=== PATIENT | female | born 1960 | race Caucasian/White ===

== ENCOUNTER 2018-05-27 06:54 | Emergency (ER) | payer BC, SELFPAY ==
[2018-05-27 06:58] VITALS: BP 167/80; PULSE 57; RESP 16; TEMP 36.7; O2SAT 98
--- NOTE | 2018-05-27 07:06 | W.ED.GENAD ---
Discharge Plan Disposition Patient Disposition: HOME Condition: Good Discharge Details Chief Complaint: Orthopedic Clinical Impression: Closed fracture of neck of left humerus Primary Care Provider: Phyllis Daniels ED Provider: Donis Simms Home Meds and New Rx's Prescriptions: Continue omeprazole 10 MG capsule,delayed release(DR/EC) 20 mg PO BID RF: 0 venlafaxine 37.5 MG tablet 37.5 mg PO HS RF: 0 omega-3 fatty acids-fish oil [Fish Oil] 1 EACH capsule 2 ea PO BID RF: 0 fexofenadine [Aller-ease] 180 MG tablet 1 tab PO DAILY RF: 0 fluticasone 16 GM spray,suspension 1 spry Inhalation PRN PRNRF: 0 Discharge Instructions Additional Instructions: Wear the sling for comfort but you may remove it as you want. Would avoid lifting anything with your left arm. Use ice to help with pain. Use Tylenol and Motrin as we discussed alternating so that something is always there for pain control. Follow-up with Dr. Flores within a week. Return to ED for numbness, weakness, worsening pain or other concerns Referrals: Alejandro Flores MD [ [facility] STAFF PHYSICIAN] - Medical Decision Making Patient with left shoulder injury, dislocation versus fracture versus soft tissue, but given the inability to move/lift arm without severe pain, likely the former. She is NVI distal and sensory in tact in the axillary nerve distribution. Some pain with ROM in the left elbow, but that seems to be coming from the shoulder. Otherwise exam is normal with no other injury. Will place IV and give morphine for pain prior to sending for x-ray. Patient has not had anything to eat or drink other than water to take the Motrin prior to coming in. X-rays were obtained. Patient has a left humeral neck fracture with some displacement. Elbow was negative. There is no dislocation. Case discussed and reviewed with Dr. Flores. Patient will follow up with him within the week. She will use a sling for comfort. Motrin, Tylenol, ice for pain. She declines narcotic pain medication. She is discharged home in good condition. HPI General Mode of arrival: ambulatory. Date/Time Provider Initiated Documentation: 05/27/18 07:05. Limitations to Documentation: no limitations. Information obtained by: patient. HPI Narrative: Patient presents to ED with left upper arm pain, mostly shoulder after tripping and falling this morning while taking the dogs out. She is right hand dominant. When she fell she struck a shed before hitting the ground. She denies LOC. She denies neck pain, chest pain, shortness of breath, back pain. She is ambulatory and drove herself here after taking Motrin at home. She is unable to move the left arm due to pain in the shoulder. She has no numbness or weakness distal. Related Data Home Medications Medication Instructions Recorded Confirmed omeprazole 20 mg PO BID tab-cap NS 05/25/13 05/27/18 fexofenadine [Aller-ease] 1 tab PO DAILY 06/24/13 05/27/18 fluticasone 1 spry INHALATION PRN PRN 06/25/13 05/27/18 venlafaxine 37.5 mg PO HS 12/13/14 05/27/18 omega-3 fatty acids-fish oil [Fish 2 ea PO BID 04/25/16 05/27/18 Oil] Allergies Allergy/AdvReac Type Severity Reaction Status Date / Time Environmental Allergy Mild Rhinitis Uncoded 06/11/17 20:00 General Stated Complaint: Orthopedic AMRIT: 4 Review of Systems Constitutional Denies headache(s) and Denies weakness ENT Denies headache(s), Denies epistaxis and Denies neck pain Cardiovascular Denies chest pain, Denies syncope and Denies dyspnea Respiratory Denies dyspnea Gastrointestinal Denies abdominal pain, Denies nausea and Denies vomiting Musculoskeletal Denies back pain, Reports arthralgias, Denies muscle weakness, Denies neck pain, Denies numbness and Denies tingling Integumentary/Breasts Denies wounds Neurologic Denies syncope, Denies headache(s), Denies focal weakness, Denies numbness, Denies tingling and Denies weakness PFSH Family History Maternal Aunt Personal history of malignant neoplasm Maternal Aunt Personal history of malignant neoplasm Medical History GERD (gastroesophageal reflux disease) (Chronic) Menopausal symptoms Social History Smoking/Tobacco Use Status: Former Tobacco Use Surgical History S/P cholecystectomy (Inactive) Ligation of fallopian tube Tonsillectomy and adenoidectomy Exam Const General: cooperative and other (uncomfortable) Nutritional Appearance: overweight Orientation: alert and oriented x3 HENMT Head: normocephalic and atraumatic General nose exam: external nose normal Face and sinus: normal facial exam Neck Neck: normal visual inspection, full ROM and supple Chest Chest: normal palpation of entire chest wall and no localized rib tenderness Resp Effort & Inspection: normal respiratory effort Auscultation: clear to auscultation bilaterally Cardio Rate: regular rate Rhythm: regular rhythm Heart Sounds: S1 normal and S2 normal Back/Spine/Pelvis Cervical Spine: cervical ROM normal and No cervical spinal tenderness Thoracic/Lumbar Spine: No thoracic spinal tenderness and No lumbar spinal tenderness Skin Trauma: no lacerations or abrasions Neuro General: alert, oriented x3, no focal motor deficits and CN's II-XI intact bilaterally Sensory Exam: no sensory deficits noted Extrem General: normal to inspection and normal exam except as noted Left upper extremity: normal capillary refill, shoulder/upper arm Details: tenderness, axillary nerve sensory function normal and abnormal ROM; no deformity, elbow/forearm Details: abnormal ROM and distal pulses intact; no tenderness, wrist Details: normal to inspection, normal ROM and radial pulse present; no tenderness and hand Details: normal to inspection, normal capillary refill, neuromotor exam normal and neurosensory exam normal; ROM limited Course Vital Signs Temperature 98.1 F 05/27/18 06:58 Pulse 57 L 05/27/18 06:58 Respiratory Rate 16 05/27/18 06:58 Blood Pressure 167/80 H 05/27/18 06:58 Pulse Oximetry 98 05/27/18 06:58 Temperature 98.1 F 05/27/18 06:58 Temperature Source Temporal Artery Scan 05/27/18 06:58 Pulse 57 L 05/27/18 06:58 Respiratory Rate 16 05/27/18 06:58 Respiratory Effort 05/27/18 07:01 Blood Pressure 167/80 H 05/27/18 06:58 Blood Pressure Position Sitting 05/27/18 06:58 Pulse Oximetry 98 05/27/18 06:58 Oxygen Delivery Method Room Air 05/27/18 06:58 Oxygen Flow Rate 0 05/27/18 06:58 Pain Level 10 05/27/18 06:58
--- NOTE | 2018-05-27 07:15 | DI.RAD_ITS ---
SYMPTOM/DIAGNOSIS: TRAUMA, PAIN LEFT SHOULDER: Three views. There is a comminuted fracture involving the proximal humerus. The main component of the fracture is a transverse fracture through the surgical neck. The fracture extends proximally into the region of the greater tuberosity. There is mild medial displacement of the distal fracture fragment. The glenohumeral joint appears well maintained as is the acromioclavicular joint. The soft tissues are unremarkable. IMPRESSION: Comminuted, mildly displaced fracture involving the proximal left humerus. LEFT ELBOW: Three views. No bone or joint abnormality is identified. The soft tissues are unremarkable. IMPRESSION: Negative examination.
--- NOTE | 2018-05-27 07:21 | ED.GENADUL_ITS ---
Discharge Plan Disposition Patient Disposition: HOME Condition: Good Discharge Details Chief Complaint: Orthopedic Clinical Impression: Closed fracture of neck of left humerus Primary Care Provider: Phyllis Daniels ED Provider: Donis Simms Home Meds and New Rx's Prescriptions: Continue omeprazole 10 MG capsule,delayed release(DR/EC) 20 mg PO BID RF: 0 venlafaxine 37.5 MG tablet 37.5 mg PO HS RF: 0 omega-3 fatty acids-fish oil [Fish Oil] 1 EACH capsule 2 ea PO BID RF: 0 fexofenadine [Aller-ease] 180 MG tablet 1 tab PO DAILY RF: 0 fluticasone 16 GM spray,suspension 1 spry Inhalation PRN PRNRF: 0 Discharge Instructions Additional Instructions: Wear the sling for comfort but you may remove it as you want. Would avoid lifting anything with your left arm. Use ice to help with pain. Use Tylenol and Motrin as we discussed alternating so that something is always there for pain control. Follow-up with Dr. Flores within a week. Return to ED for numbness, weakness, worsening pain or other concerns Referrals: Alejandro Flores MD [ [facility] STAFF PHYSICIAN] - Medical Decision Making Patient with left shoulder injury, dislocation versus fracture versus soft tissue, but given the inability to move/lift arm without severe pain, likely the former. She is NVI distal and sensory in tact in the axillary nerve distribution. Some pain with ROM in the left elbow, but that seems to be coming from the shoulder. Otherwise exam is normal with no other injury. Will place IV and give morphine for pain prior to sending for x-ray. Patient has not had anything to eat or drink other than water to take the Motrin prior to coming in. X-rays were obtained. Patient has a left humeral neck fracture with some displacement. Elbow was negative. There is no dislocation. Case discussed and reviewed with Dr. Flores. Patient will follow up with him within the week. She will use a sling for comfort. Motrin, Tylenol, ice for pain. She declines narcotic pain medication. She is discharged home in good condition. HPI General Mode of arrival: ambulatory . Date/Time Provider Initiated Documentation: 05/27/18 07:05 . Limitations to Documentation: no limitations . Information obtained by: patient . HPI Narrative: Patient presents to ED with left upper arm pain, mostly shoulder after tripping and falling this morning while taking the dogs out. She is right hand dominant. When she fell she struck a shed before hitting the ground. She denies LOC. She denies neck pain, chest pain, shortness of breath , back pain. She is ambulatory and drove herself here after taking Motrin at home. She is unable to move the left arm due to pain in the shoulder. She has no numbness or weakness distal. Related Data Home Medications Medication Instructions Recorded Confirmed omeprazole 20 mg PO BID tab-cap NS 05/25/13 05/27/18 fexofenadine [Aller-ease] 1 tab PO DAILY 06/24/13 05/27/18 fluticasone 1 spry INHALATION PRN PRN 06/25/13 05/27/18 venlafaxine 37.5 mg PO HS 12/13/14 05/27/18 omega-3 fatty acids-fish oil [Fish 2 ea PO BID 04/25/16 05/27/18 Oil] Allergies Allergy/AdvReac Type Severity Reaction Status Date / Time Environmental Allergy Mild Rhinitis Uncoded 06/11/17 20:00 General Stated Complaint: Orthopedic AMRIT: 4 Review of Systems Constitutional Denies headache(s) and Denies weakness ENT Denies headache(s), Denies epistaxis and Denies neck pain Cardiovascular Denies chest pain, Denies syncope and Denies dyspnea Respiratory Denies dyspnea Gastrointestinal Denies abdominal pain, Denies nausea and Denies vomiting Musculoskeletal Denies back pain, Reports arthralgias, Denies muscle weakness, Denies neck pain , Denies numbness and Denies tingling Integumentary/Breasts Denies wounds Neurologic Denies syncope, Denies headache(s), Denies focal weakness, Denies numbness, Denies tingling and Denies weakness PFSH Family History Maternal Aunt Personal history of malignant neoplasm Maternal Aunt Personal history of malignant neoplasm Medical History GERD (gastroesophageal reflux disease) (Chronic) Menopausal symptoms Social History Smoking/Tobacco Use Status: Former Tobacco Use Surgical History S/P cholecystectomy (Inactive) Ligation of fallopian tube Tonsillectomy and adenoidectomy Exam Const General: cooperative and other (uncomfortable) Nutritional Appearance: overweight Orientation: alert and oriented x3 HENMT Head: normocephalic and atraumatic General nose exam: external nose normal Face and sinus: normal facial exam Neck Neck: normal visual inspection, full ROM and supple Chest Chest: normal palpation of entire chest wall and no localized rib tenderness Resp Effort & Inspection: normal respiratory effort Auscultation: clear to auscultation bilaterally Cardio Rate: regular rate Rhythm: regular rhythm Heart Sounds: S1 normal and S2 normal Back/Spine/Pelvis Cervical Spine: cervical ROM normal and No cervical spinal tenderness Thoracic/Lumbar Spine: No thoracic spinal tenderness and No lumbar spinal tenderness Skin Trauma: no lacerations or abrasions Neuro General: alert, oriented x3, no focal motor deficits and CN's II-XI intact bilaterally Sensory Exam: no sensory deficits noted Extrem General: normal to inspection and normal exam except as noted Left upper extremity: normal capillary refill, shoulder/upper arm Details: tenderness, axillary nerve sensory function normal and abnormal ROM; no deformity, elbow/forearm Details: abnormal ROM and distal pulses intact; no tenderness, wrist Details: normal to inspection, normal ROM and radial pulse present; no tenderness and hand Details: normal to inspection, normal capillary refill, neuromotor exam normal and neurosensory exam normal; ROM limited Course Vital Signs Temperature 98.1 F 05/27/18 06:58 Pulse 57 L 05/27/18 06:58 Respiratory Rate 16 05/27/18 06:58 Blood Pressure 167/80 H 05/27/18 06:58 Pulse Oximetry 98 05/27/18 06:58 Temperature 98.1 F 05/27/18 06:58 Temperature Source Temporal Artery Scan 05/27/18 06:58 Pulse 57 L 05/27/18 06:58 Respiratory Rate 16 05/27/18 06:58 Respiratory Effort 05/27/18 07:01 Blood Pressure 167/80 H 05/27/18 06:58 Blood Pressure Position Sitting 05/27/18 06:58 Pulse Oximetry 98 05/27/18 06:58 Oxygen Delivery Method Room Air 05/27/18 06:58 Oxygen Flow Rate 0 05/27/18 06:58 Pain Level 10 05/27/18 06:58
[2018-05-27] MEDS: MORPHine 10 MG/ML VIAL 4 MG IVP (07:31)
--- NOTE | 2018-05-27 07:59 | DI.VRAD_ITS ---
EXAM: XR Left Shoulder Complete, 2 or More Views EXAM DATE/TIME: 05/27/2018 7:17 AM. CLINICAL HISTORY: 57 years old, female; Signs and symptoms; Other: Trauma TECHNIQUE: Two or more views of the left shoulder. COMPARISON: No relevant prior studies available. FINDINGS: Bones/joints: Comminuted proximal humeral fracture with main fracture fragment involving the humeral neck with slight displacement. Comminuted but nondisplaced fracture lines involve the lateral aspect of the humeral head.. No dislocation. Soft tissues: Unremarkable. IMPRESSION: Comminuted proximal humeral fracture with main fracture fragment involving the humeral neck with slight displacement. Comminuted but nondisplaced fracture lines involve the lateral aspect of the humeral head.. Dictated and Authenticated by: Wilfred Cavazos MD. Ordering:FRANKLIN HERNANDEZ MD
--- NOTE | 2018-05-27 08:00 | DI.VRAD_ITS ---
EXAM: XR Left Elbow Complete, 3 or More Views EXAM DATE/TIME: 05/27/2018 7:49 AM. CLINICAL HISTORY: 57 years old, female; Signs and symptoms; Other: Trauma TECHNIQUE: Frontal, lateral and oblique views of the left elbow. COMPARISON: No relevant prior studies available. FINDINGS: Bones/joints: Unremarkable. No acute fracture. No dislocation. Soft tissues: Unremarkable. IMPRESSION: Normal left elbow x-rays. Dictated and Authenticated by: Wilfred Cavazos MD. Ordering:FRANKLIN HERNANDEZ MD
== END 2018-05-27 08:27 | disposition home or self-care (01) ==
PROVIDERS: Emergency Provider Emergency Medicine; PCP Physician Assistant Medical
DX: S42.212A Unspecified displaced fracture of surgical neck of left humerus, initial encounter for closed fracture (principal); M25.522 Pain in left elbow; W01.198A Fall on same level from slipping, tripping and stumbling with subsequent striking against other object, initial encounter; I10 Essential (primary) hypertension
CPT/HCPCS: 23600; 96374; 99284; 73030; 73080; 99281; J2270; L3650

== ENCOUNTER 2018-06-02 10:46 | Outpatient (CLI) | payer BC, SELFPAY ==
--- NOTE | 2018-06-02 10:46 | DI.RAD_ITS ---
SYMPTOM/DIAGNOSIS: F/U FX LEFT SHOULDER: Comparison is made with 05/27/18. There has been no change in alignment of the comminuted fracture involving the proximal left humerus. No new fractures or dislocations are present.
== END 2018-06-02 11:06 ==
PROVIDERS: PCP Physician Assistant Medical; Visit Provider Orthopaedic Surgery
DX: S42.212D Unspecified displaced fracture of surgical neck of left humerus, subsequent encounter for fracture with routine healing (principal)
CPT/HCPCS: 73030

== ENCOUNTER 2018-06-11 10:27 | Outpatient (CLI) | payer BC, SELFPAY ==
--- NOTE | 2018-06-11 10:24 | DI.RAD_ITS ---
SYMPTOM/DIAGNOSIS: F/U FX LEFT SHOULDER: When compared with the previous study of 06/02, again noted is the impacted comminuted fracture of the proximal left humerus with no appreciable interval change when compared with the prior examination.
== END 2018-06-11 10:47 ==
PROVIDERS: PCP Physician Assistant Medical; Visit Provider Physician Assistant Surgical
DX: S42.212D Unspecified displaced fracture of surgical neck of left humerus, subsequent encounter for fracture with routine healing (principal)
CPT/HCPCS: 73030

== ENCOUNTER 2018-07-15 09:47 | Outpatient (CLI) | payer BC, SELFPAY ==
--- NOTE | 2018-07-15 09:39 | DI.RAD_ITS ---
SYMPTOM/DIAGNOSIS: F/U FX LEFT SHOULDER: Two views were obtained. The previously described proximal humeral fracture is again noted with no gross interval change in alignment of the fracture fragments in comparison with examination of 06/11.
== END 2018-07-15 10:07 ==
PROVIDERS: PCP Physician Assistant Medical; Visit Provider Orthopaedic Surgery
DX: S42.212D Unspecified displaced fracture of surgical neck of left humerus, subsequent encounter for fracture with routine healing (principal)
CPT/HCPCS: 73030

== ENCOUNTER 2018-08-12 09:26 | Outpatient (CLI) | payer BC, SELFPAY ==
--- NOTE | 2018-08-12 09:22 | DI.RAD_ITS ---
SYMPTOMS/DIAGNOSIS: INJURY LEFT SHOULDER: An impacted transverse fracture of the surgical neck of the left humerus is demonstrated. There has been no change in the apposition or alignment of the fracture when compared with the previous images of 07/15/18.
== END 2018-08-12 09:46 ==
PROVIDERS: PCP Physician Assistant Medical; Visit Provider Physician Assistant Surgical
DX: S42.212D Unspecified displaced fracture of surgical neck of left humerus, subsequent encounter for fracture with routine healing (principal)
CPT/HCPCS: 73030

== ENCOUNTER 2018-09-15 09:54 | Outpatient (CLI) | payer BC, SELFPAY ==
--- NOTE | 2018-09-15 09:50 | DI.RAD_ITS ---
SYMPTOMS/DIAGNOSIS: F/U FX LEFT SHOULDER: Two views. Comparison 08/12/18. There has been no change in alignment of the fracture involving the proximal left humerus. The healing process appears to be progressing without complication. No new fractures or dislocations are present.
== END 2018-09-15 10:14 ==
PROVIDERS: PCP Physician Assistant Medical; Visit Provider Orthopaedic Surgery
DX: S42.209D Unspecified fracture of upper end of unspecified humerus, subsequent encounter for fracture with routine healing (principal)
CPT/HCPCS: 73030

== ENCOUNTER 2018-11-10 13:45 | Emergency (ER) | payer BC, SELFPAY ==
[2018-11-10 13:50] VITALS: BP 161/77; PULSE 61; RESP 18; TEMP 36.5; O2SAT 99
--- NOTE | 2018-11-10 13:55 | W.ED.GENAD ---
Discharge Plan Disposition Patient Disposition: HOME Condition: Stable Discharge Details Chief Complaint: Orthopedic Clinical Impression: Sprain of right ankle Primary Care Provider: Phyllis Daniels ED Provider: Jody Swenson Home Meds and New Rx's Prescriptions: Continued acetaminophen 500 mg tablet 1,000 mg PO Q6H PRNRF: 0 ibuprofen [Advil] 200 mg tablet 200 mg PO Q6H RF: 0 omeprazole 10 MG capsule,delayed release(DR/EC) 20 mg PO BID RF: 0 venlafaxine 37.5 MG tablet 37.5 mg PO HS RF: 0 omega-3 fatty acids-fish oil [Fish Oil] 1 EACH capsule 2 ea PO BID RF: 0 fexofenadine [Aller-ease] 180 MG tablet 1 tab PO DAILY RF: 0 fluticasone propionate 16 GM spray,suspension 1 spry Inhalation PRN PRNRF: 0 Menopause Supplement 400 mcg Tablet 1 tab PO BID RF: 0 Discharge Instructions Instructions: Ankle Sprain (ED) Additional Instructions: Rest, ice, elevate right ankle as much as possible. Use the ankle splint and crutches for the next few days to help with resting your ankle. Follow-up with your primary care doctor in 1 week for reevaluation and for referral to orthopedics if your symptoms do not improve or worsen. Return to the emergency department any worsening or new concerning symptoms. Referrals: Jeff Mcintosh MD [ [facility] STAFF PHYSICIAN] - Discharge Data Discharge Date/Time-TO BE ENTERED AT DEPARTURE: 11/10/18 15:03 Discharge Physician: Jody Swenson Medical Decision Making 58yo F with right ankle pain for the past 3 weeks after she inverted her ankle when fell into a ditch 3 weeks ago. Mild to moderate edema and tenderness palpation of right lateral malleolus. Neurovascularly intact. No deformity noted. Patient declined dose of Motrin at this time. Will send for a right ankle x-ray. 1440 --right ankle x-ray negative. Will send home with an ankle stirrup splint and crutches to help with improving swelling and pain. Patient instructed on rest, ice, elevate, alternating Tylenol and Motrin. She is instructed to follow-up with the primary care doctor and with orthopedics if her symptoms do not improve or worsen. She is instructed to return here with any concerns. Medical Records Medical records reviewed: Yes I reviewed the patient's medical records. Imaging Data Radiologic Study: Radiologist's impression: a RAD:XR ankle RT complete SYMPTOMS/DIAGNOSIS: S/P TWISTED RT ANKLE, ? ACUTE FRACTURE RIGHT ANKLE: There is some soft tissue swelling over the lateral portion of the ankle and proximal foot. There is no evidence of a fracture or dislocation. HPI General Mode of arrival: ambulatory. Date/Time Provider Initiated Documentation: 11/10/18 13:53. Limitations to Documentation: no limitations. Information obtained by: patient. HPI Narrative: Patient is a 58-year-old female who presents to the ED with a complaint of right ankle pain for the past 3 weeks status post a twisting ankle injury 3 weeks ago. Patient states she was walking when she fell into a ditch twisting and inverting her right ankle. Patient states she has been ambulating on her ankle but with pain. Related Data Home Medications Medication Instructions Recorded Confirmed omeprazole 20 mg PO BID tab-cap NS 05/25/13 11/10/18 fexofenadine [Aller-ease] 1 tab PO DAILY 06/24/13 11/10/18 fluticasone propionate 1 spry INHALATION PRN PRN 06/25/13 11/10/18 venlafaxine 37.5 mg PO HS 12/13/14 11/10/18 omega-3 fatty acids-fish oil [Fish 2 ea PO BID 04/25/16 11/10/18 Oil] acetaminophen 500 mg tablet 1,000 mg PO Q6H PRN tab 07/15/18 11/10/18 ibuprofen 200 mg tablet 200 mg PO Q6H 07/15/18 11/10/18 Menopause Supplement 1 tab PO BID 11/10/18 11/10/18 Allergies Allergy/AdvReac Type Severity Reaction Status Date / Time Environmental Allergy Mild Rhinitis Uncoded 11/10/18 13:57 General AMRIT: 4 Review of Systems Review of Systems All systems reviewed & are unremarkable except as noted in HPI and below PFSH Medical History GERD (gastroesophageal reflux disease) (Chronic) Menopausal symptoms Surgical History S/P cholecystectomy (Inactive) Ligation of fallopian tube Tonsillectomy and adenoidectomy Family History Maternal Aunt Personal history of malignant neoplasm Maternal Aunt Personal history of malignant neoplasm Social History Smoking/Tobacco Use Status: Former Tobacco Use Drug use: Never Substance use type: does not use Do you feel safe at home: Yes Do you feel safe in your relationship?: Yes Exam Const General: cooperative, healthy appearing and no acute distress HENMT Head: normal to inspection Mouth: oral mucosae normal Eyes General: appearance normal, both eyes and all related structures Neck Neck: normal visual inspection Resp Effort & Inspection: normal respiratory effort and able to speak in complete sentences Cardio Rate: regular rate Skin General skin exam: no rashes or lesions noted Neuro General: alert, awake and oriented x3 Motor: muscle tone normal throughout Extrem Other: Tenderness to palpation and moderate edema noted to right lateral malleolus. No ecchymosis noted. No deformity noted. No tenderness to palpation of right fifth metatarsal. Normal toe exam. Right DP/PT pulses intact. Psych Appearance: grossly normal Affect: normal affect
--- NOTE | 2018-11-10 14:20 | DI.RAD_ITS ---
SYMPTOMS/DIAGNOSIS: S/P TWISTED RT ANKLE, ? ACUTE FRACTURE RIGHT ANKLE: There is some soft tissue swelling over the lateral portion of the ankle and proximal foot. There is no evidence of a fracture or dislocation.
== END 2018-11-10 15:03 | disposition home or self-care (01) ==
PROVIDERS: Emergency Provider Physician Assistant; PCP Physician Assistant Medical
DX: S93.401A Sprain of unspecified ligament of right ankle, initial encounter (principal); W17.2XXA Fall into hole, initial encounter
CPT/HCPCS: 29515; 99283; 73610; 99282; E0114; L4350

== ENCOUNTER 2019-01-06 07:00 | Outpatient (REF) | payer BC, SELFPAY ==
--- NOTE | 2019-01-06 13:30 | PAPFT_PTH ---
PATIENT: Afia Ernandez LOC: [facility] U#:[id number] AGE/SX: 58/F ROOM: RE01/06/[address]: Phyllis Daniels : 1960 BED: DIS: 01/06/2019 SPEC #: [id number] RECD: 01/07/19 12:55 STATUS: ALEXEY CHENG #: [id number] CLARA: 01/06/19 13:[address]: Phyllis Daniels DEPT: [facility] [place] Cytology RECD BY: Shahla Reid Tissues: 1 - CX/ENDOCX FOR PAP SMEARS Procedures: PAP THIN PREP/UVM Screening HPV DNA PROBE Comments: [id number]
== END 2019-01-06 07:20 ==
LOC: NCHCN 07:00
PROVIDERS: PCP Physician Assistant Medical; Visit Provider Physician Assistant Medical
DX: Z12.4 Encounter for screening for malignant neoplasm of cervix (principal); Z11.51 Encounter for screening for human papillomavirus (HPV)
CPT/HCPCS: 88142; 87624

== ENCOUNTER 2019-01-19 00:57 | Outpatient (CLI) | payer BC, SELFPAY ==
--- NOTE | 2019-01-19 14:18 | DI.MAMMO_ITS ---
SYMPTOM/DIAGNOSIS: SCREENING, HEALTH MAINTENANCE EXAM, Z00.8 MAMMOGRAMS: Mammograms were interpreted according to the usual protocol including computer analysis with CAD system, tomosynthesis and C view imaging. Comparison is made with prior examinations. Breast density, Category D. No suspicious masses or microcalcifications are seen. There is no definite evidence of malignancy. IMPRESSION: Negative mammogram. Routine screening is recommended. Category 1. MQSA ASSESSMENT OF FINDINGS: Negative. Category 1. Patient will receive a letter notifying them of these results. BI-RADS category D. The breasts are extremely dense, which lowers the sensitivity of mammography.
--- NOTE | 2019-01-19 15:00 | DI.RAD_ITS ---
SYMPTOMS/DIAGNOSIS: HEALTH MAINTENANCE EXAM, Z00.8 DEXA SCAN: Routine examination. Evaluation of the spine shows no compression deformities. Evaluation of the left hip shows a total T score of -1.3 and a Z score of -0.5. This is consistent with osteopenia and an increased fracture risk. This compares with a total T score of -0.8 in 2016. Evaluation of the lumbar spine shows a total T score of -2.6 and a Z score of -1.4. This is consistent with osteoporosis and a high fracture risk. This compares with a total T score of - 2.4 from 2016. IMPRESSION: Findings of osteoporosis in the lumbar spine and osteopenia in the left hip.
== END 2019-01-19 01:17 ==
PROVIDERS: PCP Physician Assistant Medical; Visit Provider Physician Assistant Medical
DX: Z00.00 Encounter for general adult medical examination without abnormal findings (principal); Z12.31 Encounter for screening mammogram for malignant neoplasm of breast; M81.0 Age-related osteoporosis without current pathological fracture; M85.88 Other specified disorders of bone density and structure, other site
CPT/HCPCS: 77063; 77067; 77080

== ENCOUNTER 2019-02-08 09:26 | Outpatient (CLI) | payer BC, SELFPAY ==
[2019-02-08 13:56] LABS: ALT 80 U/L (12-78); AST 33 U/L (15-37); Albumin 3.7 g/dL (3.4-5.0); Alkaline Phosphatase 84 U/L (46-116); Anion Gap 12.5 mmol/L (3-11); BUN 16 mg/dL (7-18); Bilirubin, Total 0.3 mg/dL (0.2-1.0); CO2 23.5 mmol/L (21.0-32.0); Calcium 9.5 mg/dL (8.5-10.1); Chloride 104 mmol/L (98-107); Cholesterol 262 mg/dL (50-200); Glucose 97 mg/dL (70-100); HDL Cholesterol 31 mg/dL (40-60); Potassium 4.2 mmol/L (3.5-5.1); Sodium 140 mmol/L (136-145); Triglyceride 567 mg/dL (30-150)
[2019-02-08 14:18] LABS: LDL CHOLESTEROL 136 mg/dL (<100)
== END 2019-02-08 09:46 ==
PROVIDERS: PCP Physician Assistant Medical; Visit Provider Physician Assistant Medical
DX: Z00.00 Encounter for general adult medical examination without abnormal findings (principal); E78.5 Hyperlipidemia, unspecified
CPT/HCPCS: 36415; 80053; 80061; 83721

== ENCOUNTER 2019-05-19 09:48 | Outpatient (CLI) | payer BC, SELFPAY ==
[2019-05-19 10:39] LABS: Hemoglobin A1C 5.4 % (4.5-6.2)
[2019-05-19 11:32] LABS: ALT 56 U/L (14-59); AST 22 U/L (15-37); Albumin 3.8 g/dL (3.4-5.0); Alkaline Phosphatase 64 U/L (46-116); Anion Gap 9.3 mmol/L (3-11); BUN 17 mg/dL (7-18); Bilirubin, Total 0.3 mg/dL (0.2-1.0); CO2 25.7 mmol/L (21.0-32.0); CREATININE 0.96 mg/dL (0.55-1.02); Calcium 9.4 mg/dL (8.5-10.1); Calculated LDL 175 mg/dL; Chloride 106 mmol/L (98-107); Cholesterol 241 mg/dL (50-200); Glucose 94 mg/dL (70-100); HDL Cholesterol 34 mg/dL (40-60); Potassium 4.4 mmol/L (3.5-5.1); Sodium 141 mmol/L (136-145); Total Protein 7.1 g/dL (6.4-8.2); Triglyceride 162 mg/dL (30-150)
== END 2019-05-19 10:08 ==
PROVIDERS: PCP Physician Assistant Medical; Visit Provider Physician Assistant Medical
DX: E78.5 Hyperlipidemia, unspecified (principal); R73.01 Impaired fasting glucose
CPT/HCPCS: 36415; 80053; 80061; 83036

== ENCOUNTER 2019-05-31 15:57 | Outpatient (REF) | payer BC, SELFPAY ==
--- NOTE | 2019-05-31 15:40 | SKI_PTH ---
PATIENT: Afia Ernandez LOC: [facility] U#:[id number] AGE/SX: 58/F ROOM: RE05/31/[address]: Jorge Valencia DO : 1960 BED: DIS: 05/31/2019 SPEC #: [id number] RECD: 05/31/19 18:14 STATUS: ALEXEY REQ #: [id number] CLARA: 05/31/19 15:[address]: Jorge Valencia DEPT: Surgical Specimen RECD BY: Shahla Reid ENTERED: 05/31/19 18:14 SP TYPE: SWETHA MIRANDA DR: Phyllis Daniels Tissues: 1 - SKIN BIOPSY(SHAVE/PUNCH) Procedures: SKIN LEVEL 4 Comments: [id number]
== END 2019-05-31 16:17 ==
LOC: LBN 15:57
PROVIDERS: PCP Physician Assistant Medical; Visit Provider Otolaryngology Otolaryngology/Facial Plastic Surgery
DX: D23.39 Other benign neoplasm of skin of other parts of face (principal)
CPT/HCPCS: 88305

== ENCOUNTER 2020-01-12 08:35 | Outpatient (REF) | payer BC, SELFPAY ==
[2020-01-12 18:58] LABS: Anion Gap 9.7 mmol/L (3-11); BUN 24 mg/dL (7-18); CO2 27.3 mmol/L (21.0-32.0); CREATININE 1.03 mg/dL (0.55-1.02); Calculated LDL 159 mg/dL (<100); Chloride 100 mmol/L (98-107); Cholesterol 248 mg/dL (<200); Estimated GFR 55.23 (mL/min/1.73m2); Glucose 114 mg/dL (74-106); HDL Cholesterol 30 mg/dL (40-60); Potassium 4.2 mmol/L (3.5-5.1); Sodium 137 mmol/L (136-145); TSH (W/Ref FT4) 1.64 uIU/mL (0.36-3.74); Triglyceride 295 mg/dL (<150)
== END 2020-01-12 08:55 ==
LOC: NCHCN 08:35
PROVIDERS: PCP Physician Assistant Medical; Visit Provider Nurse Practitioner Family
DX: I10 Essential (primary) hypertension (principal); E78.5 Hyperlipidemia, unspecified; Z00.00 Encounter for general adult medical examination without abnormal findings
CPT/HCPCS: 80048; 80061; 84443

== ENCOUNTER 2020-01-21 17:04 | Outpatient (REF) | payer BC, SELFPAY | END 2020-01-21 17:24 | LOC: NCHCN 17:04 | PROVIDERS: PCP Physician Assistant Medical; Visit Provider Physician Assistant Medical | DX: R30.0 Dysuria (principal) | CPT/HCPCS: 87077; 87086; 87186 ==

== ENCOUNTER 2020-03-13 21:06 | Outpatient (REF) | payer BC, SELFPAY ==
[2020-03-13 19:57] LABS: ALT 63 U/L (14-59); AST 29 U/L (15-37); Albumin 4.1 g/dL (3.4-5.0); Alkaline Phosphatase 47 U/L (46-116); Anion Gap 8.6 mmol/L (3-11); BUN 17 mg/dL (7-18); Bilirubin, Total 0.4 mg/dL (0.2-1.0); CO2 24.4 mmol/L (21.0-32.0); CREATININE 0.96 mg/dL (0.55-1.02); Calcium 9.7 mg/dL (8.5-10.1); Calculated LDL 114 mg/dL (<100); Chloride 105 mmol/L (98-107); Cholesterol 200 mg/dL (<200); Estimated GFR 59.91 (mL/min/1.73m2); Glucose 93 mg/dL (74-106); HDL Cholesterol 30 mg/dL (40-60); Potassium 4.2 mmol/L (3.5-5.1); Sodium 138 mmol/L (136-145); Total Protein 6.8 g/dL (6.4-8.2); Triglyceride 283 mg/dL (<150)
== END 2020-03-13 21:26 ==
LOC: NCHCN 21:06
PROVIDERS: PCP Physician Assistant Medical; Visit Provider Physician Assistant Medical
DX: E78.5 Hyperlipidemia, unspecified (principal); I10 Essential (primary) hypertension
CPT/HCPCS: 80053; 80061

== ENCOUNTER 2020-06-12 11:56 | Outpatient (REF) | payer BC, SELFPAY ==
[2020-06-12 19:22] LABS: Abs Immature Grans 0.02 10^3/uL (0.0-0.06); Absolute Basophil Count 0.07 10^3/uL (0.0-0.2); Absolute Eosinophil Count 0.11 10^3/uL (0.0-0.7); Absolute Lymphocyte Count 2.81 10^3/uL (1.2-3.4); Absolute Monocyte Count 0.85 10^3/uL (0.1-0.8); Absolute Neutrophil Count 4.07 10^3/uL (1.2-6.7); Basophils % 0.9; Eosinophils % 1.4; HCT 43.3 % (36.0-46.0); HGB 14.8 g/dL (11.2-15.7); Immature Grans % 0.3; Lymphocytes % 35.4; MCH 31.6 pg (27.0-33.0); MCHC 34.2 % (32.0-36.0); MCV 92.3 fL (80-95); MPV 11.1 fL (8.0-11.0); Monocytes % 10.7; Neutrophils % 51.3; Nucleated RBC 0 %; Platelet Count 317 10^3/uL (130-400); RBC 4.69 10^6/uL (3.93-5.22); RDW 12.2 % (11.7-14.6); RDW-SD 41.5 fL; WBC 7.93 10^3/uL (4.4-10.8)
[2020-06-12 19:57] LABS: ALT 69 U/L (14-59); AST 28 U/L (15-37); Albumin 4.4 g/dL (3.4-5.0); Alkaline Phosphatase 44 U/L (46-116); BUN 19 mg/dL (7-18); Bilirubin, Total 0.4 mg/dL (0.2-1.0); Calcium 9.9 mg/dL (8.5-10.1); Calculated LDL 133 mg/dL (<100); Chloride 104 mmol/L (98-107); Cholesterol 231 mg/dL (<200); Glucose 98 mg/dL (74-106); HDL Cholesterol 32 mg/dL (40-60); Potassium 4.6 mmol/L (3.5-5.1); Sodium 141 mmol/L (136-145); Total Protein 7.7 g/dL (6.4-8.2); Triglyceride 330 mg/dL (<150)
[2020-06-12 20:11] LABS: Hemoglobin A1C 5.7 % (<5.7)
[2020-06-12 20:34] LABS: Amylase 43 U/L (25-115); Lipase 211 U/L (73-393)
== END 2020-06-12 12:16 ==
LOC: NCHCN 11:56
PROVIDERS: PCP Physician Assistant Medical; Visit Provider Physician Assistant Medical
DX: R10.11 Right upper quadrant pain (principal); I10 Essential (primary) hypertension; E78.5 Hyperlipidemia, unspecified
CPT/HCPCS: 80053; 80061; 83690; 82150; 83036; 85025

== ENCOUNTER 2020-06-19 00:53 | Outpatient (CLI) | payer BC, SELFPAY ==
--- NOTE | 2020-06-19 | DI.CT_ITS ---
EXAM: CT ABDOMEN PELVIS W INDICATION: RUQ PAIN,R10.11,ACUTE DIARRHEA.R19.7,H/O ABNL KIDNEY. COMPARISON: No exams were available for comparison TECHNIQUE: FINDINGS: CT examination of the abdomen and pelvis was performed with a bolus infusion of 100 cc of Omnipaque 3 50. Images obtained through the lung bases are unremarkable. There is moderate to severe hepatic steatosis.. The gallbladder has been surgically removed. There is no evidence of biliary dilatation.. Pancreas appears normal. Spleen is unremarkable in appearance. Adrenals appear normal. 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 Urinary bladder unremarkable. Abdominal aorta is of normal diameter and no major vascular abnormality is seen. No abdominal wall hernia. No abdominal or pelvic adenopathy. [employer] structures appear intact. Appendix is normal. No evidence of diverticulitis or bowel obstruction. IMPRESSION: Hepatic steatosis. No other significant findings on CT of the abdomen and pelvis. RADIATION DOSE DELIVERED: 925.37mGy.cm Total DLP 925.37mGy.cm Total DLP
[2020-06-19] MEDS: Omnipaque 350 MG/ML 50 ML BTL IJ (07:31)
[2020-06-19] MEDS: Breeza Beverage 473 ML BTL PO ×2 (07:32→07:33)
[2020-06-19] MEDS: Omnipaque 350 MG/ML 100 ML BTL IJ (09:14)
[2020-06-19] MEDS: Normal Saline - Diluent 50 ML VIAL IV (09:14)
== END 2020-06-19 01:13 ==
PROVIDERS: PCP Physician Assistant Medical; Visit Provider Physician Assistant Medical
DX: K76.0 Fatty (change of) liver, not elsewhere classified (principal); R10.11 Right upper quadrant pain; R19.7 Diarrhea, unspecified
CPT/HCPCS: 74177; J3490; Q9967

== ENCOUNTER 2021-01-16 16:06 | Outpatient (REF) | payer BC, SELFPAY ==
[2021-01-16 16:10] LABS: Hemoglobin A1C 5.5 % (<5.7)
[2021-01-16 16:36] LABS: ALT 63 U/L (14-59); AST 29 U/L (15-37); Alkaline Phosphatase 44 U/L (46-116); Anion Gap 11.2 mmol/L (3-11); Bilirubin, Total 0.3 mg/dL (0.2-1.0); CO2 26.8 mmol/L (21.0-32.0); CREATININE 0.8 mg/dL (0.55-1.02); Calcium 9.6 mg/dL (8.5-10.1); Calculated LDL 125 mg/dL (<100); Chloride 107 mmol/L (98-107); Cholesterol 186 mg/dL (<200); Glucose 97 mg/dL (74-106); HDL Cholesterol 30 mg/dL (40-60); Potassium 3.9 mmol/L (3.5-5.1); Sodium 145 mmol/L (136-145); Total Protein 7.1 g/dL (6.4-8.2); Triglyceride 158 mg/dL (<150)
[2021-01-16 16:42] LABS: BUN 13 mg/dL (7-18)
== END 2021-01-16 16:07 | disposition home or self-care (01) ==
LOC: NCHCN 16:06
PROVIDERS: PCP Physician Assistant Medical; Visit Provider Physician Assistant Medical
DX: I10 Essential (primary) hypertension (principal); E78.5 Hyperlipidemia, unspecified; R73.03 Prediabetes
CPT/HCPCS: 80053; 80061; 83036

== ENCOUNTER 2021-02-13 11:42 | Outpatient (REF) | payer BC, SELFPAY ==
[2021-02-14 14:45] LABS: COVID-19 RT-PCR UVMMC Result Negative (Negative)
== END 2021-02-13 11:43 | disposition home or self-care (01) ==
LOC: LBN 11:42
PROVIDERS: PCP Physician Assistant Medical; Visit Provider Family Medicine
DX: Z20.822 Contact with and (suspected) exposure to COVID-19 (principal); J06.9 Acute upper respiratory infection, unspecified
CPT/HCPCS: U0003

== ENCOUNTER 2021-03-20 02:52 | Outpatient (CLI) | payer BC, SELFPAY ==
--- NOTE | 2021-03-20 11:50 | DI.MAMMO_ITS ---
Exam(s) MAMMO SCREENING EXAM: MAMMO SCREENING CLINICAL HISTORY: SCREENING, HEALTH MAINTENANCE,Z00.8 TECHNIQUE: Bilateral full field digital CC and MLO mammographic images were obtained with 3D tomosyn thesis and utilizing computer aided detection (CAD). COMPARISON: Available for comparison. FINDINGS: Masses/Architectural Distortion: None seen. Microcalcifications: No suspicious pleomorphic-type are seen. Skin Thickening/Nipple Retraction: None. IMPRESSION: 1. No significant interval change with no specific features of malignancy noted. 2. Unless there is more urgent need, screening mammography is recommended, as per [place] [employer] guidelines. BI-RADS Category 1 - Negative Breast Density - Category C - Heterogeneously dense Breast density category C or D implies that the patient has dense breast tissue. Dense breast tissue is very common and is not abnormal but dense breast tissue can make it harder to find cancer on a ma mmogram. Also, dense breast tissue may increase their breast cancer risk. This information about the result of the mammogram report was provided to the patient to raise their awareness. Use this report when you speak with the patient about their risks for breast cancer, which includes their family hist ory. At that time, you may recommend for more screening tests (Ultrasound or MRI) as they might be us eful based on their risk. A negative radiographic report should not delay biopsy if a dominant or clinically suspicious mass is present. Up to ten percent of cancers are not identified on mammography. A negative report may reinforce clinical impression. Adenosis and dense breasts may obscure an underlying neoplasm. False positive reports average 6 to 10%. Patient will receive a letter notifying them of these results.
== END 2021-03-20 03:12 ==
PROVIDERS: PCP Physician Assistant Medical; Visit Provider Physician Assistant Medical
DX: Z12.31 Encounter for screening mammogram for malignant neoplasm of breast (principal); Z00.8 Encounter for other general examination; R92.8 Other abnormal and inconclusive findings on diagnostic imaging of breast
CPT/HCPCS: 77063; 77067

== ENCOUNTER 2021-11-12 13:32 | Outpatient (REF) | payer BC, SELFPAY ==
[2021-11-12 20:05] LABS: Hemoglobin A1C 5.6 % (<5.7)
[2021-11-12 20:07] LABS: ALT 71 U/L (14-59); AST 28 U/L (15-37); Albumin 4.5 g/dL (3.4-5.0); Alkaline Phosphatase 52 U/L (46-116); Anion Gap 10.8 mmol/L (3-11); BUN 18 mg/dL (7-18); Bilirubin, Total 0.3 mg/dL (0.2-1.0); CO2 23.2 mmol/L (21.0-32.0); Calcium 10.2 mg/dL (8.5-10.1); Calculated LDL 135 mg/dL (<100); Chloride 104 mmol/L (98-107); Cholesterol 233 mg/dL (<200); Estimated GFR 56.75 (mL/min/1.73m2); Glucose 100 mg/dL (74-106); HDL Cholesterol 33 mg/dL (40-60); Potassium 4.4 mmol/L (3.5-5.1); Sodium 138 mmol/L (136-145); Total Protein 7.7 g/dL (6.4-8.2); Triglyceride 326 mg/dL (<150)
== END 2021-11-12 13:33 | disposition home or self-care (01) ==
LOC: NCHCN 13:32
PROVIDERS: PCP Physician Assistant Medical; Visit Provider Physician Assistant Medical
DX: Z00.00 Encounter for general adult medical examination without abnormal findings (principal); I10 Essential (primary) hypertension; R73.03 Prediabetes; E78.5 Hyperlipidemia, unspecified
CPT/HCPCS: 80053; 80061; 83036

== ENCOUNTER 2022-02-06 15:32 | Outpatient (REF) | payer BC, SELFPAY ==
[2022-02-06 14:53] LABS: Abs Immature Grans 0.03 10^3/uL (0.0-0.06); Absolute Basophil Count 0.08 10^3/uL (0.0-0.2); Absolute Eosinophil Count 0.07 10^3/uL (0.0-0.7); Absolute Lymphocyte Count 2.31 10^3/uL (1.2-3.4); Absolute Monocyte Count 0.62 10^3/uL (0.1-0.8); Absolute Neutrophil Count 3.54 10^3/uL (1.2-6.7); Basophils % 1.2; Eosinophils % 1.1; HCT 40.3 % (36.0-46.0); HGB 13.8 g/dL (11.2-15.7); Immature Grans % 0.5; Lymphocytes % 34.7; MCH 31.7 pg (27.0-33.0); MCHC 34.2 % (32.0-36.0); MCV 92 fL (80-95); MPV 11.1 fL (8.0-11.0); Monocytes % 9.3; Neutrophils % 53.2; Platelet Count 360 10^3/uL (130-400); RBC 4.36 10^6/uL (3.93-5.22); RDW 12.3 % (11.7-14.6); RDW-SD 41.8 fL; WBC 6.65 10^3/uL (4.4-10.8)
[2022-02-06 15:06] LABS: ALT 57 U/L (14-59); AST 27 U/L (15-37); Albumin 4.4 g/dL (3.4-5.0); Alkaline Phosphatase 46 U/L (46-116); Anion Gap 6.8 mmol/L (3-11); BUN 20 mg/dL (7-18); Bilirubin, Total 0.3 mg/dL (0.2-1.0); CO2 28.2 mmol/L (21.0-32.0); CREATININE 0.9 mg/dL (0.55-1.02); Calcium 10.7 mg/dL (8.5-10.1); Chloride 107 mmol/L (98-107); Glucose 95 mg/dL (74-106); Potassium 5.2 mmol/L (3.5-5.1); Sodium 142 mmol/L (136-145); Total Protein 7.3 g/dL (6.4-8.2)
== END 2022-02-06 15:33 | disposition home or self-care (01) ==
LOC: LBN 15:32
PROVIDERS: PCP Physician Assistant Medical; Visit Provider Physician Assistant Medical
DX: M79.661 Pain in right lower leg (principal)
CPT/HCPCS: 80053; 85025

== ENCOUNTER 2022-02-27 14:04 | Emergency (ER) | payer BC, SELFPAY ==
[2022-02-27] VITALS (27 sets, daily range): BP systolic 138–160; BP diastolic 65–75; PULSE 51–64; RESP 9–23; TEMP 36.5; O2SAT 95–99
--- NOTE | 2022-02-27 15:00 | DI.CT_ITS ---
Exam(s) CT ABDOMEN PELVIS WO EXAM: CT ABDOMEN PELVIS WO CLINICAL HISTORY: abdominal pain, flank pain, nausea, vomiting. TECHNIQUE: Imaging Protocol: Axial computed tomography images with coronal and sagittal reformatted images were created and reviewed. Oral: no COMPARISON: CT CT ABDOMEN PELVIS W from 06/19/2020 FINDINGS: ABDOMEN: Lung Bases: Normal where visualized. Liver: Enlarged. Extreme hepatic steatosis.. No measurable mass. Gallbladder and biliary tract: Status post cholecystectomy. No radiodense calculus or dilation. Pancreas: Normal density, no abnormal calcifications or inflammatory process. Spleen: Normal. Kidneys: Normal size, contour and axis. No radiodense stones or obstructive uropathy. No masses seen. Adrenal glands: No masses seen. Lymph nodes: Within normal limits. Abdominal Aorta: Abdominal portion non-dilated. PELVIS: Bladder: Symmetric distention, no gross wall thickening. Bowel: Stomach unremarkable. Appendix normal. No obstruction or bowel wall thickening. Peritoneal cavity: No ascites, collection or mesenteric inflammatory response. Reproductive organs: Within normal limits. Bones: Mild degenerative changes L5-S1.. IMPRESSION: Enlarged liver with extreme fatty infiltration, stable,. Otherwise unremarkable CT scan of the abdom en and pelvis. RADIATION DOSE DELIVERED: 790.57mGy.cm Total DLP DATA REPOSITORY: All CT scans at this facility are submitted to the National Radiology Data Registry (NRDR) Dose Index Registry (DIR) with the [employer] (A[employer]). RADIATION OPTIMIZATION: All CT scans at this facility use at least one of these dose optimization te chniques: automated exposure control; mA and/or kV adjustment per patient size (includes targeted exa ms where dose is matched to clinical indication); or iterative reconstruction.
--- NOTE | 2022-02-27 15:00 | RT.EKG_ITS ---
APPROVED REPORT Exam: Resting ECG Reason for Exam: nausea vomiting Patient Location: E HR:52 bpm ECG Measurements Heart Rate 52 AXIS ID 146 P 28 QRSd 100 QRS -14 QT 434 T 5 QTc 404 Conclusion Sinus bradycardia...rate< 60 sinus bradycardia, left axis, [place] waves
[2022-02-27] MEDS: Ondansetron 4 MG/2 ML VIAL IVP (15:39)
[2022-02-27] MEDS: Ketorolac 15 MG/ML VIAL IVP (15:39)
[2022-02-27] MEDS: Normal Saline 1,000 ML 1000 ML IV (15:40)
[2022-02-27 15:47] LABS: Bilirubin Negative (Negative); Blood Negative (Negative); Clarity Clear (Clear); Glucose Negative (Negative); Ketones Negative (Negative); Leukocyte Esterase Small (Negative); Nitrite Negative (Negative); Urobilinogen 0.2 EU/dL (Up TO 0.2)
[2022-02-27 16:02] LABS: Abs Immature Grans 0.02 10^3/uL (0.0-0.06); Absolute Basophil Count 0.06 10^3/uL (0.0-0.2); Absolute Eosinophil Count 0.07 10^3/uL (0.0-0.7); Absolute Lymphocyte Count 2.34 10^3/uL (1.2-3.4); Absolute Monocyte Count 0.51 10^3/uL (0.1-0.8); Absolute Neutrophil Count 2.64 10^3/uL (1.2-6.7); Basophils % 1.1; Eosinophils % 1.2; HCT 36.3 % (36.0-46.0); HGB 12.4 g/dL (11.2-15.7); Immature Grans % 0.4; Lymphocytes % 41.5; MCH 31.4 pg (27.0-33.0); MCHC 34.2 % (32.0-36.0); MCV 92 fL (80-95); MPV 10.5 fL (8.0-11.0); Neutrophils % 46.8; Platelet Count 296 10^3/uL (130-400); RBC 3.95 10^6/uL (3.93-5.22); RDW 12.2 % (11.7-14.6); RDW-SD 41.1 fL; WBC 5.64 10^3/uL (4.4-10.8)
[2022-02-27 16:08] LABS: ALT 54 U/L (14-59); AST 24 U/L (15-37); Albumin 3.8 g/dL (3.4-5.0); Alkaline Phosphatase 41 U/L (46-116); Anion Gap 9.4 mmol/L (3-11); BUN 17 mg/dL (7-18); Bilirubin, Total 0.3 mg/dL (0.2-1.0); CO2 22.6 mmol/L (21.0-32.0); CREATININE 0.9 mg/dL (0.55-1.02); Calcium 9.7 mg/dL (8.5-10.1); Chloride 106 mmol/L (98-107); Glucose 119 mg/dL (74-106); Lipase 159 U/L (73-393); Potassium 3.5 mmol/L (3.5-5.1); Sodium 138 mmol/L (136-145); Troponin I < 50 ng/L (<or=60)
[2022-02-27 16:16] LABS: Bacteria Negative HPF (Negative); C & S Indicated? Yes; Casts Negative LPF (Negative); Crystals Negative HPF (Negative); Epithelial Cells Rare HPF (Negative); Mucus Negative (Negative); Other Cells Rare Renal (Negative); RBC Negative HPF (0-2); WBC 0-2 HPF (0-5)
--- NOTE | 2022-02-27 16:37 | ED.GENADUL_ITS ---
Discharge Plan Disposition Patient Disposition: HOME Condition: Improving Discharge Details Clinical Impression: Back pain Primary Care Provider: Phyllis Daniels ED Provider: Jeancarlos Field Home Meds and New Rx's Prescriptions: New cyclobenzaprine 5 mg tablet 5 mg PO ONCE PRN (Reason: muscle spasm) Qty: 5 0RF lidocaine [Lidoderm] 5 % adhesive patch,medicated 1 patch topical DAILY Qty: 15 0RF Rx Instructions: leave on most painful area for up to 12 hrs No Action acetaminophen 500 mg tablet 1,000 mg PO Q6H PRN ibuprofen [Advil] 200 mg tablet 200 mg PO Q6H omeprazole 10 MG capsule,delayed release(DR/EC) 20 mg PO BID Label Comments: 04.25.16 pt states she takes qday.HE venlafaxine 37.5 MG tablet 37.5 mg PO HS omega-3 fatty acids-fish oil [Fish Oil] 1 EACH capsule 2 ea PO BID fexofenadine [Aller-ease] 180 MG tablet 1 tab PO DAILY fluticasone propionate 16 GM spray,suspension 1 spry Inhalation PRN PRN Label Comments: 06/25/13- pt has not used in a month Menopause Supplement 400 mcg Tablet 1 tab PO BID losartan 100 mg tablet 1 tab PO 1XD Label Comments: TAKE ONE TABLET BY MOUTH EVERY DAY venlafaxine 37.5 mg capsule,extended release 24hr 1 cap PO 1XD Label Comments: TAKE ONE CAPSULE BY MOUTH EVERY DAY alendronate 70 mg tablet 1 tab PO 1XD Label Comments: TAKE 1 TABLET BY MOUTH ONCE A WEEK omeprazole 20 mg capsule,delayed release(DR/EC) 1 cap PO 1XD Label Comments: TAKE ONE CAPSULE BY MOUTH EVERY DAY albuterol sulfate 90 mcg/actuation HFA aerosol inhaler 1 inh INHALATION PRN PRN Label Comments: INHALE 2 PUFFS BY MOUTH EVERY 4-6 HOURS NEEDED fenofibrate 160 mg tablet 1 tab PO 1XD Label Comments: TAKE ONE TABLET BY MOUTH EVERY DAY Discharge Instructions Instructions: Back Pain (ED) Additional Instructions: Please use medications as prescribed. Consider using ibuprofen and/or acetaminophen for continued pain, heat and ice as needed. Please return the emergency department for any worsening symptomatology. Medical Decision Making 61-year-old female presents with bilateral lower back pain rating to her abdomen. Hemodynamically stable nontoxic abdomen soft nontender nondistended. No urinary symptoms. Consider muscle spasm versus back strain versus must consider kidney stone versus less likely pyelonephritis versus less likely bowel obstruction colitis cholecystitis or appendicitis. Screening labs imaging analgesia. 16: 39 patient feeling better after fluids and medication. Labs and imaging unremarkable. Likely musculoskeletal nature. Home care instructions and return precautions given HPI General Date/Time Provider Initiated Documentation: 02/27/22 14:21 . HPI Narrative: 61-year-old female presents with bilateral lower back pain radiating down to her abdomen. Denies chest pain shortness of breath. Denies urinary symptomatology. Denies history of kidney stones. Related Data Home Medications Medication Instructions Recorded Confirmed omeprazole 10 mg capsule,delayed 20 mg PO BID 05/25/13 02/27/22 release fexofenadine 180 mg tablet 1 tab PO DAILY 06/24/13 02/27/22 (Aller-ease) fluticasone propionate 50 1 spry inhalation PRN PRN 06/25/13 02/27/22 mcg/actuation nasal spray,suspension venlafaxine 37.5 mg tablet 37.5 mg PO HS 12/13/14 02/27/22 omega-3 fatty acids-fish oil 300 2 ea PO BID 04/25/16 02/27/22 mg-1,000 mg capsule (Fish Oil) acetaminophen 500 mg tablet 1,000 mg PO Q6H PRN 07/15/18 02/27/22 ibuprofen 200 mg tablet (Advil) 200 mg PO Q6H 07/15/18 02/27/22 multivitamin,Ca,mineral-folic 1 tab PO BID 11/10/18 11/10/18 acid-herbal no.157 400 mcg tablet (Menopause Supplement) albuterol sulfate 90 mcg/actuation 1 inh inhalation PRN PRN 02/27/22 02/27/22 aerosol inhaler alendronate 70 mg tablet 1 tab PO 1XD 02/27/22 02/27/22 cyclobenzaprine 5 mg tablet 5 mg PO ONCE PRN muscle spasm #5 02/27/22 tabs fenofibrate 160 mg tablet 1 tab PO 1XD 02/27/22 02/27/22 lidocaine 5 % topical patch 1 patch topical DAILY #15 ea 02/27/22 (Lidoderm) losartan 100 mg tablet 1 tab PO 1XD 02/27/22 02/27/22 omeprazole 20 mg capsule,delayed 1 cap PO 1XD 02/27/22 02/27/22 release venlafaxine 37.5 mg 1 cap PO 1XD 02/27/22 02/27/22 capsule,extended release 24 hr Previous Rx's Medication Instructions Recorded cyclobenzaprine 5 mg tablet 5 mg PO ONCE PRN muscle spasm #5 02/27/22 tabs lidocaine 5 % topical patch 1 patch topical DAILY #15 ea 02/27/22 (Lidoderm) Allergies Allergy/AdvReac Type Severity Reaction Status Date / Time Environmental Allergy Mild Rhinitis Uncoded 02/27/22 14:20 General Stated Complaint: FlankPain AMRIT: 3 Review of Systems Narrative: Review of Systems Constitutional: negative Eyes: negative ENT: negative Cardiovascular: negative Respiratory: negative Gastrointestinal: Abdominal pain : negative Musculoskeletal: Back pain Skin: negative Neurologic: negative Psych: negative PFSH All Active Problems (Updated 02/27/22 @ 16:40 by Jeancarlos Field MD) Back pain (Acute) Neoplasm of unspecified behavior of bone, soft tissue, and skin (Acute) Post-menopausal bleeding (Acute 12/13/14) Medical History (Updated 02/27/22 @ 16:40 by Jeancarlos Field MD) GERD (gastroesophageal reflux disease) Menopausal symptoms Surgical History Ligation of fallopian tube S/P cholecystectomy Tonsillectomy and adenoidectomy Family History Maternal Aunt Personal history of malignant neoplasm ovarian, Maternal Aunt Personal history of malignant neoplasm breast cancer Social History Smoking/Tobacco Use Status: Former Tobacco Use Smoking risk assessment performed?: Yes Alcohol Intake: never Drug use: Never Substance use type: does not use Do you feel safe at home: Yes Do you feel safe in your relationship?: Yes Exam Narrative Exam Narrative: Physical Examination General: alert, awake, cooperative, resting comfortably, no acute distress HEENT: normocephalic, atraumatic; PERRL, EOM intact, conjunctiva normal; no nasal discharge; moist mucous membranes, oral and pharyngeal mucosa normal, tolerating secretions Neck: supple, trachea midline; full ROM Chest: normal to inspection Respiratory: normal respiratory effort, speaking in full sentences, clear to auscultation, no wheezing, rales or rhonchi Cardiac: regular rate, regular rhythm, S1S2 intact, no murmurs rubs or gallops GI: abdomen soft, non-tender, non-distended; no palpable mass or hepatosplenomegaly Back: No midline spinal tenderness Skin: no lesions, rashes or trauma appreciated Neuro: AAOx3, normal speech, moving all extremities Psych: Appropriate mood and affect Course Vital Signs Vital signs: Vital Signs Temperature 36.5 C 02/27/22 14:14 Pulse 63 02/27/22 14:14 Respiratory Rate 18 02/27/22 14:14 Blood Pressure 160/65 H 02/27/22 14:14 Pulse Oximetry 99 02/27/22 14:14 Temperature 36.5 C 02/27/22 14:14 Temperature Source Tympanic 02/27/22 14:14 Pulse 53 L 02/27/22 16:00 Pulse 61 02/27/22 16:00 Respiratory Rate 13 02/27/22 16:00 Respiratory Effort Non-Labored 02/27/22 14:29 Blood Pressure 154/69 H 02/27/22 16:00 Blood Pressure Mean 90 02/27/22 16:00 Blood Pressure Position Supine 02/27/22 14:14 Pulse Oximetry 97 02/27/22 16:00 Oxygen Delivery Method Room Air 02/27/22 14:14 Oxygen Flow Rate 0 02/27/22 14:14 Pain Level 8 02/27/22 14:29 Lab/Test Results Lab/Test Results: 02/27/22 15:22 Urine - Reflex from Ua Urine Culture - Pending Laboratory Tests Range/Units 02/27/22 02/27/22 02/27/22 15:13 15:13 15:22 WBC (4.4-10.8) 10^3/uL 5.64 RBC (3.93-5.22) 10^6/uL 3.95 Hgb (11.2-15.7) g/dL 12.4 Hct (36.0-46.0) % 36.3 MCV (80-95) fL 92 MCH (27.0-33.0) pg 31.4 MCHC (32.0-36.0) % 34.2 RDW (11.7-14.6) % 12.2 Plt Count (130-400) 10^3/uL 296 MPV (8.0-11.0) fL 10.5 Immature Gran % 0.4 Neutrophils % 46.8 Lymphocytes % 41.5 Monocytes % 9.0 Eosinophils % 1.2 Basophils % 1.1 Nucleated RBC % (0.0-0.3) % 0.0 Absolute Neutrophils (1.2-6.7) 10^3/uL 2.64 Absolute Lymphocytes (1.2-3.4) 10^3/uL 2.34 Absolute Monocytes (0.1-0.8) 10^3/uL 0.51 Absolute Eosinophils (0.0-0.7) 10^3/uL 0.07 Absolute Basophils (0.0-0.2) 10^3/uL 0.06 Sodium (136-145) mmol/L 138 Potassium (3.5-5.1) mmol/L 3.5 Chloride (98-107) mmol/L 106 Carbon Dioxide (21.0-32.0) mmol/L 22.6 Anion Gap (3-11) mmol/L 9.4 BUN (7-18) mg/dL 17 Creatinine (0.55-1.02) mg/dL 0.9 Estimated GFR/1.73 m2 (mL/min/1.73m2) >= 60.00 Glucose (74-106) mg/dL 119 H Calcium (8.5-10.1) mg/dL 9.7 Total Bilirubin (0.2-1.0) mg/dL 0.3 AST (15-37) U/L 24 ALT (14-59) U/L 54 Alkaline Phosphatase (46-116) U/L 41 L Troponin I (<or=60) ng/L < 50 Total Protein (6.4-8.2) g/dL 7.0 Albumin (3.4-5.0) g/dL 3.8 Lipase (73-393) U/L 159 Urine Color (Yellow) Yellow Urine Clarity (Clear) Clear Urine pH (5-8) 6.0 Ur Specific [place] (1.005-1.025) 1.010 Urine Protein (Negative) mg/dL Negative Urine Ketones (Negative) mg/dL Negative Urine Blood (Negative) Negative Urine Nitrite (Negative) Negative Urine Bilirubin (Negative) Negative Urine Urobilinogen (Up TO 0.2) EU/dL 0.2 Ur Leukocyte Esterase (Negative) Small H Urine RBC (0-2) HPF Negative Urine WBC (0-5) HPF 0-2 Ur Epithelial Cells (Negative) HPF Rare Urine Crystals (Negative) HPF Negative Urine Bacteria (Negative) HPF Negative Urine Casts (Negative) LPF Negative Urine Mucus (Negative) Negative Urine Other (Negative) Rare Renal Ur Culture Indicated? Yes Urine Glucose (Negative) mg/dL Negative
== END 2022-02-27 16:51 | disposition home or self-care (01) ==
PROVIDERS: Emergency Provider Emergency Medicine; PCP Physician Assistant Medical
DX: M54.50 Low back pain, unspecified (principal); R11.2 Nausea with vomiting, unspecified; R10.9 Unspecified abdominal pain
CPT/HCPCS: 80053; 83690; 93005; 96361; 96374; 96375; 99284; 74176; 81003; 81015; 84484; 85025; 87086; 93010; J1885; J2405

== ENCOUNTER 2022-02-27 14:41 | Outpatient (REF) | payer BC, SELFPAY ==
[2022-02-27 17:11] LABS: Bacteria Negative HPF (Negative); C & S Indicated? C&S Done As Ordered; Casts Negative LPF (Negative); Crystals Negative HPF (Negative); Epithelial Cells Negative HPF (Negative); Mucus Negative (Negative); Other Cells Negative (Negative); RBC 0-2 HPF (0-2); WBC 0-2 HPF (0-5)
== END 2022-02-27 14:42 | disposition home or self-care (01) ==
LOC: LBN 14:41
PROVIDERS: PCP Physician Assistant Medical; Visit Provider Physician Assistant Medical
DX: R10.9 Unspecified abdominal pain (principal)
CPT/HCPCS: 81015; 87086

== ENCOUNTER 2022-08-15 16:52 | Outpatient (REF) | payer BC, SELFPAY ==
[2022-08-15 16:01] LABS: Anion Gap 7.9 mmol/L (3-11); BUN 23 mg/dL (7-18); CO2 27.1 mmol/L (21.0-32.0); CREATININE 1.1 mg/dL (0.55-1.02); Calcium 10.1 mg/dL (8.5-10.1); Chloride 103 mmol/L (98-107); Estimated GFR 57.52 (mL/min/1.73m2); Glucose 102 mg/dL (74-106); Potassium 4.2 mmol/L (3.5-5.1); Sodium 138 mmol/L (136-145)
[2022-08-15 16:07] LABS: Hemoglobin A1C 5.7 % (<5.7)
[2022-08-15 16:16] LABS: Calculated LDL 151 mg/dL (<100); Cholesterol 215 mg/dL (<200); HDL Cholesterol 36 mg/dL (40-60); Triglyceride 140 mg/dL (<150)
== END 2022-08-15 16:53 | disposition home or self-care (01) ==
LOC: NCHCN 16:52
PROVIDERS: PCP Physician Assistant Medical; Visit Provider Nurse Practitioner Family
DX: I10 Essential (primary) hypertension (principal); R73.03 Prediabetes; E78.5 Hyperlipidemia, unspecified
CPT/HCPCS: 80048; 80061; 83036

== ENCOUNTER 2023-03-14 15:37 | Outpatient (REF) | payer BC, SELFPAY ==
[2023-03-14 15:35] LABS: Hemoglobin A1C 5.7 % (<5.7)
[2023-03-14 15:54] LABS: ALT 68 U/L (14-59); AST 25 U/L (15-37); Alkaline Phosphatase 57 U/L (46-116); Anion Gap 12.9 mmol/L (3-11); BUN 23 mg/dL (7-18); Bilirubin, Total 0.3 mg/dL (0.2-1.0); CO2 23.1 mmol/L (21.0-32.0); CREATININE 0.9 mg/dL (0.55-1.02); Calcium 9.6 mg/dL (8.5-10.1); Chloride 105 mmol/L (98-107); Cholesterol 220 mg/dL (<200); Estimated GFR 73.19 (mL/min/1.73m2); Glucose 151 mg/dL (74-106); HDL Cholesterol 26 mg/dL (40-60); Potassium 3.6 mmol/L (3.5-5.1); Sodium 141 mmol/L (136-145); Total Protein 7.1 g/dL (6.4-8.2); Triglyceride 477 mg/dL (<150)
[2023-03-14 16:06] LABS: Vitamin D 25 Total 24.3 ng/mL (30-100)
[2023-03-14 16:31] LABS: LDL CHOLESTEROL 136 mg/dL (<100)
== END 2023-03-14 15:38 | disposition home or self-care (01) ==
LOC: NCHCN 15:37
PROVIDERS: PCP Physician Assistant Medical; Visit Provider Physician Assistant Medical
DX: Z00.00 Encounter for general adult medical examination without abnormal findings (principal); I10 Essential (primary) hypertension; R79.89 Other specified abnormal findings of blood chemistry; E55.9 Vitamin D deficiency, unspecified
CPT/HCPCS: 80053; 80061; 82306; 83721; 87329; 83036

== ENCOUNTER 2023-05-20 20:20 | Outpatient (REF) | payer BC, SELFPAY | END 2023-05-20 20:21 | disposition home or self-care (01) | LOC: NCHCN 20:20 | PROVIDERS: PCP Physician Assistant Medical; Visit Provider Nurse Practitioner Family | DX: R10.31 Right lower quadrant pain (principal); R82.79 Other abnormal findings on microbiological examination of urine | CPT/HCPCS: 87086 ==

== ENCOUNTER → 2023-10-31 00:05 | Outpatient (CLI) | payer BC, SELFPAY ==
--- NOTE | 2023-10-31 | DI.MAMMO_ITS ---
Exam(s) MAMMO SCREENING EXAM: MAMMO SCREENING CLINICAL HISTORY: MAMMO YEARLY SCREENING Z12.31 TECHNIQUE: Bilateral full field digital CC and MLO mammographic images were obtained with 3D tomosyn thesis and utilizing computer aided detection (CAD). COMPARISON: Available for comparison. FINDINGS: Masses/Architectural Distortion: There is a nodule again seen in the lower inner quadrant of the left breast with coarse calcifications most suggestive of a degenerating fibroadenoma. No new masses or areas of architectural distortion are seen. Microcalcifications: No suspicious pleomorphic-type are seen. Skin Thickening/Nipple Retraction: None. IMPRESSION: 1. No significant interval change with no specific features of malignancy noted. 2. Unless there is more urgent need, screening mammography is recommended, as per [place] [employer] guidelines. BI-RADS Category 2 - Benign Findings Breast Density - Category C - Heterogeneously dense Breast density category C or D implies that the patient has dense breast tissue. Dense breast tissue is very common and is not abnormal but dense breast tissue can make it harder to find cancer on a ma mmogram. Also, dense breast tissue may increase their breast cancer risk. This information about the result of the mammogram report was provided to the patient to raise their awareness. Use this report when you speak with the patient about their risks for breast cancer, which includes their family hist ory. At that time, you may recommend for more screening tests (Ultrasound or MRI) as they might be us eful based on their risk. A negative radiographic report should not delay biopsy if a dominant or clinically suspicious mass is present. Up to ten percent of cancers are not identified on mammography. A negative report may reinforce clinical impression. Adenosis and dense breasts may obscure an underlying neoplasm. False positive reports average 6 to 10%. Patient will receive a letter notifying them of these results.
== END ==
PROVIDERS: PCP Physician Assistant Medical; Visit Provider Physician Assistant Medical
DX: Z12.31 Encounter for screening mammogram for malignant neoplasm of breast (principal)
CPT/HCPCS: 77063; 77067

== ENCOUNTER 2024-03-26 09:11 | Day surgery (SDC) | payer BC, SELFPAY ==
--- NOTE | 2024-03-25 17:05 | COLE_ITS ---
Date of service: 03/26/24 Time of Service: 10:41 Colonoscopy Report Date of procedure: 03/26/24 Pre-op diagnosis general: CRC screening Post-op diagnosis procedure note: other (X 2 polyps and internal hemorrhoids) Surgeon: Sheila Walls Anesthesia Type: General:No Airway Estimated blood loss (mL): 1 Pathology: other Complications: None Disposition: same day Prep: Miralax/Dulcolax Retraction Time: 16 Procedure Description: After informed consent was obtained, explaining risks of the procedure, including but not limits to: bleeding, infections, complications of anesthesia, perforations (which may require antibiotics and /or surgery and stay in the hospital), and abdominal pain/cramping. The patient was taken to the procedure room and placed in a left decubitous position. Monitors were applied and a time out was done. The patients name, date of , procedure, allergies to medications and metal in their body was reviewed. The patient was then sedated. Once sedated and comfortable a rectal exam was done. External exam was normal. Internal exam revealed a normal sphincter tone and no palpable masses. The previously lubricated Olympus scope was then introduced (see RN notes for scope number) and retrofelexed. Grade 1 x 2 columns and grade 2 x 1 column internal hemorrhoids were identified. The scope was then advanced to the cecum without difficulty. The TI and appendiceal orifice were identified. The scope was then slowly retracted over 16 minutes back into the rectum. Polyps: A flat, .5cm polyp was found at 90cm and in the rectum. This was removed with a cold biting forceps. All of the specimen was retrieved. This will be sent to pathology. There is no bleeding noted from the polypectomy site. . Diverticula: None. The mucosa is pink and healthy w/ a normal vascular pattern. The scope was removed, and the patient was woken up and taken back to Same day surgery in stable condition. The patient tolerated the procedure well and there were no immediate complications. Follow up: The patient should follow up in ~7 years, path pending, unless they develop changes in bowel habits or other new gastrointestinal complaints. [place] Bowel Prep [place] Bowel Prep Right Colon: 2 Left Colon: 2 Transverse Colon: 2 Total Score: 6
--- NOTE | 2024-03-25 17:05 | PDOC.DSDIS_ITS ---
Date of service: 03/26/24 Time of Service: 10:44 Discharge Plan Disposition Patient Disposition: Home Condition: Good Discharge Details Reason For Visit: Screening for colon cancer Attending Provider: Sheila Walls Primary Care Provider: Phyllis Daniels Home Meds and New Rx's Prescriptions: Continued acetaminophen 500 mg tablet 1,000 mg PO Q6H PRN ibuprofen [Advil] 200 mg tablet 200 mg PO Q6H venlafaxine 37.5 MG tablet 37.5 mg PO HS chlorthalidone 25 mg tablet 25 mg PO DAILY fexofenadine [Aller-Ease] 180 MG tablet 1 tab PO DAILY losartan 100 mg tablet 1 tab PO 1XD Patient Comments: TAKE ONE TABLET BY MOUTH EVERY DAY omeprazole 20 mg capsule,delayed release(DR/EC) 1 cap PO 1XD Patient Comments: TAKE ONE CAPSULE BY MOUTH EVERY DAY albuterol sulfate 90 mcg/actuation HFA aerosol inhaler 1 inh INHALATION PRN PRN Patient Comments: INHALE 2 PUFFS BY MOUTH EVERY 4-6 HOURS NEEDED fenofibrate 160 mg tablet 1 tab PO 1XD Patient Comments: TAKE ONE TABLET BY MOUTH EVERY DAY Discontinued bisacodyl [Dulcolax (bisacodyl)] 5 mg tablet,delayed release (DR/EC) 5 mg PO ONCE Qty: 4 0RF Rx Instructions: Take per colonoscopy instructions provided by ordering providers office polyethylene glycol 3350 17 gram/dose powder 17 g PO ONCE Qty: 238 0RF Rx Instructions: Take per colonoscopy instructions provided by ordering providers office Discharge Instructions Additional Instructions: . [facility] Colonoscopy Post- Op Instructions Instructions for Everyone who is given Anesthesia: For your safety, please do the following for the next twenty-four (24) hours: *Do Not operate a motor vehicle (car, truck, motorcycle, etc.) *Do Not drink alcoholic beverages or use any recreational drugs for the first 24 hours or while taking pain medications. The medications in your body may have a reaction that can be dangerous. *Do Not make any important decisions or sign any important papers. Findings: -Internal hemorrhoids x 1. If this becomes a problem for you, we could band this at your next colonoscopy. -2 small colon polyps Follow up: My office will send you a letter in 2 to 3 weeks time with the results of the pathology and when we want you to repeat the colonoscopy, probably in 7 years time. 1. No lifting over 20 pounds or strenuous activity for the first 24 hours after your procedure. After 24 hours there are no restrictions on your activity but you may feel fatigued for a few days. 2. After you arrive home you may have a light meal and return to your normal diet as you can tolerate it without feeling sick to your stomach. 3. You may have a bloated, gaseous feeling in your belly (abdomen) after a colonoscopy. Passing gas and belching will help. Walking or lying down on your left side with your knees flexed may relieve the discomfort. Call the office at [phone] (Office) or [phone] (Hospital) right away if you notice any of the following: a.Vomiting of blood or ?coffee ground stools?. b.Rectal bleeding 1Tbsp, blood clots or continuous bleeding. c.Severe belly (abdominal) pain. d.A hard distended belly (abdomen) and an inability to pass gas. 4. Please don?t expect to have a normal BM (bowel movement) for 2-3 days after your procedure. 5. If there are questions regarding the findings of your procedure, please contact your doctor 6. If you are unable to contact your doctor with a problem, contact the hospital at [phone]. 7. Continue all your regular medications unless directed otherwise. I understand the above instructions and have no questions. Signature of Patient or Adult Escort Name of Responsible Adult Escort Signature of Nurse Date/Time Stand Alone Forms: Anesthesia Discharge Luisana., Beatriz Quezada ([facility]) Activity:: See above Diet:: See above Discharge Orders Discharge Orders: Discharge Order (Routine); Ordered 03/26/24 Ordered By: Sheila Walls DS: Diagnosis Discharge Diagnosis (1) GERD (gastroesophageal reflux disease): (2) Hepatomegaly: (3) Osteoporosis: (4) Prediabetes: (5) Hyperlipidemia: (6) HTN (hypertension): (7) Bidya-3-aoosnsbmezb deficiency: (8) Screening for malignant neoplasm of colon performed: Status: Acute Asessment and Plan: The patient is seen and examined after their colonoscopy.? The patient has been able to pass gas.? They are not having abdominal pain.? They have been able to tolerate liquids and a snack.? They do not have any nausea or vomiting.? They are not having any chest pain or shortness of breath.??? They are not having any rectal bleeding. Their vital signs have been stable-see nursing notes. We discussed findings during their colonoscopy, and any biopsies that were done/polyps that were removed. The patient will be sent a letter with any biopsy results, and when to repeat the colonoscopy.-see discharge instructions. Patient was given explicit instructions to follow-up regarding colonoscopy-refer to discharge instructions.? We reviewed resumption of medications. Patient verbalized understanding and discharged in stable and satisfactory condition- See nursing notes. (9) Internal hemorrhoids without complication: Status: Acute (10) Colon polyp: Status: Acute
[2024-03-26 09:36] VITALS: BP 137/71; PULSE 54; RESP 16; TEMP 36.2; O2SAT 97
[2024-03-26] MEDS: Lactated Ringers 1,000 ML 80 ML IV (09:45)
--- NOTE | 2024-03-26 09:53 | ANES.PREOP_ITS ---
General Info Date of Service Date Performed: 03/26/24 Height: 5 ft 5 in Weight: 80.9 kg Body Mass Index (BMI): 29.7 Surgical Procedure: Operation Date: 03/26/24 09:50 Proposed Procedure Side Surgeon felecia Walls, DO Meds Allergies and Home Medications Allergies Allergy/AdvReac Type Severity Reaction Status Date / Time bupropion (From Zyban) AdvReac Unknown Pt. states Verified 03/26/24 09:33 it made me loopy lisinopril AdvReac Unknown Cough Verified 03/26/24 09:33 Environmental Allergy Mild Rhinitis Uncoded 03/26/24 09:33 Home Medication ?Medication ?Instructions ?Recorded fexofenadine 180 mg tablet 1 tab PO DAILY 06/24/13 (Aller-Ease) venlafaxine 37.5 mg tablet 37.5 mg PO HS 12/13/14 acetaminophen 500 mg tablet 1,000 mg PO Q6H PRN 07/15/18 ibuprofen 200 mg tablet (Advil) 200 mg PO Q6H 07/15/18 albuterol sulfate 90 mcg/actuation 1 inh inhalation PRN PRN 02/27/22 aerosol inhaler fenofibrate 160 mg tablet 1 tab PO 1XD 02/27/22 losartan 100 mg tablet 1 tab PO 1XD 02/27/22 omeprazole 20 mg capsule,delayed 1 cap PO 1XD 02/27/22 release chlorthalidone 25 mg tablet 25 mg PO DAILY 11/21/23 Current Visit Medications: Current Medications Generic Name Dose Route Start Last Admin Trade Name Freq PRN Reason Stop Dose Admin Hyoscyamine Sulfate 0.125 mg 03/26/24 04:29 Hyoscyamine 0.125 Mg Sl/Oral/Chew SL 04/25/24 04:28 DIRECTED PRN Ringer's Solution 1,000 mls @ 80 mls/hr 03/26/24 06:00 IV 04/24/24 23:59 INFUSION [facility] IV Miscellaneous Supplies 1 each 03/26/24 06:00 Iv Access IV 04/24/24 23:59 DIRECTED [facility] Ondansetron HCl 4 mg 03/26/24 04:29 Ondansetron 4 Mg/2 Ml Vial IVP 04/25/24 04:28 Q4H PRN PRN Nausea / Vomiting Sodium Chloride 0 ml 03/26/24 06:00 Normal Saline Flush 10 Ml Syr IV 04/24/24 23:59 PRN PRN Sodium Chloride 0 ml 03/26/24 06:00 Normal Saline 10 Ml Vial IJ 04/24/24 23:59 DIRECTED PRN Sterile Water 0 ml 03/26/24 06:00 Water,Injection,Sterile 10 Ml Vial IJ 04/24/24 23:59 DIRECTED PRN PFSH Active Problems Active Problems: Problem Status Onset Code Screening for malignant neoplasm of colon performed Acute Z12.11 Neoplasm of unspecified behavior of bone, soft tissue, and skin Acute D49.2 Post-menopausal bleeding Acute 12/13/14 N95.0 Medical History Medical History Hyperlipidemia HTN (hypertension) Prediabetes Hepatomegaly Slcxp-5-ndvfmlpwvzs deficiency Osteoporosis Right calf pain Abdominal pain Blepharoptosis GERD (gastroesophageal reflux disease) Menopausal symptoms Surgical History Surgical History History of colonoscopy (~06/2013) S/P blepharoplasty bilateral upper lid blepharoplasty ([facility]28/[facility]) S/P JEYSON 1991 History of cryosurgery cryosurgery for extensive vulvar warts - 2007 S/P cholecystectomy Ligation of fallopian tube Tonsillectomy and adenoidectomy Tobacco Smoking/Tobacco Use Status: Former Tobacco Use Alcohol Alcohol Intake: never Substance Use Substance use: Never Substance use type: does not use Vital Signs and Lab Results Vital Signs Most Recent Vital Signs in EMR: Most Recent Vital Signs Temp Pulse Resp BP Pulse Ox 36.2 C L 54 L 16 137/71 97 03/26/24 09:36 03/26/24 09:36 03/26/24 09:36 03/26/24 09:36 03/26/24 09:36 Lab Results Blood Type / Crossmatch: No Data to Display Complete Blood Count: No Data to Display Complete Metabolic Panel: No Data to Display Liver Function Panel: No Data to Display Coagulation Panel: No Data to Display Cardiac Panel: No Data to Display Arterial Blood Gas: No Data to Display Venous Blood Gas: No Data to Display Pancreas Panel: No Data to Display Thyroid Panel: No Data to Display Infectious Disease: No Data to Display Blood Cultures: No Data to Display Toxicology Panel: No Data to Display Anesthesia Assessment and Plan Anesthesia History Personal History: No History of Anesthesia Complications Family History: No Family History of Anesthesia Complications Exercise Tolerance Exercise Tolerance: Metabolic Equivalents>4 Pertinent Negatives Pertinent Negatives: No Symptoms of GERD Cardiac & Pulmonary Exam Cardiac Exam: Normal S1/S2 Heart Sounds Pulmonary Exam: Clear Bilateral Breath Sounds Implantable Cardiac Device Does patient have a Pacemaker or an ICD?: No Airway Exam Known Difficult Airway: No Mallampati Class: 2 Mouth Opening: Normal (> 3cm) Thyromental Distance: Greater than 3 cm Neck Range of Motion: Full ROM Neck Circumference: Normal Teeth Condition: Normal Dentition ASA Classification ASA Score: ASA 2 Emergency Case?: No NPO Status NPO Status: NPO Clears >2 hours, Solids >8 hours Anesthesia Plan Resuscitation Status: Full Code Anesthesia Technique: General Anesthesia Airway Planned: Natural Airway Monitors Used: Standard Monitors
[2024-03-26 09:54] VITALS: BMI 29.7
--- NOTE | 2024-03-26 10:10 | BOWEL_PTH ---
PATIENT: Afia Ernandez LOC: [facility] U#:[id number] AGE/SX: 63/F ROOM: RE03/26/[address]: Sheila Walls : 1960 BED: DIS: 03/26/2024 SPEC #: [id number] RECD: 03/26/24 12:35 STATUS: ALEXEY REQ #: [id number] CLARA: 03/26/24 10:[address]: Sheila Walls DEPT: Surgical Specimen RECD BY: Shahla Reid ENTERED: 03/26/24 12:36 SP TYPE: Bowel OTHR DR: Phyllis Daniels Tissues: 1 - BIOPSY BOWEL 2 - BIOPSY BOWEL Procedures: GROSS AND MICRO LEVEL 4 Comments: [id number]
[2024-03-26 10:34] VITALS: BP 132/71; PULSE 63; RESP 16; TEMP 36; O2SAT 96
--- NOTE | 2024-03-26 10:47 | W.ANESPOSTOP ---
Postoperative Evaluation Date, Time and Location Date Performed: 03/26/24 Time Performed: 10:47 Patient Location: Day Surgery Unit Vital Signs Most Recent Imported Vital Signs: Most Recent Vital Signs Temp Pulse Resp BP Pulse Ox 36.0 C L 63 16 132/71 96 03/26/24 10:34 03/26/24 10:34 03/26/24 10:34 03/26/24 10:34 03/26/24 10:34 Pain Score Most Recent Pain Score: Most Recent Pain Score Pain Level 0 03/26/24 10:34 Assessment Mental Status: Awake (Alert & Oriented to Patient Baseline) Airway and Respiratory Function: Patent airway with normal (patient baseline) respiratory exam Cardiovascular Function: Hemodynamically Stable Hydration Status: Adequately Hydrated Nausea & Vomiting: No Nausea or Vomiting Pain: Pt. Denies Any Pain Peripheral Nerve Block: Patient did not receive a nerve block
[2024-03-26 11:08] VITALS: BP 143/74; PULSE 56; RESP 14; TEMP 36.2; O2SAT 98
== END 2024-03-26 11:37 | disposition home or self-care (01) ==
LOC: SUR 09:11
PROVIDERS: PCP Physician Assistant Medical; Visit Provider Surgery
PROC: 0DJD8ZZ Inspection of Lower Intestinal Tract, Via Natural or Artificial Opening Endoscopic (ICD-10-PCS; CPT 45378; principal; 2024-03-26 09:45)
DX: K21.9 Gastro-esophageal reflux disease without esophagitis (principal); R16.0 Hepatomegaly, not elsewhere classified; M81.0 Age-related osteoporosis without current pathological fracture; R73.03 Prediabetes; E78.5 Hyperlipidemia, unspecified; I10 Essential (primary) hypertension; E88.01 Alpha-1-antitrypsin deficiency; Z12.11 Encounter for screening for malignant neoplasm of colon; K64.0 First degree hemorrhoids; D12.6 Benign neoplasm of colon, unspecified; K64.1 Second degree hemorrhoids; D12.8 Benign neoplasm of rectum
CPT/HCPCS: 45380; 88305; J2001; J2704

== ENCOUNTER 2024-05-12 19:23 | Outpatient (REF) | payer BC, SELFPAY ==
--- OUTSIDE RECORDS SUMMARY | 2024-05-12 19:26 | XMS_ITS | Continuity of Care Document ---
Author Organization [facility] Address [address] [place] [address] Care Team Providers Care Filler Block Inserter Remover Name Role Phone Juan AntoniogroverprestonPhyllis Primary Care Physician Encounter [facility] [id number] Date(s): 01/13/24 - 01/13/24 [facility] [address] [place] [address] Discharge Disposition: Home Allergies, Adverse Reactions, Alerts Substance Reaction Severity Status lisinopril Moderate Active Zyban Mild Active Assessment and Plan Future Appointments Medications chlorthalidone 25 mg oral tablet take half a tablet every morning, 0 Refill(s) Start Date: 08/13/23 Status: Ordered fenofibrate 160 mg oral tablet 160 mg = 1 tab, Oral, Daily, # 30 tab, 0 Refill(s) Start Date: 08/13/23 Status: Ordered fexofenadine 180 mg oral tablet 180 mg = 1 tab, Oral, Daily, # 30 tab, 0 Refill(s) Start Date: 08/13/23 Status: Ordered losartan 100 mg oral tablet 100 mg = 1 tab, Oral, Daily, # 30 tab, 0 Refill(s) Start Date: 08/13/23 Status: Ordered omeprazole 20 mg oral delayed release capsule 20 mg = 1 cap, Oral, Daily, # 30 cap, 0 Refill(s) Start Date: 08/13/23 Status: Ordered ProAir HFA 90 mcg/inh inhalation aerosol 2 puffs every 4-6 hours PRN, 0 Refill(s) Start Date: 08/13/23 Status: Ordered venlafaxine 37.5 mg oral capsule, extended release 37.5 mg = 1 cap, Oral, Daily, # 30 cap, 0 Refill(s) Start Date: 08/13/23 Status: Ordered zolpidem 5 mg oral tablet See Instructions, take 1-2 po night of sleep study if needed, # 2 tab, 0 Refill(s), [facility]acy: [id number], 167.64, cm, 01/08/24 9:47:00 EDT, Height, 80.74, kg, 01/08/24 9:48:00 EDT, Weight Dosing Start Date: 01/08/24 Status: Ordered Problem List Condition Confirmation Course Effective Dates Status H ealth Status Informant Abdominal pain Confirmed Active Rhinitis, allergic Confirmed Active Kguzz-3-qdrcujvsomu deficiency Confirmed Active Past use of tobacco Confirmed Active Hx of cholecystectomy Confirmed Active Hyperlipidemia Confirmed Active HTN (hypertension) Confirmed Active Hepatomegaly Confirmed Active Menopausal symptom Confirmed Active Osteoporosis Confirmed Active Right calf pain Confirmed Active Pain of left thumb Confirmed Active Prediabetes Confirmed Active Blepharoptosis Confirmed Active Restless leg syndrome Confirmed Active Snoring Confirmed Active Social History Social History Type Response Sex Female Patient Care team information Care Team Personnel Name: Phyllis Daniels PA-C Position: No Access Member Role: Primary Care Physician Address: Address: [facility] [address] [place] [address]- Care Team Related Persons Name: GLENNY RODRIGUEZ Address: Home [address]
--- OUTSIDE RECORDS SUMMARY | 2024-05-12 19:26 | XMS_ITS | Continuity of Care Document ---
Author Organization [facility] Address [address] [place] [address] Care Team Providers Care Retail Loss Prevention Specialist Name Role Phone Phyllis Daniels Gilbert Primary Care Physician Encounter [facility] [id number] Date(s): 01/08/24 - 01/08/24 [facility] [address] [place] [address] Discharge Disposition: Home Allergies, Adverse Reactions, Alerts [...] # 2 tab, 0 Refill(s), [facility]acy: [facility], 167.64, cm, 01/08/24 9:47:00 EDT, Height, 80.74, kg, 01/08/24 9:48:00 EDT, Weight Dosing Start Date: 01/08/24 Status: Ordered Problem List Condition Confirmation Course Effective Dates Status H ealth Status Informant Abdominal pain Confirmed Active Rhinitis, allergic Confirmed Active Rfefr-8-hekuhnouwot deficiency Confirmed Active Past use of tobacco [...] Member Role: Primary Care Physician Address: Address: [facility] [address] [place] [address]- Care Team Related Persons Name: GLENNY RODRIGUEZ Address: Home [address]
--- OUTSIDE RECORDS SUMMARY | 2024-05-12 19:27 | XMS_ITS | Clinical Summary ---
Author Organization [facility] Address [address] [place] [address] Care Team Providers Care Clothing Supervisor Name Role Phone Phyllis Daniels PA-C Primary Care Provider + Encounters Date Type Department Care Team Description 03/26/2024 Lab Requisition [facility] Pathology & Laboratory Medicine - [facility] [address] [place] [address] Sheila Walls, DO Polyp of colon; Other hemorrhoids; Encounter for screening for malignant neoplasm of colon; Gastro-esophageal reflux disease without esophagitis from Last 3 Months Social History Tobacco Use Types Packs/Day Years Used Date Smoking Tobacco: Never Assessed Interpersonal Safety Answer Date Record ed Physically Hurt Never 03/26/2020 Verbally Threaten Not on file 03/26/2020 Sex and Gender Information Value Date Recorded Sex Assigned at Not on file Gender Identity Not on file Sexual Orientation Not on file Plan of Treatment Health Maintenance Due Date Last Done Comments Hepatitis C Screen 1960 RSV Immunization ( o r 60+ Years) (1 - 1-dose 60+ series) 2022 COVID-19 Vaccine ( season) 2023 Procedures Procedure Name Priority Date/Time Associated Diagnosis Comments SURGICAL PATHOLOGY Today 03/26/2024 10 :10 EDT Polyp of colon Other hemorrhoids Encounter for screening for malignant neoplasm of colon Gastro-esophageal reflux disease without esophagitis from Last 3 Months Results * SURGICAL PATHOLOGY (03/26/2024 10:10 EDT) Note to Patient The following pathology results have been interpreted by your pathologist and may be available to you before your health provider has had the opportunity to review them. Please allow time for your provider to receive these results and explore management options, if applicable. 03/30/2024 9:51 [facility] Final Diagnosis A. COLON, 90 CM, POLYP, BIOPSY: - Colonic mucosa with no significant diagnostic abnormality. - Small submucosal lymphoid aggregate present. - No definite polyp identified. - Deeper sections x3 examined. B. RECTUM, POLYP, BIOPSY: - Hyperplastic polyp. 03/30/2024 9:51 [facility] Attestation There was significant resident/fellow involvement in the diagnostic evaluation of this case. By the signature below, the attending physician certifies that they have personally conducted a gross and/or microscopic examination of the described specimens and rendered or confirmed the above diagnosis. 03/30/2024 9:51 [facility] at 0951 Clinical History Screening colonoscopy; polyps and internal hemorrhoid 03/30/2024 9:51 [facility] Gross Description A. Received in formalin labelled with proper patient identification (initials S, S) and 1. Colon polyp @ 90 cm is a single yellow-arenas tissue (0.3 x 0.2 x 0.1 cm). Submitted intact in A1. B. Received in formalin labelled with proper patient identification (initials S, S) and 2. Rectal polyp is a single arenas-white tissue (0.15 x 0.1 x 0.1 cm). Submitted intact in B1. Please note the specimen may not survive processing. Stephanie oMtt 03/27/2024 12:05 03/30/2024 9:51 [facility] Resident/Osman w: Pito Wells DO 03/30/2024 9:51 [facility] Performing Lab [facility] 03/30/2024 9:51 [facility] Scanned Images 03/30/2024 9:51 [facility] Tissue SPECIMEN FROM RECTUM / Unknown 03/26/2024 10:10 EDT 03/26/2024 17:39 EDT Tissue specimen (specimen) SPECIMEN FROM RECTUM / Unknown 03/26/2024 10:10 EDT 03/26/2024 17:39 EDT Sheila Walls DO PATHOLOGY ORDERABLES [facility] [address] [place] [address] from Last 3 Months Care Teams Clothing Supervisor Relationship Specialty Start Date End Date Phyllis Daniels PA-C [address] [place] [id number] PCP - General 08/20/13
--- OUTSIDE RECORDS SUMMARY | 2024-05-12 19:27 | XMS_ITS | Encounter Summary ---
Author Organization [facility] [place] [address] Care Team Providers Care Marketing Analytics Analyst Name Role Phone Phyllis Daniels Primary Care Provider [phone] Reason for Visit * Consultation (Routine) - Specialty Diagnoses / Procedures Referred By Contac t Referred To Contact Gastroenterology Diagnoses Hepatomegaly, not elsewhere classified Hepatomegaly, Phyllis Daniels PA [address] [place] [address] [facility] [address] [place] [address] Referral ID Status Reason Start Date Expiration Date V isits Requested Visits Authorized [id number] Consult, Test & Treat Connection Center PCP Updated and/or Approved 06/19/2020 12/18/2020 6 6 Encounter Details Date Type Department Care Team (Latest Contact Info) Description 07/17/2020 2:00 PM EST TH Visit (TeleHealth) [place] [address] Liseth Sage MD [facility] [place] [address] NAFLD (nonalcoholic fatty liver disease) Social History Tobacco Use Types Packs/Day Years Used Date Smoking Tobacco: Former Smokeless Tobacco: Never Sex and Gender Information Value Date Recorded Sex Assigned at Not on file Gender Identity Female 07/10/2020 7:24 PM EST Sexual Orientation Not on file documented as of this encounter Progress Notes * Liseth Sage MD - 07/17/2020 2:00 PM EST GASTROENTEROLOGY TELEHEALTH PROGRAM - NEW PATIENT VISIT Chief Complaint: Afia Ernandez is a 59 y.o. patient referred for consultation by Dr. Daniels forhepatic steatosis. History of Present Illness: 59 y.o. female with hepatic steatosis. She had her gallbladder out in 2016, but her liver was not commented on. She was told in 2017 that she had fatty after an ultrasound. She does not drink any alcohol. She has history of obesity, hypertension, and hyperlipidemia. No blood sugar problems. No jaundice, ascites, or hepatic encephalopathy. Her son has A1AT and gets breathing treatments. She was tested at [facility], but is not sure the results. She is a former smoker, but stopped in 2008. CT 06/19/2020 for RUQ pain and diarrhea noted hepatic steatosis. Prior ultrasound 2016 noted hepatomegaly with steatosis. She changes how she takes her fenofibrate which helped her RUQ and diarrhea. Labs 02/2020 AST 29 ALT 63 Negative colonoscopy at [facility] 5 years ago. Review of systems: 14-point review of systems reviewed and negative except as above. Medications: Outpatient Medications Prior to Visit Medication Sig Dispense Refill ??? fenofibrate (TRIGLIDE) 160 mg Tablet Take 160 mg by mouth daily. ??? multivitamin Capsule Take 1 capsule by mouth daily. ??? fexofenadine (DEMOND) 180 mg Tablet TAKE ONE TABLET BY MOUTH EVERY DAY 4 ??? losartan (COZAAR) 25 mg Tablet TAKE ONE TABLET BY MOUTH EVERY DAY 3 ??? omeprazole (PRILOSEC) 20 mg Capsule, Delayed Release(E.C.) TAKE ONE CAPSULE BY MOUTH EVERY DAY 3 ??? venlafaxine (EFFEXOR-XR) 37.5 mg Capsule, Sust. Release 24 hr ??? metroNIDAZOLE (METROGEL) 0.75 % Gel Apply topically 2 times daily. No facility-administered medications prior to visit. Allergies: has No Known Allergies. Past Medical History: - Hypertension - Hyperlipidemia - Allergies - GERD Past Surgical History: - Cholecystectomy - Tonsillectomy - Tubal ligation Family History: Son with A1AT, brother and mother with diabetes, sister with epilepsy Social History: reports that she has quit smoking. She has never used smokeless tobacco. No alcohol Physical exam: No Physical Examination performed during this telemedicine visit Laboratory studies, imaging, and procedures (my review of prior records): See HPI. Reviewed in scan docs. Assessment/Plan: Ms. Ernandez is a 59 y.o. patient with hepatic steatosis on imaging. We discussed that she has risk factors for DUKE. Recommend diet and exercise with a goal weight loss of 10% of her total body weight. Recommend a Fibroscan to stage fibrosis. I will work on getting prior CBC and CMP from her PCP. I will also try to obtain her alpha-1 antitrypsin testing given the family history. Recommendations: - Follow up visit in clinic for Fibroscan and review of outside blood work. I spent 36 minutes face to face with the patient. 36 minutes were spent on counseling and discussion as of the above during this telemedicine visit. The patient was located in [place] at the time of their visit. Liseth Sage MD [facility] [place] [address] documented in this encounter Plan of Treatment Not on file documented as of this encounter Visit Diagnoses Diagnosis NAFLD (nonalcoholic fatty liver disease) Other chronic nonalcoholic liver disease documented in this encounter Care Teams Marketing Analytics Analyst Relationship Specialty Start Date End Date Phyllis Daniels PA [address] [place] [address] PCP - General Family Medicine 06/23/20 documented as of this encounter
--- OUTSIDE RECORDS SUMMARY | 2024-05-12 19:27 | XMS_ITS | Encounter Summary ---
Author Organization [facility] [place] [address] Care Team Providers Care Manager Of Financial Planning Name Role Phone Phyllis Daniels Primary Care Provider [phone]- [phone] Encounter Details Date Type Department Care Team (Latest Contact Info) Description 07/27/2020 9:30 AM EST Procedure visit [place] [address] Nicky Butcher CLEAN ROOM TECHNICIAN [facility] [place] [address] DUKE (nonalcoholic steatohepatitis) Social History Tobacco Use Types Packs/Day Years Used Date Smoking Tobacco: Former Smokeless Tobacco: Never Sex and Gender Information Value Date Recorded Sex Assigned at Not on file Gender Identity Female 07/10/2020 7:24 PM EST Sexual Orientation Not on file documented as of this encounter Procedure Notes * Nicky Butcher APRN - 07/27/2020 9:30 AM ESTAssociated Order(s): FIBROSCAN Procedure(s): FIBROSCAN Pre-Procedure Diagnose(s): DUKE (nonalcoholic steatohepatitis) [facility] Liver Fibrosis Assessment Report Indication: NAFLD, hepatomegaly Performed by: NICKY BUTCHER APRN Procedure: Vibration Controlled Transient Elastography (VCTE) or Fibroscan Guffey Protocol: Patient's identity, procedure and site were verified, confirmatory pause performed. Discussed procedure including risks and potential complications. Questions answered. Patient verbalizes understanding and wishes to proceed with Fibroscan assessment. Patient was placed in the supine position with right arm in maximum abduction to allow optimal exposure of right lateral abdomen. Patient was briefly assessed. Testing was performed in the mid-axillary location. 50Hz Shear Wave pulses were applied and the resulting Shear Wave and Propagation Speed was detected with a 3.5MHz ultrasonic signal, using the Fibroscan probe. Skin to liver capsule distance and liver parenchyma were accessed during the entire examination with the Fibroscan probe. Patient was instructed to breathe normally and abstain from sudden movements during the procedure. At least ten Sheer Waves were produced; individual measurements of each Shear Wave were calculated. Patient tolerated the procedure well with no complications. Fibroscan Results: Median kPa: 5.6 kPa Mean IQR: 11% (goal is <30 %) Number of valid measurements: 13 (at least 10 required) Number of invalid measurements: 3 Predicted fibrosis stage: F0 CAP (dB/m): 330 Estimated steatosis grade: 3/3 % hepatocytes affected: >66% Interpretation: Based on this Fibroscan result, history, clinical examination and review of laboratory and radiological data, this patient likely has stage 0-1 liver fibrosis and grade 3 steatosis affecting over 66%of hepatocytes. documented in this encounter Plan of Treatment Not on file documented as of this encounter Procedures Procedure Name Priority Date/Time Associated Diagnosis Comments [id number] Routine 07/27/2020 9:30 AM EST DUKE (nonalcoholic steatohepatitis) documented in this encounter Results * [id number] (07/27/2020 9:30 AM EST) Narrative Nicky Butcher APRN - 07/27/2020 9:30 AM EST Nicky Butcher APRN ? 07/27/2020 10:06 AM [facility] Liver Fibrosis Assessment Report Indication: ?? NAFLD, hepatomegaly Performed by: ??NICKY BUTCHER APRN Procedure: Vibration Controlled Transient Elastography (VCTE) or Fibroscan Guffey Protocol: Patient's identity, procedure and site were verified, confirmatory pause performed. Discussed procedure including risks and potential complications. Questions answered. Patient verbalizes understanding and wishes to proceed with Fibroscan assessment. Patient was placed in the supine position with right arm in maximum abduction to allow optimal exposure of right lateral abdomen. Patient was briefly assessed. Testing was performed in the mid-axillary location. 50Hz Shear Wave pulses were applied and the resulting Shear Wave and Propagation Speed was detected with a 3.5MHz ultrasonic signal, using the Fibroscan probe. Skin to liver capsule distance and liver parenchyma were accessed during the entire examination with the Fibroscan probe. Patient was instructed to breathe normally and abstain from sudden movements during the procedure. At least ten Sheer Waves were produced; individual measurements of each Shear Wave were calculated. Patient tolerated the procedure well with no complications. Fibroscan Results: Median kPa: 5.6 kPa Mean IQR: 11% (goal is <30 %) Number of valid measurements: 13 (at least 10 required) Number of invalid measurements: 3 Predicted fibrosis stage: F0 CAP (dB/m): 330 Estimated steatosis grade: 3/3 % hepatocytes affected: >66% Interpretation: Based on this Fibroscan result, history, clinical examination and review of laboratory and radiological data, this patient likely has stage 0-1 liver fibrosis and grade 3 steatosis affecting over 66% ??of hepatocytes. Nicky Butcher APRN PROCEDURE/MINOR LÓPEZ RGICAL ORDERABLES documented in this encounter Visit Diagnoses Diagnosis DUKE (nonalcoholic steatohepatitis) Other chronic nonalcoholic liver disease documented in this encounter Care Teams Manager Of Financial Planning Relationship Specialty Start Date End Date Phyllis Daniels PA [address] [place] [address] PCP - General Family Medicine 06/23/20 documented as of this encounter
--- OUTSIDE RECORDS SUMMARY | 2024-05-12 19:27 | XMS_ITS | Encounter Summary ---
Author Organization [facility] Address [address] [place] [address] Care Team Providers Care Linux Solaris Administrator Name Role Phone Sarika Daniels PA-C Primary Care Provider + Encounter Details Date Type Department Care Team (Late st Contact Info) Description 11/02/2013 Results Only [facility] Laboratory Services - [facility] ([facility]) [address] [place], [place] [address] Sarika Daniels PA-C [address] [place] [id number] Social History Tobacco Use Types Packs/Day Years Used Date Smoking Tobacco: Never Assessed Sex and Gender Information Value Date Recorded Sex Assigned at Not on file Gender Identity Not on file Sexual Orientation Not on file documented as of this encounter Plan of Treatment Not on file documented as of this encounter Procedures Procedure Name Priority Date/Time Associated Diagnosis Comments PAP TEST- RESULT ONLY Routine 11/02/2013 0:00 EDT documented in this encounter Results * PAP TEST- RESULT ONLY (11/02/2013 0:00 EDT) Pathology Report: CYTOPATHOLOGY REPORT Reports generated via electronic interface contain original data; however they are lacking the format of the original report. Caution should be taken when reading/interpreti ng unformatted reports. Name: ? AFIA RODRIGUEZ ? Accession #: ? [id number] ? : ? 1960 (Age: 53) ??F ?Collect Date: ? 11/02/2013 ? Location: ? [facility] ? Receive Date: ? 11/04/2013 ? Provider: SARIKA DUTTON Copy to: ? Final Report SPECIMEN ADEQUACY ? Satisfactory for Evaluation - transformation zone component present GENERAL CATEGORIZATION ? Negative for Intraepithelial Lesion or Malignancy ?? Last Menstrual Period: 1 Year ago Treatment History: LEEP: in 1991 none further Specimen/Source: ??Pap Test, Cervix/Endocervix, ThinPrep Imaging System with manual evaluation Document reviewed and electronically signed by: ? Salo Rodriges, CT(ASCP) ? Report ??Date: 11/09/2013 13:40 HPV with Pap Test ? Date Ordered: ? 11/09/2013 ? Status: ?? Signed Out ?Date Complete: ? 11/11/2013 ? By: ??System Interface ? Date Reported: ? 11/11/2013 ? Interpretation RESULT: Negative for HPV. No E6 or E7 mRNA is detected from HPV types 16,18,31,33,35, 39,45,51,52,56,58, 59,66, and 68 by technical support agent mediated amplification. Comments Document reviewed and electronically signed by: ? System Interface ? Report date: 11/11/2013 By the signature above, the attending physician certifies that he/she has personally conducted a gross and/or microscopic examination of the described specimens and rendered or confirmed the above diagnosis. End of Report [facility] 11/02/2013 11/04/2013 Sarika Daniels PA-C PATHOLOGY ORDERA [facility] [address] [place] [address] documented in this encounter Visit Diagnoses Not on filedocumented in this encounter Care Teams Linux Solaris Administrator Relationship Specialty Start Date End Date Sarika Daniels PA-C [address] [place] [phone] PCP - General 08/20/13 documented as of this encounter
--- OUTSIDE RECORDS SUMMARY | 2024-05-12 19:27 | XMS_ITS | Encounter Summary ---
Author Organization [facility] Address [address] [place] [address] Care Team Providers Care Wharf Hand Name Role Phone Unavailable Primary Care Provider Unavailabl e Encounter Details Date Type Department Care Team (Late st Contact Info) Description 10/30/2011 Results Only [facility] Laboratory Services - [facility] ([facility] [address] [place] [address] Helga Wilks MD [address] [place] [address] [place] [address] Social History Tobacco Use Types Packs/Day Years Used Date Smoking Tobacco: Never Assessed Sex and Gender Information Value Date Recorded Sex Assigned at Not on file Gender Identity Not on file Sexual Orientation Not on file documented as of this encounter Plan of Treatment Not on file documented as of this encounter Procedures Procedure Name Priority Date/Time Associated Diagnosis Comments SURGICAL PATHOLOGY Routine 10/30/2011 0:00 EST documented in this encounter Results * SURGICAL PATHOLOGY (10/30/2011 0:00 EST) Pathology Report: SURGICAL PATHOLOGY REPORT Reports generated via electronic interface contain original data; however they are lacking the format of the original report. Caution should be taken when reading/interpreti ng unformatted reports. Name: ? AFIA RODRIGUEZ ? Accession #: ? [id number] ? : ? 1960 (Age: 51) ??F ? Collect Date: ? 10/30/2011 ? Location: ? [facility] ? Receive Date: ? 10/31/2011 ? Provider: HELGA WILKS MD Copy to: ELIE ARANGO MD ? Final Pathologic Diagnosis: ? Endometrium, biopsy: 1. ?Fragments of weakly proliferative endometrium with focal tubal metaplasia. 2. ? No cytologic atypia identified. ?? Document reviewed and electronically signed by: AFIA THAKUR MD Report ??Date: 11/04/2011 15:41 By the signature above, the attending physician certifies that he/she has personally conducted a gross and/or microscopic examination of the described specimens and rendered or confirmed the above diagnosis. Specimen(s) Received: ? Endometrial bx Clinical History: ? DUB; short term Prempro use; LMP: 10/20/11; control BTL Gross Description: ? Received in formalin labelled Afia Rodriguez and endometrial biopsy is a 1.0 x 1.0 x 0.2 cm aggregate of red-brown, hemorrhagic soft tissue fragments. The specimen is filtered and entirely submitted in a single cassette. ??(Jose Carlos Palma)/[facility] End of Report [facility] 10/30/2011 10/31/2011 8:3 9 EST Helga Wilks MD PATHOLOGY ORDERABLES [facility] [address] [place] [address] documented in this encounter Visit Diagnoses Not on filedocumented in this encounter
--- OUTSIDE RECORDS SUMMARY | 2024-05-12 19:27 | XMS_ITS | Encounter Summary ---
Author Organization [facility] Address [address] [place] [address] Care Team Providers Care Webmaster Name Role Phone Liseth Valdez MD Primary Care Provider [phone] Encounter Details Date Type Department Care Team (Latest Contact Info) Description 08/11/2013 14:44 EST - 08/11/2013 23:59 EST Hospital Encounter [address] [address] Unknown, Provider, Discharge Disposition: Home or Self Care Social History Tobacco Use Types Packs/Day Years Used Date Smoking Tobacco: Never Assessed Sex and Gender Information Value Date Recorded Sex Assigned at Not on file Gender Identity Not on file Sexual Orientation Not on file documented as of this encounter Discharge Disposition Disposition Code Departure Means Destination Home or Self Long-Term documented in this encounter Plan of Treatment Not on file documented as of this encounter Visit Diagnoses Not on filedocumented in this encounter Care Teams Webmaster Relationship Specialty Start Date End Date Liseth Valdez MD [address] [place] [address] PCP - General 06/28/13 08/19/13 documented as of this encounter
--- OUTSIDE RECORDS SUMMARY | 2024-05-12 19:27 | XMS_ITS | Encounter Summary ---
Author Organization [facility] Address [address] [place] [address] Care Team Providers Care Superintendent Horticulture Name Role Phone Unavailable Primary Care Provider Unavailabl e Encounter Details Date Type Department Care Team (Late st Contact Info) Description 05/06/2003 Results Only [facility] [address] [place] [address] Audrey Verde, [facility] [address] [facility] [place] [address] Social History Tobacco Use Types Packs/Day Years Used Date Smoking Tobacco: Never Assessed Sex and Gender Information Value Date Recorded Sex Assigned at Not on file Gender Identity Not on file Sexual Orientation Not on file documented as of this encounter Plan of Treatment Not on file documented as of this encounter Procedures Procedure Name Priority Date/Time Associated Diagnosis Comments CYTOPATHOLOGY Routine 05/06/2003 0:00 EDT documented in this encounter Results * CYTOPATHOLOGY (05/06/2003 0:00 EDT) Pathology Report: CYTOPATHOLOGY REPORT Reports generated via electronic interface contain original data; however they are lacking the format of the original report. Caution should be taken when reading/interpreti ng unformatted reports. Name: ? AFIA RODRIGUEZ ? Accession #: ? [id number] : ? 1960 (Age: 42) ??F ?Collect Date: ? 05/06/2003 Location: ? [facility] ? Receive Date: ? 05/10/2003 Provider: ?AUDREY VERDE BREAKER OFF Copy to: ? Specimen/Source: ?ThinPrep Pap Test, Cervix/Endocervix Last Menstrual Period: ? 04/23/03 Previous Gynecologic Pathology: ? Yes: atypical pap Treatment History: ? Cone biopsy: 1993 Other: ? Additional clinical information: pap negative HPVA - HPV testing requested if ASC-US on the current ThinPrep Pap test. ? SPECIMEN ADEQUACY ? Satisfactory for Evaluation - transformation zone component present GENERAL CATEGORIZATION ? Negative for Intraepithelial Lesion or Malignancy ? Document reviewed and electronically signed by: ? HENRRY Conklin(ASCP) ? Report Date: ??05/12/2003 09:01 End of Report [facility] 05/06/2003 05/10/2003 Audrey Verde BREAKER OFF PATHOLOGY ORDERABLES [facility] [address] [place] [address] documented in this encounter Visit Diagnoses Not on filedocumented in this encounter
--- OUTSIDE RECORDS SUMMARY | 2024-05-12 19:27 | XMS_ITS | Encounter Summary ---
Author Organization [facility] Address [address] [place] [address] Care Team Providers Care Planning Assistant Name Role Phone Juan AntoniogroverSarika johnston Gilbert SINCLAIR Primary Care Provider + Encounter Details Date Type Department Care Team (Late st Contact Info) Description 12/13/[address] [facility] [phone] Helga Wilks MD [address] [place] [address] [place] [address] Social History Tobacco Use Types Packs/Day Years Used Date Smoking Tobacco: Never Assessed Sex and Gender Information Value Date Recorded Sex Assigned at Not on file Gender Identity Not on file Sexual Orientation Not on file documented as of this encounter Plan of Treatment Not on file documented as of this encounter Procedures Procedure Name Priority Date/Time Associated Diagnosis Comments SURGICAL PATHOLOGY Routine 12/13/2014 8:40 EDT documented in this encounter Results * SURGICAL PATHOLOGY (12/13/2014 8:40 EDT) Pathology Report: SURGICAL PATHOLOGY REPORT Reports generated via electronic interface contain original data; however they are lacking the format of the original report. Caution should be taken when reading/interpret ing unformatted reports. Name: ? AFIA RODRIGUEZ ? Accession #: ? [id number] ? : ? 1960 (Age: 54) ??F ? Collect Date: ? 12/13/2014 ? Location: ? [facility] ? Receive Date: ? 12/13/2014 ? Provider: HELGA WILKS MD Copy to: SARIKA DUTTON ? Final Pathologic Diagnosis: ENDOMETRIUM, BIOPSY: - ??Superficial strips of inactive endometrium with tubal metaplasia. - ??Fragments of benign endocervical tissue and squamous mucosa. Document reviewed and electronically signed by: DIPIKA MATHEWS MD Report ??Date: 12/19/2014 13:44 By the signature above, the attending physician certifies that he/she has personally conducted a gross and/or microscopic examination of the described specimens and rendered or confirmed the above diagnosis. Specimen(s) Received: Endometrial bx Clinical History: PMB Gross Description: ? Received in formalin labelled with proper patient identification (initials S, S) and endometrial biopsy is an aggregate of red-brown, tissue fragments (1.0 x 0.3 x 0.3 cm). Submitted in toto in block 1. Angela Franks 12/14/2014 10:17 AM End of Report [facility] 12/13/2014 8:40 EDT 12/13/2014 8:40 EDT Helga Wilks MD PATHOLOGY ORDERABLES [facility] [address] [place] [address] documented in this encounter Visit Diagnoses Not on filedocumented in this encounter Care Teams Planning Assistant Relationship Specialty Start Date End Date Sarika Daniels PA-C [address] [place] [phone] PCP - General 08/20/13 documented as of this encounter
--- OUTSIDE RECORDS SUMMARY | 2024-05-12 19:27 | XMS_ITS | Encounter Summary ---
[place] [address] Care Team Providers Care Line Up Machine Operator Name Role Phone Phyllis Daniels Primary Care Provider +1- [phone] Reason for Visit * Reason Comments Skin Lesion Encounter Details Date Type Department Care Team (Late st Contact Info) Description 02/28/2015 3:30 PM EDT Office Visit Dermatology at [place] [address] [facility] [place] [address] Clay Golden MD [address], [place] Anisha DERMATOLOGY [place], [place] [address] Acne vulgaris; Inflamed acrochordon Discharge Disposition: Home Social History Tobacco Use Types Packs/Day Years Used Date Smoking Tobacco: Former Sex and Gender Information Value Date Recorded Sex Assigned at Not on file Gender Identity Female 07/10/2020 7:24 PM EST Sexual Orientation Not on file documented as of this encounter Patient Instructions * Patient Instructions* Adenike Catalan LPN - 02/28/2015 3:50 PM EDT Images from the original note were not included. [facility] Skin Tag Removal: After Your Visit Your Care Instructions Skin tags are small lumps of fleshy brown, arenas, or pink skin. They are usually raised or hang from the skin on a small stalk. They often grow on the eyelids, neck, armpit, and groin. Skin tags are not moles and usually do not turn into cancer. You are more likely to get skin tags if you are overweight. They also tend to run in families. Skin tags may be removed if they bother you. Your doctor can remove an unwanted skin tag by simply cutting it off. However, new skin tags often form. Follow-up care is a tineo part of your treatment and safety. Be sure to make and go to all appointments, and call your doctor if you are having problems. It's also a good idea to know your test resultsand keep a list of the medicines you take. How can you care for yourself at home? ?? If clothing irritates a skin tag, cover it with a bandage to prevent rubbing and bleeding. ?? If you have a skin tag removed, clean the area with soap and water two times a day unless your doctor gives you different instructions. Don't use hydrogen peroxide or alcohol, which can slow healing. ?? You may cover the wound with a thin layer of petroleum jelly, such as Vaseline, and a nonstick bandage. ?? Check all the skin on your body once a month for skin growths or other changes, such as color and feel of the skin. ?? physical medicine teacher front of a full-length mirror. Look carefully at the front and back of your body. Then look at your right and left sides with your arms raised. ?? Bend your elbows and look carefully at your forearms, the back of your upper arms, and your palms. ?? Look at your feet, the soles of your feet, and the spaces between your toes. ?? Use a hand mirror to look at the back of your legs, the back of your neck, and your back, rear end (buttocks), and genital area. Part the hair on your head to look at your scalp. ?? If you see a change in a skin growth, contact your doctor. Look for: ?? A mole that bleeds. ?? A fast-growing mole. ?? A scaly or crusted growth on the skin. ?? A sore that will not heal. When should you call for help? Call your doctor now or seek immediate medical care if: ?? You have a bump that itches and bleeds. ?? You have an area of normal skin that suddenly changes in shape, size, or how it looks. ?? You have signs of infection such as: ?? Pain, warmth, or swelling in your skin. ?? Red streaks near a wound in your skin. ?? Pus coming from a wound in your skin. ?? A fever not due to the flu or other illness. Watch closely for changes in your health, and be sure to contact your doctor if: ?? You do not get better as expected. Where can you learn more? Visit our health information library at [email or web address] You can also view health information on [employer], your personal patient account. Log in or sign up today. Enter B457 in the search box to learn more about Skin Tag Removal: After Your Visit. ?? [phone] [employer]. Care instructions adapted under license by [facility]. This care instruction is for use with your licensed healthcare professional. If you have questions about a medical condition or this instruction, always ask your healthcare professional. [employer] disclaims any warranty or liability for your use of this information. Content Version: 10.4.633338; Current as of: November 03, 2013 documented in this encounter Progress Notes * Clay Golden MD - 02/28/2015 4:08 PM EDT Problem: Followup for skin tag removal. Afia follows up and again presents with numerous tags that she would like to have removed around her neck. She also has some in the underarms that we will take care of at another visit. Her significant open and closed-comedonal acne is responding to the therapy as outlined in the 01/10/2015 note. Physical examination again today confirms the presence of skin tags about her neck. Assessment and Plan: 1. Tags. a. After obtaining informed patient consent, the sites were anesthetized and removed with electrodesiccation. b. Wound care instructions and supplies given. c. Return to clinic in another month for treatment of axillary sites. 2. Significant open and closed comedonal acne vulgaris. a. Continue therapy, as previously outlined. documented in this encounter Plan of Treatment Not on file documented as of this encounter Visit Diagnoses Diagnosis Acne vulgaris Other acne Inflamed acrochordon Unspecified hypertrophic and atrophic condition of skin documented in this encounter Care Teams Line Up Machine Operator Relationship Specialty Start Date End Date Phyllis Daniels PA [address] [place] [address] PCP - General 10/25/14 04/11/20 documented as of this encounter
--- OUTSIDE RECORDS SUMMARY | 2024-05-12 19:27 | XMS_ITS | Encounter Summary ---
Author Organization [facility] Address [address] [place] [address] Care Team Providers Care Environmental Service Aide Name Role Phone Unavailable Primary Care Provider Unavailabl e Encounter Details Date Type Department Care Team (Late st Contact Info) Description 08/03/2009 Orders Only [facility] [phone] Lior Bojorquez MD [address] [place] [address] Social History Tobacco Use Types Packs/Day Years Used Date Smoking Tobacco: Never Assessed Sex and Gender Information Value Date Recorded Sex Assigned at Not on file Gender Identity Not on file Sexual Orientation Not on file documented as of this encounter Plan of Treatment Not on file documented as of this encounter Procedures Procedure Name Priority Date/Time Associated Diagnosis Comments CYTOPATHOLOGY Routine 08/03/2009 0:00 EST documented in this encounter Results * CYTOPATHOLOGY (08/03/2009 0:00 EST) Pathology Report: CYTOPATHOLOGY REPORT ? Reports generated via electronic interface contain original data; ? however they are lacking the format of the original report. ? Caution should be taken when reading/interpreti ng unformatted reports. ? Name: ? AFIA RODRIGUEZ ? Accession #: ? [id number] ? : ? 1960 (Age: 49) ??F ?Collect Date: ? 08/03/2009 ? Location: ? [facility] ? Receive Date: ? 08/07/2009 ? Provider: ?LIOR BOJORQUEZ MD ? Copy to: ? Specimen/Source: ?Pap Test, Cervix/Endocervix, ThinPrep Imaging System ? with manual evaluation ? Last Menstrual Period: ? 11/23/09 ? Hormonal/Contracep tive Status: ? Tubal ligation: bilateral ? SPECIMEN ADEQUACY ? Satisfactory for Evaluation ? - transformation zone component present ? GENERAL CATEGORIZATION ? Negative for Intraepithelial Lesion or Malignancy ? INTERPRETATION ? Reactive cellular changes associated with inflammation present (includes ?? repair). ? Document reviewed and electronically signed by: ? Anabela C. Bradley, MD ? Report Date: ??08/10/2009 18:11 ? End of Report ? [facility] 08/03/2009 08/07/2009 Lior Bojorquez MD PATHOLOGY ORDERABLES [facility] [address] [place] [address] documented in this encounter Visit Diagnoses Not on filedocumented in this encounter
--- OUTSIDE RECORDS SUMMARY | 2024-05-12 19:27 | XMS_ITS | Encounter Summary ---
Author Organization [facility] [place] [place] [address] Care Team Providers Care Snack Steward Name Role Phone Phyllis Daniels Primary Care Provider +1- [phone] Reason for Referral * Consultation (Routine) - Closed Specialty Diagnoses / Procedures Referred By Contac t Referred To Contact Gastroenterology Diagnoses DUKE (nonalcoholic steatohepatitis) Liseth Sage MD [facility] [place] [address] [facility] [address] [place] [address] Referral ID Status Reason Start Date Expiration Date V isits Requested Visits Authorized [id number] Closed Consult, Test & Treat 08/07/2020 08/07/2021 1 1 Encounter Details Date Type Department Care Team (Latest Contact Info) Description 08/07/2020 3:00 PM EST TH Visit (TeleHealth) [place] [address] Liseth Sage MD [facility] [address] DUKE (nonalcoholic steatohepatitis) Social History Tobacco Use Types Packs/Day Years Used Date Smoking Tobacco: Former Smokeless Tobacco: Never Sex and Gender Information Value Date Recorded Sex Assigned at Not on file Gender Identity Female 07/10/2020 7:24 PM EST Sexual Orientation Not on file documented as of this encounter Progress Notes * Liseth Sage MD - 08/07/2020 3:00 PM EST GASTROENTEROLOGY TELEMEDICINE PROGRAM - ESTABLISHED PATIENT VISIT Chief Complaint: Afia Ernandez is a 60 y.o. patient of Phyllis Daniels PA here for follow-upof hepatic steatosis. Detailed history: Hepatic steatosis She had her gallbladder out in 2016, but her liver was not commented on. She was told in 2017 that she had fatty after an ultrasound. She does not drink any alcohol. She has history of obesity, hypertension, and hyperlipidemia. No blood sugar problems. No jaundice, ascites, or hepatic encephalopathy. Her son has A1AT and gets breathing treatments. She was tested at [facility], but is not sure the results. She is a former smoker, but stopped in 2008. ?? CT 06/19/2020 for RUQ pain and diarrhea noted hepatic steatosis. Prior ultrasound 2016 noted hepatomegaly with steatosis. She changed how she takes her fenofibrate which helped her RUQ and diarrhea. ?? Labs 02/202007/24/20 AST 29 15 ALT 63 23 Fibroscan Results 07/27/2020: Median kPa: 5.6 kPa Mean IQR: 11% (goal is <30 %) Number of valid measurements: 13 (at least 10 required) Number of invalid measurements: 3 Predicted fibrosis stage: F0 CAP (dB/m): 330 Estimated steatosis grade: 3/3 % hepatocytes affected: >66% Interval history: She reports that her pain is improve with diet changes. She has been eating more vegetable with less pasta and potato. This week she has been eating cabbage. She has cut out snacking, especial high sugar and high fat. She has lost one pound. Fibroscan was normal. Review of systems: 14-point review of systems [...] 37.5 mg Capsule, Sust. Release 24 hr No facility-administered medications prior to visit. Allergies: [...] procedures (my review of prior records): See HPI Assessment/Plan: Ms. Ernandez is a 60 y.o. patient with NAFLD. Fibroscan was normal. Liver enzymes have normalized with diet changes. Will arrange visit with rolling mill plugger to discuss weight loss. Follow up visit in 1 year with labs. Recommendations: - Labs and visit in 12 months - Cooker Casing to discuss weight loss I spent 17 minutes face to face with the patient. 17 minutes were spent on counseling and discussion as of the above during this telemedicine visit. The patient was located in [place] at the time of their visit. Liseth Sage [place] [facility] [place] [id number] documented in this encounter Plan of Treatment Scheduled Referrals Name Type Priority Associated Diagnoses Order Schedule Referral to Gastroenterology Outpatient Referral Routine DUKE (nonalcoholic steatohepatitis) Ordered: 08/07/2020 documented as of this encounter Visit Diagnoses Diagnosis DUKE (nonalcoholic steatohepatitis) Other chronic nonalcoholic liver disease documented in this encounter Care Teams Snack Steward Relationship Specialty Start Date End Date Phyllis Daniels PA [address] [place] [address] PCP - General Family Medicine 06/23/20 documented as of this encounter
--- OUTSIDE RECORDS SUMMARY | 2024-05-12 19:27 | XMS_ITS | Encounter Summary ---
Author Organization [facility] Address [address] [place] [address] Care Team Providers Care District Sales Leader Name Role Phone Phyllis Daniels PA-C Primary Care Provider + Encounter Details Date Type Department Care Team (Late st Contact Info) Description 03/26/2024 Lab Requisition [facility] - [address] [address] Sheila Walls, DO [address] [place], [place] [id number] Polyp of colon; Other hemorrhoids; Encounter for screening for malignant neoplasm of colon; Gastro-esophageal reflux disease without esophagitis Social History Tobacco Use Types Packs/Day Years [...] of colon Gastro-esophageal reflux disease without esophagitis documented in this encounter Results * SURGICAL PATHOLOGY (03/26/2024 10:10 EDT) Note to Patient The following pathology results have been interpreted by your pathologist and may be available to you before your health provider has had the opportunity to review them. Please allow time for your provider to receive these results and explore management options, if applicable. 03/30/2024 9:51 [facility] Final Diagnosis A. COLON, 90 CM, POLYP, BIOPSY: - Colonic mucosa with no significant diagnostic abnormality. - Small submucosal lymphoid aggregate present. - No definite polyp identified. - Deeper sections x3 examined. B. RECTUM, POLYP, BIOPSY: - Hyperplastic polyp. 03/30/2024 9:51 [facility] Attestation There was significant resident/fellow involvement in the diagnostic evaluation of this case. By the signature below, the attending physician certifies that they have personally conducted a gross and/or microscopic examination of the described specimens and rendered or confirmed the above diagnosis. 03/30/2024 9:51 [facility] at 0951 Clinical History Screening colonoscopy; polyps and internal hemorrhoid 03/30/2024 9:51 [facility] Gross Description A. Received in [...] the specimen may not survive processing. Stephanie Mott 03/27/2024 12:05 03/30/2024 9:51 [facility] Resident/Osman w: Pito Wells DO 03/30/2024 9:51 [facility] Performing Lab [facility] 03/30/2024 9:51 [facility] Scanned Images 03/30/2024 9:51 [facility] Tissue SPECIMEN FROM RECTUM / Unknown 03/26/2024 10:10 EDT 03/26/2024 17:39 EDT Tissue specimen (specimen) SPECIMEN FROM RECTUM / Unknown 03/26/2024 10:10 EDT 03/26/2024 17:39 EDT Sheila Walls DO PATHOLOGY ORDERABLES [facility] [address] [place], [place] [id number] documented in this encounter Visit Diagnoses Diagnosis Polyp of colon Benign neoplasm of colon Other hemorrhoids Encounter for screening for malignant neoplasm of colon Special screening for malignant neoplasms, colon Gastro-esophageal reflux disease without esophagitis Esophageal reflux documented in this encounter Care Teams District Sales Leader Relationship Specialty Start Date End Date Phyllis Daniels PA-C [address] [place] [address] PCP - General 08/20/13 documented as of this encounter
--- OUTSIDE RECORDS SUMMARY | 2024-05-12 19:27 | XMS_ITS | Encounter Summary ---
[place] [address] Care Team Providers Care Lift Driver Name Role Phone Phyllis Daniels Primary Care Provider +1- [phone] Reason for Visit * Reason Comments Skin Lesion Encounter Details Date Type Department Care Team (Late st Contact Info) Description 05/04/2015 3:30 PM EDT Office Visit Dermatology at [address] [place] [address] Clay Golden MD [address] [facility] [place] [address] Acrochordon; Nevus Discharge Disposition: Home Social History Tobacco Use Types Packs/Day Years Used Date Smoking Tobacco: Former Sex and Gender Information Value Date Recorded Sex Assigned at Not on file Gender Identity Female 07/10/2020 7:24 PM EST Sexual Orientation Not on file documented as of this encounter Progress Notes * Clay Golden MD - 05/04/2015 4:14 PM EDT Problem: Followup for additional skin tag removal. Afia follows up and has done well after the first round of acrochordon removal from around her neck. She now has some additional sites under the arms she would like to have treated, as well as an irritated nevus on the right volar forearm. Physical examination confirms the presence of about 10 tags present between both axillary vaults; and a soft, fleshy, 5-mm nevus on the right volar forearm. Assessment and Plan: 1. Tags. a. After obtaining informed patient consent, the sites were anesthetized and removed with electrodesiccation. b. Wound care instructions and supplies given. 2. Significant open- and closed-comedonal acne vulgaris. a. Continue tretinoin 0.05% cream, which she has been using since December 2014. 3. Irritated nevus, right volar forearm. a. After obtaining informed patient consent, the site was anesthetized and removed with shave biopsy. b. Base was lightly electrodesiccated. c. Triple antibiotic ointment and Band-Aid placed. d. Return to clinic now will be on a p.r.n. basis for new lesions/concerns. COPY: Phyllis Magana P.A.-C. documented in this encounter Plan of Treatment Not on file documented as of this encounter Visit Diagnoses Diagnosis Acrochordon Unspecified hypertrophic and atrophic condition of skin Nevus Benign neoplasm of skin, site unspecified documented in this encounter Care Teams Lift Driver Relationship Specialty Start Date End Date Phyllis Daniels PA [address] [place] [address] PCP - General 10/25/14 04/11/20 documented as of this encounter
--- OUTSIDE RECORDS SUMMARY | 2024-05-12 19:27 | XMS_ITS | Encounter Summary ---
Author Organization [facility] [place] [address] Care Team Providers Care Rn Disease Management Name Role Phone Phyllis Daniels Primary Care Provider +1- [phone] Reason for Visit * Reason Comments Follow-up Encounter Details Date Type Department Care Team (Late st Contact Info) Description 05/23/2016 11:30 AM EDT Office Visit Dermatology at [place] [address] [facility] [place] [address] Clay Golden MD [address] [facility] [place] [address] Seborrheic keratosis, inflamed Social History Tobacco Use Types Packs/Day Years Used Date Smoking Tobacco: Former Sex and Gender Information Value Date Recorded Sex Assigned at Not on file Gender Identity Female 07/10/2020 7:24 PM EST Sexual Orientation Not on file documented as of this encounter Progress Notes * Clay Golden MD - 05/23/2016 11:30 AM EDT Problem is irritated skin tags. Afia follows up after last being seen in August. She noticed some new irritated tags. Physical examination revealed a pleasant 55-year-old woman who has a number of waxy stuck-on appearing early seborrheic keratoses, one on the right upper back, on the volar forearms, and one on the left anterior upper chest. It is above her left breast. She also does have some small tags developing circumferentially along the base of her neck. ASSESSMENT AND PLAN: Irritated tags/irritated seborrheic keratosis. a. Today, sites were treated with LN2 x2 lightly. b. Patient tolerated well. c. Return to clinic p.r.n. Reassured her about their benign nature and about the possibility of recurrence. cc: Annabella Magana PA-C documented in this encounter Plan of Treatment Not on file documented as of this encounter Visit Diagnoses Diagnosis Seborrheic keratosis, inflamed Inflamed seborrheic keratosis documented in this encounter Care Teams Rn Disease Management Relationship Specialty Start Date End Date Phyllis Daniels PA [address] [address] PCP - General 10/25/14 04/11/20 documented as of this encounter
--- OUTSIDE RECORDS SUMMARY | 2024-05-12 19:27 | XMS_ITS | Encounter Summary ---
[place] [address] Care Team Providers Care Print Producer Name Role Phone Phyllis Daniels Primary Care Provider +1- [phone] Reason for Visit * Reason Onset Date Comments Reminder Appointment 07/17/2020 Encounter Details Date Type Department Care Team (Late st Contact Info) Description 07/17/2020 Telephone [place] [id number] Lelia Daniel CCMA Reminder Appointment Social History Tobacco Use Types Packs/Day Years Used Date Smoking Tobacco: Former Smokeless Tobacco: Never Sex and Gender Information Value Date Recorded Sex Assigned at Not on file Gender Identity Female 07/10/2020 7:24 PM EST Sexual Orientation Not on file documented as of this encounter Miscellaneous Notes * Telephone Encounter - Lelia Daniel LNA - 07/17/2020 10:01 AM EST Called patient to review medications and allergies for their upcoming gastroenterology Type of Appointment: Telehealth appointment. Reach Patient during MA Check: Yes Notes for the provider: Notes for the nurse: documented in this encounter Plan of Treatment Not on file documented as of this encounter Visit Diagnoses Not on filedocumented in this encounter Care Teams Print Producer Relationship Specialty Start Date End Date Phyllis Daniels PA [address] [place] [address] PCP - General Family Medicine 06/23/20 documented as of this encounter
--- OUTSIDE RECORDS SUMMARY | 2024-05-12 19:27 | XMS_ITS | Encounter Summary ---
[place] [address] Care Team Providers Care Emergency Medical Tech Name Role Phone Phyllis Daniels Primary Care Provider [phone]- [phone] Reason for Visit * Reason Comments Follow-up Encounter Details Date Type Department Care Team (Late st Contact Info) Description 10/07/2017 10:00 AM EST Office Visit D[facility]ology at [place] [address] [facility] [place] [address] Clay Golden MD [address] [facility] [place] [address] Acrochordon; Seborrheic keratosis, inflamed Social History Tobacco Use Types Packs/Day Years Used Date Smoking Tobacco: Former Smokeless Tobacco: Never Sex and Gender Information Value Date Recorded Sex Assigned at Not on file Gender Identity Female 07/10/2020 7:24 PM EST Sexual Orientation Not on file documented as of this encounter Progress Notes * Clay Golden MD - 10/07/2017 10:00 AM EST Problem: Irritated acrochordons Afia follows up after last being seen in April. She has noticed some new lesions of concern Physical examination reveals a firm somewhat tender nodule in the left axillary vault. It appears consistent with a follicular cyst. She has 2 irritated acrochordons on the chest one in the intramammary chest one on the left upper anterior chest, she has an irritated seborrheic keratosis on her left flank otherwise examination of the face the neck the chest the back hands and forearms is benign. Assessment and plan: Irritated acrochordons chest intramammary chest, left upper chest 1. LN 2 x 2 applied to both sites 2. Post LN 2 x 2 wound care instructions given Irritated seborrheic keratosis left flank 1. LN 2 x 2 could be applied at the site in the future. Irritated follicular cyst left axillary vault 1. We will schedule 45 minute point for excision of this in the near future for patient. Cc: Phyllis DUTTON documented in this encounter Plan of Treatment Not on file documented as of this encounter Visit Diagnoses Diagnosis Acrochordon Unspecified hypertrophic and atrophic condition of skin Seborrheic keratosis, inflamed Inflamed seborrheic keratosis documented in this encounter Care Teams Emergency Medical Tech Relationship Specialty Start Date End Date Phyllis Daniels PA [address] [place] [address] PCP - General 10/25/14 04/11/20 documented as of this encounter
--- OUTSIDE RECORDS SUMMARY | 2024-05-12 19:27 | XMS_ITS | Encounter Summary ---
Author Organization [facility] Address [address] [place] [address] Care Team Providers Care Aemt Name Role Phone Phyllis Daniels PA-C Primary Care Provider + Encounter Details Date Type Department Care Team (Latest Contact Info) Description 05/31/2019 11:24 EDT - 05/31/2019 23:59 EDT Hospital Encounter [address] [address] Unknown, Provider, Discharge Disposition: Home or Self Care Social History Tobacco Use Types Packs/Day Years Used Date Smoking Tobacco: Never Assessed Sex and Gender Information Value Date Recorded Sex Assigned at Not on file Gender Identity Not on file Sexual Orientation Not on file documented as of this encounter Discharge Disposition Disposition Code Departure Means Destination Home or Self Longterm documented in this encounter Plan of Treatment Not on file documented as of this encounter Visit Diagnoses Not on filedocumented in this encounter Care Teams Aemt Relationship Specialty Start Date End Date Phyllis Daniels PA-C [address] [place] [phone] PCP - General 08/20/13 documented as of this encounter
--- OUTSIDE RECORDS SUMMARY | 2024-05-12 19:27 | XMS_ITS | Encounter Summary ---
Author Organization [facility] Address [address] [place] [address] Care Team Providers Care Survey Superintendent Name Role Phone Unavailable Primary Care Provider Unavailabl e Encounter Details Date Type Department Care Team (Late st Contact Info) Description 06/21/2008 Before PRISM Converted Visit (Map[facility]) [facility] - Maple conversion [address] [place] [address] Helga Wilks MD [address] [place] [address] Social History Tobacco Use Types Packs/Day Years Used Date Smoking Tobacco: Never Assessed Sex and Gender Information Value Date Recorded Sex Assigned at Not on file Gender Identity Not on file Sexual Orientation Not on file documented as of this encounter Plan of Treatment Not on file documented as of this encounter Procedures Procedure Name Priority Date/Time Associated Diagnosis Comments SURGICAL PATHOLOGY Routine 06/21/2008 0:00 EDT documented in this encounter Results * SURGICAL PATHOLOGY (06/21/2008 0:00 EDT) Pathology Report: SURGICAL PATHOLOGY REPORT ? Reports generated via electronic interface contain original data; ? however they are lacking the format of the original report. ? Caution should be taken when reading/interpreti ng unformatted reports. ? Name: ? SABENS, AFIA ? Accession #: ? [id number] ? : ? 1960 (Age: 47) ??F ? Collect Date: ? 06/21/2008 ? Location: ? [facility] ? Receive Date: ? 06/22/2008 ? Provider: HELGA NAEEM MD ? Copy to: ELIE READY MD ? Final Pathologic Diagnosis: ? Endometrium, biopsy: ? 1. ?Endometrial polyp, hyperplastic type. ? 2. ? Late secretory-type endometrium. ? Document reviewed and electronically signed by: ? Koffi Brewer MD ? Report ??Date: 06/23/2008 18:39 ? By the signature above, the attending physician certifies that he/she has ? personally conducted a gross and/or microscopic examination of the described ? specimens and rendered or confirmed the above diagnosis. ? Specimen(s) Received: ? Endometrial bx ? Clinical History: ? DUB; LMP: 10/8/08; clinical diagnosis code: ??626.8 ? Gross Description: ? Received in formalin labelled Sabens and endometrial biopsy is a 1.5 x 1.5 x 0.3 cm aggregate of pink-arenas soft tissue fragments, admixed with blood, ?? filtered and entirely submitted in (A1) and (A2). ??(Jose Carlos Palma)/marilee ? End of Report ? EMY ELIAS 06/21/2008 06/22/2008 12: 50 EDT Helga Wilks MD PATHOLOGY ORDERABLES EMY ELIAS [address] [place] [address] documented in this encounter Visit Diagnoses Not on filedocumented in this encounter
--- OUTSIDE RECORDS SUMMARY | 2024-05-12 19:27 | XMS_ITS | Encounter Summary ---
Author Organization [facility] Address [address] [place] [address] Care Team Providers Care Managing Director Atlas Name Role Phone Juan Antoniomadelaine Sarika Hunt PA-C Primary Care Provider + Encounter Details Date Type Department Care Team (Late st Contact Info) Description 05/31/2019 Results Only [facility] [phone] Vince Woodruff, [address] [id number] Social History Tobacco Use Types Packs/Day Years Used Date Smoking Tobacco: Never Assessed Sex and Gender Information Value Date Recorded Sex Assigned at Not on file Gender Identity Not on file Sexual Orientation Not on file documented as of this encounter Plan of Treatment Not on file documented as of this encounter Procedures Procedure Name Priority Date/Time Associated Diagnosis Comments SURGICAL PATHOLOGY Routine 05/31/2019 8:20 EDT documented in this encounter Results * SURGICAL PATHOLOGY (05/31/2019 8:20 EDT) Pathology Report: SURGICAL PATHOLOGY REPORT Reports generated via electronic interface contain original data; however they are lacking the format of the original report. Caution should be taken when reading/interpret ing unformatted reports. Name: ? AFIA RODRIGUEZ ? Accession #: ? [id number] ? : ? 1960 (Age: 58) ??F ? Collect Date: ? 05/31/2019 ? Location: ? [facility] ? Receive Date: ? 05/31/2019 ? Provider: VINCE WOODRUFF DO Copy to: SARIKA LEE PA-C ? 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 ??The overlying stratum corneum has ortho- and parakeratosis. ??The epidermis has foci of cells with clear cytoplasm. ??Other areas have glassy eosinophilic cytoplasm with squamous xavi formation. ??The nuclei at the periphery of the lobules are arranged in a palisaded fashion. ??The lobules are bounded by a thick eosinophilic basement membrane. ?? (Dr. Ortega)/[facility] Document reviewed and electronically signed by: DAMON ORTEGA MD Report ??Date: 06/02/2019 16:43 By the signature above, the attending physician certifies that he/she has personally conducted a gross and/or microscopic examination of the described specimens and rendered or confirmed the above diagnosis. Specimen(s) Received: Cheek left Clinical History: Non-healing skin lesion Gross Description: ? Received in formalin labelled with proper patient identification (initials S, S) and left cheek is a shave biopsy of an irregular arenas-white papule (0.5 x 0.4 x 0.1 cm). The margin is inked blue. The specimen is submitted intact in 1. Reji West 06/01/2019 10:31 AM End of Report [facility] 05/31/2019 8:20 EDT 05/31/2019 8:20 EDT Vince Woodruff DO PATHOLOGY ORDER YUE [facility] [address] [place] [address] documented in this encounter Visit Diagnoses Not on filedocumented in this encounter Care Teams Managing Director Atlas Relationship Specialty Start Date End Date Sarika Lee PA-C [address] [place] [phone] PCP - General 08/20/13 documented as of this encounter
--- OUTSIDE RECORDS SUMMARY | 2024-05-12 19:27 | XMS_ITS | Data Portability ---
Author Organization [place] - [facility], [facility] Address [address] [place] [address] Assessment No assessment recorded. Plan of Treatment Reminders Order Date Submit Date Provider Last Modified By Organization Details Last Modified Time Details Appointments Follow Up 2023 04:30P M Not available Not available Not available Nurse Visit 20 2023 03:00P M Not available Not available Not available Lab None recorded. Referral None recorded. Procedures None recorded. Surgeries None recorded. Imaging None recorded. Medication Orders albuterol sulfate HFA 90 mcg/actua tion aerosol inhaler 2023 024 [facility], [address] [facility], [place], [address], 11/11/2023 11:35:51 Patient TargetsNo targets recorded. Patient InstructionsNo instructions recorded. Reason for Referral None Reported. Results Created Date Observation Date Name Description Value Unit Range Abnormal Flag Note LastModifiedBy Organization Detail LastModifiedTime 11/03/1911/03/2023 MAMMO , scree patricia, bilat eral Patiriley t Name: Jolanta Ernandez Unit #: [id number] Loc: DI Orderi ng Provid er: Lucy Cardona rn Accoun t #: [id number] Status : REG CLI Primar y Care Provid er: Lucy Cardona rn Date of Exa m: Sex: F Admiss ion Date: : 1959 Age: 63 Exam(s ) MG MAMMO SCREEN ING EXAM: MG MAMMO SCREEN ING CLINIC AL HISTOR Y: MAMMO YEARLY SCREEN ING Z12.31 TECHNI QUE: Bilate ral full field digita l CC and MLO mammog raphic images were obtain ed with 3D tomosy nthesi s and utiliz ing comput er aided detect ion (CAD). COMPAR EDNA: Availa ble for compar edna. FINDIN GS: Masses /Archi tectur al Distor tion: There is a nodule again seen in the lower inner quadra nt of the left breast with coarse calcif icatio ns most sugges tive of a degene rating fibroa denoma . No new masses or areas of tristan ectura l distor tion are seen. Microc alcifi cation s: No suspic ious pleomo rphic- type are seen. Skin Thicke patricia/N ipple Retrac tion: None. IMPRES VAMSHI: 1. No signif icant interv al change with no specif ic featur es of malign barbi noted. 2. Unless there is more urgent need, screen ing mammog adamaris is recomm ended, as per [employer] [facility] [employer] y guidel jen. BI-RAD S Catego ry 2 - Benign Findin gs Breast Densit y - Catego ry C - Hetero geneou sly dense Breast densit y catego ry C or D implie s that the patien t has dense breast tissue . Dense breast tissue is very common and is not abnorm al but dense breast tissue can make it harder to find cancer on a mammog maurice. Also, dense breast tissue may increa se their breast cancer risk. This inform ation about the result of the mammog maurice report was provid ed to the patien t to raise their awaren ess. Use this report when you speak with the patien t about their risks for breast cancer , which includ es their family histor y. At that time, you may recomm end for more screen ing tests (Ultra sound or MRI) as they might be useful based on their risk. A negati ve radiog raphic report should not delay biopsy if a domina nt or clinic ally suspic ious mass is presen t. Up to ten percen t of cancer s are not identi fied on mammog adamaris. A negati ve report may reinfo rce clinic al impres vamshi. Adenos is and dense breast s may obscur e an underl timothy neopla sm. False positi ve report s averag e 6 to 10%. Patien t will receiv e a letter notify ing them of these result sJasmeet Mosher d By: Brendan mena,Lucy DUTTON CC: ------ ------ ------ ------ ------ ------ ------ ------ ------ ------ ------ ------ - Dictat ed By: Donis Acuña M.D. 812 Transc ribed By: Donis Acuña 812 This is privil eged, confid ential inform ation intend ed only for the provid er named. Any use or distri bution by any person other than this provid er is strict ly prohib ited. If you receiv e this report in error, please notify us immedi mary alicely at and return the origin al report to us at the addres s above. Thank- you. [email or web address] [address] , [place], [address] 11/09/2023 10:06:08 02/23/20 24 02/05/2024 home sleep study No observ ation record ed. [email or web address] [facility] [address] [place] [address] [address], [place], [address], 02/23/2024 08:46:30 05/10/20 24 01/19/2019 MAMMnapoleon Lassiter No observ ation record ed. Not Available 05/10 19:52:30 05/10/20 24 03/20/2021 MAMMO jannae patricia No observ ation record ed. Not Available 05/10 19:52:31 05/10/20 24 02/27/2022 imagi ng/abhinav dennis t No observ ation record ed. Not Available 05/10 19:52:32 05/10/20 24 02/06/2022 imagi ng/di agnos tic resul t No observ ation record ed. Not Available 05/10 19:52:33 05/10/20 24 06/19/2020 CT, abdom en No observ ation record ed. Not Available 05/10 19:52:35 05/10/20 24 01/19/2019 imagi ng/di agnos tic resul t No observ ation record ed. Not Available 05/10 19:52:55 05/10/20 24 09/15/2018 imagi ng/di agnos tic resul t No observ ation record ed. Not Available 05/10 19:52:56 05/10/20 24 11/10/2018 imagi ng/di agnos tic resul t No observ ation record ed. Not Available 05/10 19:52:57 05/10/20 24 03/01/2022 imagi ng/di agnos tic resul t No observ ation record ed. Not Available 05/10 19:53:33 Result Notes None recorded. Problems Name Problem SNOMED Code Status Onset Date Resolution Date Notes Provider Name and Address Organization Details Recorded Time Hyperlip idemia 28077277 Active 200711/13/19 23 - Comments only - Phyllis Lee PA-C - Maintain ed on FENOFIBR ATE 160mg QD. Problem Code: E78.5; Problem Code Type: ICD-10; Not Available [facility] 3 05:36:30 Nicotine dependen ce 04554423 Active 2003 Problem Code: Z87.891; Problem Code Type: ICD-10; Not Available [facility] 3 05:36:30 Menopaus e present 350378671 Active 201011/13/19 23 - Comments only - Phyllis Lee PA-C - - MENOPAUS AL SYNDROME Stable on EFFEXOR XR 37.5mg QD. OK to suppleme nt with OTC MELATONI N vs. TYLENOL PM PRN for sleep. Problem Code: N95.1; Problem Code Type: ICD-10; Not Available [facility] 3 05:36:31 Fatigue 19968987 Completed 201408/02/2015 Problem Code: R53.83; Problem Code Type: ICD-10; Not Available [facility] 3 05:36:31 General examinat ion of patient Active 201401/17/20 21 - Comments only - Phyllis Lee PA-C - SHINGRIX #1 administ ered by [facility]. Will arrange for mammogra m at [facility] at next availabl e. Problem Code: Z00.8; Problem Code Type: ICD-10; Not Available [facility] 3 05:36:31 Allergic rhinitis 57564318 Active 201405/02/20 15 - Comments only - Phyllis Lee PA-C - Given incomple te response to current antihist amine therapy, will replace with RXd ZYRTEC 10mg QD as trial. OK to continue to suppleme nt with RFd FLONASE PRN Problem Code: J30.9; Problem Code Type: ICD-10; Not Available [facility] 3 05:36:31 Acute sinusiti s 08531264 Completed 201610/14/2016 09/30/19 17 - Comments only - Phyllis Lee PA-C - Will treat with AUGMENTI N 875-125m g BID x 7d. Patient otherwis e to continue with supporti ve measures (OTC NSAIDs, steam showers, sinus irritati on) to promote sinus drainage . F/U PRN if sxs fail to improve over the course of the week with ABX treatmen t as above. Problem Code: J01.90; Problem Code Type: ICD-10; Not Available [facility] 3 05:36:31 Essentia l hyperten vamshi 02717990 Active 201611/13/19 23 - Comments only - Phyllis Lee PA-C - - HTN Today's BP @ goal on combinat ion of COZAAR 100mg QD and CHLORTHA LIDONE 12.5mg QD Problem Code: I10; Problem Code Type: ICD-10; Not Available [facility] 3 05:36:31 Prediabe gordo 000699279 Active 201611/13/19 23 - Comments only - Phyllis Lee PA-C - Will plan to repeat A1C annually as monitori ng. Problem Code: R73.03; Problem Code Type: ICD-10; Not Available [facility] 3 05:36:31 Diarrhea 06529892 Completed 201604/29/2017 04/15/20 17 - Comments only - Phyllis Lee PA-C - Timing supports trial of OTC PROBIOTI C +/- FIBER SUPPLMEN T (treated with 7d course of AUGMENTI N for sinus infectio n back in September ). Problem Code: R19.7; Problem Code Type: ICD-10; Not Available [facility] 3 05:36:31 Hepatome harsh 68122749 Active 201611/13/19 23 - Comments only - Phyllis Lee PA-C - FIB-4 calcualt ed @ 0.66 based upon laborato ry testing through [facility] ED in February to suggest low risk for advanced fibrosis . 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 Patient otherwis e encour ed to continue effort to promote sinus drainage (steam showers, sinus irritati on, OTC NSAIDs). F/U PRN. Problem Code: J01.90; Problem Code Type: ICD-10; Not Available [facility] 3 05:36:32 Acute upper respirat ory infectio n 07648903 Completed 201810/03/2018 Problem Code: J06.9; Problem Code Type: ICD-10; Not Available [facility] 3 05:36:32 Senile osteopor osis 00730727 Active 2018 Problem Code: M81.0; Problem Code Type: ICD-10; Not Available [facility] 3 05:36:32 Acute sinusiti s 41559435 Completed 201803/24/2019 03/10/20 19 - Comments only - Phyllis Lee PA-C - Given patient h/o recurren t sinusiti s (last treated 08/2018), will treat with 7d course of AUGMENTI N 500-125m g BID. She will otherwis e keep up with effort to improve sinus drainage (OTC NSAIDs, steam showers/ hot compress es, sinus irrigati on) and expect for progress gladys improvem ent over the course of the week. F/U PRN. Problem Code: J01.90; Problem Code Type: ICD-10; Not Available [facility] 3 05:36:32 Disorder of skin and/or subcutan eous tissue 49574939 Completed 201805/04/2019 04/20/20 19 - Comments only - Phyllis Lee PA-C - Suspect [place]. Will arrange for excision al biopsy via ENT/plas tic surgery at next availabl e Problem Code: L98.9; Problem Code Type: ICD-10; Not Available [facility] 3 05:36:32 Disorder of nasal sinus 0845201 Completed 201805/04/2019 04/20/20 19 - Comments only - Phyllis Lee PA-C - Suggeste d patient to RS FLONASE vs. 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 Although at this time, Afia does not feel as though increase in EFFEXOR is indicate d (current ly 37.5mg QD), she will be mindful to need for adjustme nt in the future. Problem Code: F41.9; Problem Code Type: ICD-10; Not Available [facility] 3 05:36:32 Gastroin testinal tract excision Active Problem Code: Z90.49; Problem Code Type: ICD-10; Not Available [facility] 3 05:36:33 Diarrhea 50040336 Completed 201906/27/2020 Problem Code: R19.7; Problem Code Type: ICD-10; Not Available [facility] 3 05:36:33 Pain of right lower leg 93011440761 9108 Active 2021 Problem Code: M79.661; Problem Code Type: ICD-10; Not Available [facility] 3 05:36:33 Family problems 544371909 Active 202108/15/20 22 - Comments only - Cynthia Aguirre [facility] - - She declines PHQ-9 and BERTHA-7 today, and reports that she is doing much better mood charles. - We did briefly discusse d the option of increasi ng her venlafax ine for mood benefit. She declines at this time. 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 Exercise capacity >4 METs, BMI <30. No cardiova scular history. - BMP drawn today -Low risk for upcoming moderate risk procedur e; recommen d standard perioper ative care Problem Code: Z01.818; Problem Code Type: ICD-10; Not Available [facility] 3 05:36:33 Bone density finding 459377551 Completed 201805/21/2023 07/06/20 19 - Comments only - Phyllis Lee PA-C - Maintain ed on FOSAMAX. Will consider repeat DEXA in 12/2023 as monitori ng. 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 WIll consider to monitor annually Problem Code: R73.01; Problem Code Type: ICD-10; Not Available [facility] 3 05:36:40 Right upper quadrant pain 906559461 Completed 201909/25/2021 Problem Code: R10.11; Problem Code Type: ICD-10; Not Available [facility] 3 05:36:40 Hypergly cemia 24077241 Completed 201605/21/2023 Problem Code: R73.9; Problem Code Type: ICD-10; Not Available [facility] 3 05:36:41 Liver enzymes level above referenc e range 619000135 Completed 201612/30/2017 Not Available [facility] 3 05:36:41 Postmeno pausal bleeding 72727410 Completed 201412/30/2017 Problem Code: N95.0; Problem Code Type: ICD-10; Not Available [facility] 3 05:36:41 Dysuria 04160027 Completed 201903/13/2020 Problem Code: R30.0; Problem Code Type: ICD-10; Not Available [facility] 3 05:36:41 HPV - Human papillom avirus test negative Completed 201301/30/2015 Not Available [facility] 3 05:36:42 Polyp of corpus uteri 36094744 Completed 200712/30/2017 Problem Code: N84.0; Problem Code Type: ICD-10; Not Available [facility] 3 05:36:42 Viral disease 43651580 Completed 202109/25/2021 Problem Code: B34.9; Problem Code Type: ICD-10; Not Available [facility] 3 05:36:42 Pain in thoracic spine 804062194 Completed 201612/30/2017 Problem Code: M54.9; Problem Code Type: ICD-10; Not Available [facility] 3 05:36:44 History of clinical finding in subject 436450346 Completed 200305/21/2023 Not Available [facility] 3 05:36:45 Disorder of female genital organs 293556831 Completed 200705/21/2023 Problem Code: 629.89; Problem Code Type: ICD-9; Not Available [facility] 3 05:36:46 Chest pain 99500855 Completed 201612/30/2017 Problem Code: R07.9; Problem Code Type: ICD-10; Not Available [facility] 3 05:36:47 Restless legs 63623062 Completed 201512/10/2016 Problem Code: G25.81; Problem Code Type: ICD-10; Not Available [facility] 3 05:36:48 Pain in thoracic spine 710388480 Completed 201512/30/2017 Problem Code: M54.6; Problem Code Type: ICD-10; Not Available [facility] 3 05:36:48 Generali zed abdomina l pain 269522389 Completed 201612/30/2017 Problem Code: R10.84; Problem Code Type: ICD-10; Not Available [facility] 3 05:36:49 Liver function tests outside referenc e range 420124874 Completed 201512/10/2016 Problem Code: R94.5; Problem Code Type: ICD-10; Not Available [facility] 3 05:36:49 Steatosi s of liver 642622787 Active 2023 NADYA RAE MA [facility], [place] - [facility] 4 15:53:28 Screenin g mammogra phy Active 2022 Problem Code: Z12.31; Problem Code Type: ICD-10; Not Available [facility] 4 05:37:27 Screenin g for malignan t neoplasm of colon Active 2022 Problem Code: Z12.11; Problem Code Type: ICD-10; Not Available [facility] 4 05:37:27 Snoring 91682181 Active 202205/13/20 23 - Comments only - Phyllis Lee PA-C - Will refer to [facility] for evaluati on for PSG (r/o SAL). In the interim, Afia agrees to trial OTC BENADRYL 25-50mg QHS PRN for insomnia . She will otherwis e continue on EFFEXOR XR 37.5mg QD as RXd. Problem Code: R06.83; Problem Code Type: ICD-10; Not Available [facility] 4 05:37:27 Pain in finger of left hand 14213381408 9105 Active 2022 Problem Code: M79.645; Problem Code Type: ICD-10; Not Available [facility] 4 05:37:28 Abdomina l pain 53302851 Completed 202205/23/2023 Problem Code: R10.9; Problem Code Type: ICD-10; Not Available [facility] 4 05:37:28 Malaise 163919523 Completed 202205/21/2023 Problem Code: R53.81; Problem Code Type: ICD-10; Not Available [facility] 05:37:28 Notes:*Problem Name: Hyperpl astic Endometrial Polyp *ICD-10 Codes: *Problem Status: inactive *Comments: *Note Date: 07/01/2008 Problem Notes None recorded. Procedures Surgical History None recorded. Imaging Results Imaging Date Name Status LastModified by Organiz ation Details LastModified Time 11/03/2023 MAMMO, screening, bilateral completed [email or web address] [address], [address] 11/09/2023 10:06:08 02/05/2024 home sleep study completed [email or web address] [facility] [address] [place] [address] [address], [place], [address], 02/23/2024 08:46:30 01/19/2019 MAMMO, screening completed Information not available 05/10/2024 19:52:30 03/20/2021 MAMMO, screening completed Information not available 05/10/2024 19:52:31 02/27/2022 imaging/diagno stic result completed Information not available 05/10/2024 19:52:32 02/06/2022 imaging/diagno stic result completed Information not available 05/10/2024 19:52:33 06/19/2020 CT, abdomen completed Information n ot available 05/10/2024 19:52:35 01/19/2019 imaging/diagno stic result completed Information not available 05/10/2024 19:52:55 09/15/2018 imaging/diagno stic result completed Information not available 05/10/2024 19:52:56 11/10/2018 imaging/diagno stic result completed Information not available 05/10/2024 19:52:57 03/01/2022 imaging/diagno stic result completed Information not available 05/10/2024 19:53:33 Procedure Notes None recorded. Medical Equipment None Reported. Allergies Allergen ID Allergen Name Allergen Category Reaction Reaction Severity Criticality Documentation Date Start Date Code Code System Note Provider Name and Address Organization Details Recorded Time 33363 lisinopri l medicatio n cough Not available low 11/11/2023 94816 RxNorm NADYA RAE MA [facility] 4 10:56:15 56597 Zyban medicatio n Not available Not available high 11/11/2023 11764 8 RxNorm space s, loopy NADYA RAE MA [facility] 4 10:56:34 Medications Name Sig Start Date Stop Date Status Note LastModified by Organization Details LastModified Time Prescript ion - Renewal active RF KRISTEN/ FLONASE Not Available Not Available Not Available losartan 50 mg tablet Take 1 tablet by mouth once a day 01/11 completed Not Available Not Available Not Available cyclobenz aprine 10 mg tablet Take 1 tab by mouth TID, PRN. No driving with this medicati on. 12/30 completed Not Available Not Available Not Available tretinoin 0.1 % topical cream 1 drop once at bedtime 05/[address] Golden December 2014 Not Available Not Available Not Available lindane 1 % lotion 04/17 completed Not Available Not Available Not Available venlafaxi ne ER 37.5 mg capsule,e xtended release 24 hr TAKE ONE CAPSULE BY MOUTH EVERY DAY active Not Available Not Available No t Available dextromet horphan polistire x ER 30 mg/5 mL oral susp ext.relea se 12hr Take 5 ml by mouth four times a day as needed for cought 02/23 completed Not Available Not Available Not Available Effexor XR 75 mg capsule,e xtended release Take 1 tab by mouth daily 2014 active Not Available Not Available Not Avai lable Zyrtec-D 5 mg-120 mg tablet,ex tended release Take 1 tablet by mouth twice a day Take one tablet twice a day 09/25 completed Not Available Not Available Not Available trazodone 50 mg tablet 1 tab at bedtime as needed 12/10 completed Not Available Not Available Not Available cefpodoxi me 200 mg tablet 1 tablet by mouth twice a day 05/27 completed Not Available Not Available Not Available Patanol 0.1 % eye drops 08/07 completed Not Available Not Available Not Available Flonase 50 mcg/DOSE nasal inhaler 2 SPRAY QD 2012 active Not Available Not Available Not Avai lable lisinopri l 20 mg tablet Take 1 tab by mouth daily 04/15 completed Not Available Not Available Not Available alendrona te 70 mg tablet Take 1 tablet by mouth once a week 11/12 completed Not Available Not Available Not Available Metrogel 0.75 % topical gel twice daily 2014 active Not Available Not Available Not Avai lable Pyridium 200 mg tablet 1 TAB three times daily 12/20 completed Not Available Not Available Not Available Zithromax 250 mg tablet CAP .as dir 11/14 completed Not Available Not Available Not Available Zyrtec 10 mg tablet 1 TAB DAILY 11/21 completed Not Available Not Available Not Available chlorthal idone 25 mg tablet TAKE ONE-HALF TABLET BY MOUTH EVERY MORNING active Not Available Not Available No t Available fexofenad ine 180 mg tablet TAKE ONE TABLET BY MOUTH EVERY DAY 2020 active OTC Not Available Not Available Not Avai lable amoxicill in 500 mg tablet 1 CAP TID 02/10 completed Not Available Not Available Not Available Zofran 4 mg tablet 1 tablet by mouth every six hours as needed 01/16 completed Not Available Not Available Not Available Tessalon Perles 100 mg capsule Take 1 capsule by mouth three times a day as needed For cough 04/16 completed Not Available Not Available Not Available amoxicill in 875 mg tablet 1 TAB twice daily 11/08 completed Not Available Not Available Not Available Flagyl 500 mg tablet 07/07 completed Not Available Not Available Not Available meclizine 25 mg tablet Take 1 tablet 3 times a day by oral route as needed, for VERTIGO. 2023 active Not Available Not Available Not Avai lable gemfibroz il 600 mg tablet Take 1 tab by mouth twice daily 01/12 completed Not Available Not Available Not Available erythromy emani 5 mg/gram (0.5 %) eye ointment APPLY TO AFFECTED EYELIDS FOUR TIMES A DAY AFTER SURGERY 11/10 completed Not Available Not Available Not Available vitamin E 400 unit tablet 1CAP daily 06/29 completed Not Available Not Available Not Available Elimite 5 % topical cream 06/12 completed Not Available Not Available Not Available omeprazol e 20 mg capsule,d elayed release TAKE ONE CAPSULE BY MOUTH EVERY DAY active Not Available Not Available No t Available bisacodyl 5 mg tablet,de layed release TAKE PER COLONOSC OPY INSTRUCT IONS PROVIDED BY ORDERING PROVIDER S OFFICE 05/12 completed Not Available Not Available Not Available magnesium 250 mg tablet 1CAP daily 06/29 completed Not Available Not Available Not Available Cozaar 25 mg tablet Take 1 tab by mouth daily 12/02 completed Not Available Not Available Not Available zolpidem 5 mg tablet TAKE 1 TO 2 TABLETS BY MOUTH NIGHT OF SLEEP STUDY IF NEEDED 05/12 completed Not Available Not Available Not Available Levaquin 500 mg tablet 1 TAB daily 01/21 completed Not Available Not Available Not Available albuterol sulfate HFA 90 mcg/actua tion aerosol inhaler INHALE TWO PUFFS BY MOUTH EVERY 4 TO 6 HOURS NEEDED active Not Available Not Available No t Available [facility] W[facility] 300 mg tablet 1TAB twice daily 06/29 completed Not Available Not Available Not Available losartan 100 mg tablet TAKE ONE TABLET BY MOUTH EVERY DAY active Not Available Not Available No t Available Erythromy emani (Ophth) 5 mg/g eye ointment APPLY Q4H 02/26 completed Not Available Not Available Not Available fluticaso ne propionat e 50 mcg/actua tion nasal spray,soham pension Letart 2 spray into both nostrils once a day 01/08 completed stopped by sleep clinic, Nadya Montiel 01/08/24 Not Available Not Available Not Available amoxicill in 875 mg-potass ium clavulana te 125 mg tablet Take 1 tablet by mouth twice a day take if high fevers or if not improved after 10 days of illness 02/23 completed Not Available Not Available Not Available amoxicill in 500 mg-potass ium clavulana te 125 mg tablet TAKE ONE TABLET BY MOUTH TWICE A DAY FOR 10 DAYS 11/10 completed Not Available Not Available Not Available Augmentin 875 mg tablet 1 TAB twice daily 06/15 completed Not Available Not Available Not Available Bactrim DS 800 mg-160 mg tablet Take 1 tab by mouth twice daily x 3 days 01/23 completed Not Available Not Available Not Available Prempro 0.3 mg-1.5 mg tablet 1CAP daily 02/09 completed Not Available Not Available Not Available fenofibra te 160 mg tablet TAKE ONE TABLET BY MOUTH EVERY DAY 03/12 completed Not Available Not Available Not Available Guaifenes in-Codein e 5ML every six hours 07/24 completed Not Available Not Available Not Available fenofibra te nanocryst allized 145 mg tablet Take 1 tab by mouth daily 2019 active Not Available Not Available Not Avai lable Gavilax 17 gram/dose oral powder TAKE PER COLONOSC OPY INSTRUCT IONS PROVIDED BY ORDERING PROVIDER S OFFICE 05/12 completed Not Available Not Available Not Available Kristen Allergy 60 mg tablet Take 1 by mouth daily 05/02 completed Not Available Not Available Not Available Metrogel 1 % topical gel with pump apply once daily 05/[address] [place] zapata from bid In December 2014 Not Available Not Available Not Available Vitals Date Recorded Body height Oxygen saturation Oxygen saturation in Arterial blood by Pulse oximetry Heart rate Body mass index (BMI) Body weight Systolic blood pressure Diastolic blood pressure Provider Name and Address Organization Details Last Updated DateTime 4 164.465 cm 97 % 97 % 62 /min 29.1 kg/m2 95021.2 8 g 130 mm[Hg] 70 mm[Hg] NADYA RAE MA [facility] 4 11:00:17 Date Recorded Body height Body mass index (BMI) Body weight Heart rate Systolic blood pressure Diastolic blood pressure Provider Name and Address Organization Details Last Updated DateTime 4 165.1 cm 30.8 kg/m2 13480.2 9 g 60 /min 104 mm[Hg] 62 mm[Hg] RUSSEL MARTINS LPN [facility] 4 16:35:19 Social History Question Answer Notes LastModified by Organizat ion Details LastModified Time Tobacco Smoking Status Former Smoker NADYA RAE MA [facility], [facility] 11/11/2023 10:59:07 When Did You Quit Smoking? 11-15yearssi ncelastcigar ette Information not available 11/11/2023 What Was The Date Of Your Most Recent Tobacco Screening? 11/11/2023 Information not available 11/11/2023 What Is Your Current Pack Years? 30ormorepack years Information not available 11/11/2023 At What Age Did You Start Smoking Tobacco? 16 Information not available 11/11/2023 How Much Tobacco Do You Smoke? No Information not available 11/11/2023 Has Tobacco Cessation Counseling Been Provided? No Information not available 11/11/2023 Do You Or Have You Ever Used Any Other Forms Of Tobacco Or Nicotine? No Information not available 11/11/2023 Sex: Female Functional Status None recorded. Mental Status None recorded. Family History Relationship Description Onset Age of this Age Resolved Age Notes LastModified by Organization Details LastModified Time Sister Family history of Depression Not available 07/04 03:57:23 Mother Family history of Hypertension Not available 05/2023 03:57:24 Mother Family history of acute medical disorder [place] Not available 07/04/2023 03:57:24 Mother Family history of diabetes mellitus type 1 Not available 2022 03:57:24 Maternal Grandmother Family history of acute medical disorder [place] Not available 07/04/2023 03:57:24 Father Family history of alcoholism Not available 07/04 03:57:24 Maternal Grandfather Family history of malignant neoplasm PROSTA TE CA Not available 07/04/2023 03:57:24 Paternal Grandmother Family history of malignant neoplasm ?STOMA CH Not available 07/04/2023 03:57:24 Brother Family history of diabetes mellitus type 1 Not available 2022 03:57:24 Brother Family history of cardiovascul ar disease in first degree male relative less than 55 years of age [place] @ 33y/o Not available 07/04/2023 03:57:24 Notes:*Problem: Mother: b. 1 936 Fatty liver, gall bladder removed, dementia on meds, DM controlled with diet Father: at 70y/o due to acute liver failure (?hepatitis A) Sisters x 2: x 1 from silent seizure at 42y/o - Remaining with epilepsy, controlled with meds Brothers x 4: x 1 at 55y/o secondary to complications of DM2 - Valvular heart disease with recent DVT x1 SONS x 3 - Alpha 1 antitrysin deficiency x 1 DAUGHTER X 1 - L&W without ongoing medical issues Medical History No medical history recorded. Gynecological HistoryNo gynecological history recorded. Obstetrics History GPAL:G 0 P 0 0 0 0 Immunizations Vaccine Type Date Status Provider Name and Address Organization Details Recorded Time Td (adult), 2 Lf tetanus toxoid, preservative free, adsorbed 12/10/2016 completed Not Available [facility] 07/04/2023 06:23:49 Tdap 10/19/2007 completed Not Available [facility] 06:23:49 Influenza, split virus, quadrivalent, PF 06/12/2020 completed Not Available [facility] 07/04/2023 06:23:49 Influenza, split virus, quadrivalent, PF 07/06/2019 completed Not Available [facility] 07/04/2023 06:23:49 Influenza, split virus, quadrivalent, PF 07/15/2022 completed Not Available [facility] 07/04/2023 06:23:49 zoster recombinant 01/16/2021 completed Not Available [facility] 07/04/2023 06:23:49 zoster recombinant 04/25/2021 completed Not Available [facility] 07/04/2023 06:23:49 COVID-19, mRNA, LNP-S, PF, 100 mcg/0.5mL dose or 50 mcg/0.25mL dose 11/27/2020 completed Not Available [facility] 07/04/20 06:23:49 COVID-19, mRNA, LNP-S, PF, 100 mcg/0.5mL dose or 50 mcg/0.25mL dose 12/25/2020 completed Not Available [facility] 07/04/20 06:23:49 COVID-19, mRNA, LNP-S, PF, 100 mcg/0.5mL dose or 50 mcg/0.25mL dose 08/02/2021 completed Not Available [facility] 07/04/20 06:23:49 COVID-19, mRNA, LNP-S, bivalent, PF, 30 mcg/0.3 mL dose 08/15/2022 completed Not Available [facility] 07/04/2023 06:23:50 influenza, unspecified formulation 06/12/2011 completed Not Available [facility] 07/04/2023 06:23:50 influenza, unspecified formulation 06/28/2003 completed Not Available [facility] 07/04/2023 06:23:50 influenza, unspecified formulation 08/23/2021 completed Not Available [facility] 07/04/2023 06:23:50 Influenza, split virus, quadrivalent, PF 05/13/2023 completed Not Available [facility] 09/05/2023 05:33:22 Past Encounters Encounter ID Performer Location Encounter Start Date Encounter Closed Date Diagnosis/Indication Diagnosis SNOMED-CT Code Diagnosis ICD10 Code [id number] PHYLLIS LEE PA-C [facility] [address] [place] [address] 11/11/2023 10:49:33 11/11/2023 11:45:03 Essential hypertension 27904255 I10 Hyperlipidemia 49973508 E78.5 Prediabetes 807927205 R7 3.03 Snoring 89742265 R06.83 G47.00 Mixed anxi ety and depressive disorder 045186633 Z63.79 Steatosis of liver 1007 K76.0 Alpha-1-an titrypsin deficiency 96769247 E88.01 Screening for malignant neoplasm of colon 203651487 Z12.11 [id number] Ava Andino [facility] [address] [place] [address] 05/12/2024 16:05:05 05/12/2024 17:33:13 Essential hypertension 55260543 I10 Hyperlipidemia 00200150 E78.5 Prediabetes 385948476 R7 3.03 Snoring 21584801 R06.83 G47.00 Mixed anxi ety and depressive disorder 234507262 Z63.79 Steatosis of liver 1007 K76.0 Vertigo 573779799 R42 Health Concerns Section Related Observation LastModified by Organization Detai ls LastModified Time None Recorded Concern Status LastModified by Organization Details LastModified Time None Recorded Advance Directives Directive None Recorded Payers Encounter Date Sequence Insurance Name Policy Number Policy Yañez Covered Member ID Yañez Member ID Guarantor Name 11/11/2023 1 [place] [facility] [id number] Afia Ernandez [id number] Afia Ernandez Notes Date Note Type Note Provider Name and Address Organization Details Recorded Time 11/11/2023 text/html HPI Notes: 63y/o female presenting for 6m f/u HPL, HTN, preDM, and FLD. [address], [place], [address], [facility]. 11/11/2023 12:32:54 OBGyn Episode No OBEpisode recorded.
--- OUTSIDE RECORDS SUMMARY | 2024-05-12 19:27 | XMS_ITS | Encounter Summary ---
Author Organization [facility], Located [facility] [address] Care Team Providers Care Hoist Operator Name Role Phone Phyllis Daniels Primary Care Provider [phone] Reason for Visit * Consultation (Routine) - Closed Specialty Diagnoses / Procedures Referred By Contac t Referred To Contact Gastroenterology Diagnoses DUKE (nonalcoholic steatohepatitis) Liseth Sage MD [facility] [place] [address] [facility] [place] [address] [place] [address] Referral ID Status Reason Start Date Expiration Date V isits Requested Visits Authorized [id number] Closed Consult, Test & Treat 08/07/2020 08/07/2021 1 1 Encounter Details Date Type Department Care Team (Late st Contact Info) Description 11/08/2020 10:00 AM EDT TH Visit (TeleHealth) [place] [address] [facility] [place] [address] NAFLD (nonalcoholic fatty liver disease) Social History Tobacco Use Types Packs/Day Years Used Date Smoking Tobacco: Former Smokeless Tobacco: Never Sex and Gender Information Value Date Recorded Sex Assigned at Not on file Gender Identity Female 07/10/2020 7:24 PM EST Sexual Orientation Not on file documented as of this encounter Last Filed Vital Signs Vital Sign Reading Time Taken Comments Blood Pressure - - Pulse - - Temperature - - Respiratory Rate - - Oxygen Saturation - - Inhaled Oxygen Concentration - - Weight 78.9 kg (174 lb) 11/08/2020 10:23 AM EDT home scale Height 167.6 cm (5' 6) 11/08/2020 10:23 AM EDT reported Body Mass Index 28.08 11/08/2020 10:23 AM EDT documented in this encounter Progress Notes * Lauren Mazariegos RD - 11/08/2020 10:00 AM EDT Nutrition Reason for visit: diet for nafld Wt Readings from Last 5 Encounters: 11/08/20 78.9 kg (174 lb) Ht Readings from Last 5 Encounters: 11/08/20 167.6 cm (5' 6) Body mass index is 28.08 kg/m??. Starting weight was 178 lbs, got down to 169 lbs Meds include: Omeprazole, fenofibrite Diet Recall: has been eating more vegetables Chicken She likes fruits Not a big cheese eater or fish Pizza--flatbread pizza She likes sweets-- She eats 2 meals per day Doesn't normally eat breakfast Exercise: Will be starting to walk 3 days per week as snow is melting Evaluation: 60 years old female with nafld. We are meeting to day via telephone to discuss healthy eating for gradual weight loss and liver health. She did weight watchers and this helped her because the meetings helped. She will look Into zoom meetings, as this will help her to stay movitated. Diet reviewed: Mediterranean Nutrition Status: Good, she would like to continue to lose weight and maintain it Biggest challenge--sticking with diet changes and sweets Recommendations/Plan: 1. Suggest Mediterranean type diet --reviewed some meals that she would like based on her preferences 2. Will send menu to help with meal ideas 3. Also gave link to website with recipes as she's looking for recipe ieas 4. Look into ww for zoom meeting as this seems it would help serve as good support system and hopeful will be going to live meetings post pandemic 5. Agree with plan to walk 3 days per week documented in this encounter Plan of Treatment Scheduled Referrals Name Type Priority Associated Diagnoses Order Schedule Referral to Gastroenterology Outpatient Referral Routine DUKE (nonalcoholic steatohepatitis) Ordered: 08/07/2020 documented as of this encounter Visit Diagnoses Diagnosis NAFLD (nonalcoholic fatty liver disease) Other chronic nonalcoholic liver disease documented in this encounter Care Teams Hoist Operator Relationship Specialty Start Date End Date Phyllis Daniels PA [address] [place] [address] PCP - General Family Medicine 06/23/20 documented as of this encounter
--- OUTSIDE RECORDS SUMMARY | 2024-05-12 19:27 | XMS_ITS | Encounter Summary ---
Author Organization [facility] Address [address] [place] [address] Care Team Providers Care Field Marketing Representative Name Role Phone Unavailable Primary Care Provider Unavailabl e Encounter Details Date Type Department Care Team (Late st Contact Info) Description 09/10/2010 Results Only [facility] Laboratory Services - [facility] ([facility]) [address], [place] [id number] Elie Valdez MD [facility] [address] [place], [place] [id number] Social History Tobacco Use Types Packs/Day Years Used Date Smoking Tobacco: Never Assessed Sex and Gender Information Value Date Recorded Sex Assigned at Not on file Gender Identity Not on file Sexual Orientation Not on file documented as of this encounter Plan of Treatment Not on file documented as of this encounter Procedures Procedure Name Priority Date/Time Associated Diagnosis Comments CYTOPATHOLOGY Routine 09/10/2010 0:00 EST documented in this encounter Results * CYTOPATHOLOGY (09/10/2010 0:00 EST) Pathology Report: CYTOPATHOLOGY REPORT ? Reports generated via electronic interface contain original data; ? however they are lacking the format of the original report. ? Caution should be taken when reading/interpreti ng unformatted reports. ? Name: ? AFIA RODRIGUEZ ? Accession #: ? [id number] ? : ? 1960 (Age: 50) ??F ?Collect Date: ? 09/10/2010 ? Location: ? [facility] ? Receive Date: ? 09/11/2010 ? Provider: ?ELIE READY MD ? Copy to: ? Specimen/Source: ?Pap Test, Cervix/Endocervix, ThinPrep Imaging System ? with manual evaluation ? Last Menstrual Period: ? 12/27/10 ? Previous Gynecologic Pathology: ? Yes: abnormal 1980's ? Treatment History: ? Cryotherapy: early 90's ? Miscellaneous treatment: endo biopsy 10/28/08 ? SPECIMEN ADEQUACY ? Satisfactory for Evaluation ? - transformation zone component present ? GENERAL CATEGORIZATION ? Negative for Intraepithelial Lesion or Malignancy ? Document reviewed and electronically signed by: ? Munira Jimbo, CT(ASCP) ? Report Date: ??09/13/2010 14:01 ? End of Report ? [facility]AS 09/10/2010 09/11/2010 Elie Valdez MD PATHOLOGY ORDERABLES [facility] [address] [place] [address] documented in this encounter Visit Diagnoses Not on filedocumented in this encounter
--- OUTSIDE RECORDS SUMMARY | 2024-05-12 19:27 | XMS_ITS | Encounter Summary ---
Author Organization [facility] Address [address] [place] [address] Care Team Providers Care Chief Quality Officer Name Role Phone Liseth Valdez MD Primary Care Provider [phone] Encounter Details Date Type Department Care Team (Late st Contact Info) Description 08/11/2013 Results Only [facility] [phone] Jade Walter, DO [address] [place] [address] Social History Tobacco Use Types Packs/Day Years Used Date Smoking Tobacco: Never Assessed Sex and Gender Information Value Date Recorded Sex Assigned at Not on file Gender Identity Not on file Sexual Orientation Not on file documented as of this encounter Plan of Treatment Not on file documented as of this encounter Procedures Procedure Name Priority Date/Time Associated Diagnosis Comments SURGICAL PATHOLOGY Routine 08/11/2013 21 :34 EST documented in this encounter Results * SURGICAL PATHOLOGY (08/11/2013 21:34 EST) Pathology Report: SURGICAL PATHOLOGY REPORT Reports generated via electronic interface contain original data; however they are lacking the format of the original report. Caution should be taken when reading/interpreti ng unformatted reports. Name: ? AFIA RODRIGUEZ ? Accession #: ? [id number] ? : ? 1960 (Age: 53) ??F ? Collect Date: ? 08/11/2013 ? Location: ? [facility] ? Receive Date: ? 08/11/2013 ? Provider: JADE WALTER DO Copy to: SARIKA DUTTON ? Final Pathologic Diagnosis: ? GALLBLADDER, CHOLECYSTECTOMY: - ?Chronic cholecystitis. Document reviewed and electronically signed by: MINOO FLEMING MD Report ??Date: 08/13/2013 16:15 By the signature above, the attending physician certifies that he/she has personally conducted a gross and/or microscopic examination of the described specimens and rendered or confirmed the above diagnosis. Specimen(s) Received: Gallbladder Clinical History: Right upper quadrant pain Gross Description: ? Received in formalin labelled with proper patient identification (initials S, S) and gallbladder is a previously incised gallbladder (6.3 x 2.5 x 1.5 cm) with an attached segment of cystic duct (0.4 cm in length x 0.4 cm in diameter). ? The serosa is pink and glistening. The mucosa is green, smooth to velvety, and the wall averages 0.2 cm in thickness. The cystic duct lumen is not grossly patent. The cystic duct margin is inked black. No choleliths are present. ? Two associate financial representative sections and the inked en face cystic duct margin are submitted in 1. Josefa Briggs 08/12/2013 09:13 AM End of Report [facility] 08/11/2013 21:3 4 EST 08/11/2013 21:34 EST Jade Walter DO PATHOLOGY ORDERABLES [facility] [address] [place] [address] documented in this encounter Visit Diagnoses Not on filedocumented in this encounter Care Teams Chief Quality Officer Relationship Specialty Start Date End Date Liseth Valdez MD [address] [place] [address] PCP - General 06/28/13 08/19/13 documented as of this encounter
--- OUTSIDE RECORDS SUMMARY | 2024-05-12 19:27 | XMS_ITS | Encounter Summary ---
Author Organization [facility] Address [address] [place] [address] Care Team Providers Care Differential Tester Name Role Phone Phyllis Daniels PA-C Primary Care Provider + Encounter Details Date Type Department Care Team (Latest Contact Info) Description 12/13/2014 9:51 EDT - 12/13/2014 23:59 EDT Hospital Encounter [address] [address] Unknown, Provider, Discharge Disposition: Home or Self Care Social History Tobacco Use Types Packs/Day Years Used Date Smoking Tobacco: Never Assessed Sex and Gender Information Value Date Recorded Sex Assigned at Not on file Gender Identity Not on file Sexual Orientation Not on file documented as of this encounter Discharge Disposition Disposition Code Departure Means Destination Home or Self Halfway documented in this encounter Plan of Treatment Not on file documented as of this encounter Visit Diagnoses Not on filedocumented in this encounter Care Teams Differential Tester Relationship Specialty Start Date End Date Phyllis Daniels PA-C [address] [place] [id number] PCP - General 08/20/13 documented as of this encounter
--- OUTSIDE RECORDS SUMMARY | 2024-05-12 19:27 | XMS_ITS | Clinical Summary ---
Author Organization [facility] [place] [address] Care Team Providers Care Crew Mess Attendant Name Role Phone Phyllis Daniels Primary Care Provider [phone] Allergies No known active allergies Medications Medication Sig Dispensed Refills Start Date End Date Status fexofenadine (DEMOND) 180 mg Tablet TAKE ONE TABLET BY MOUTH EVERY DAY 4 02/03/2017 Active losartan (COZAAR) 25 mg Tablet TAKE ONE TABLET BY MOUTH EVERY DAY 3 04/15/2017 Active omeprazole (PRILOSEC) 20 mg Capsule, Delayed Release(E.C.) TAKE ONE CAPSULE BY MOUTH EVERY DAY 3 02/03/2017 Active venlafaxine (EFFEXOR-XR) 37.5 mg Capsule, Sust. Release 24 hr 04/25/2017 Active fenofibrate (TRIGLIDE) 160 mg Tablet Take 160 mg by mouth daily. Active multivitamin Capsule Take 1 capsule by mouth daily. Active Active Problems Problem Noted Date Diagnosed Date Visit for suture removal 10/20/2017 Epidermal cyst 10/09/2017 Seborrheic keratosis, inflamed 09/12/2015 Inflamed acrochordon 02/28/2015 Acne vulgaris 01/09/2015 Acrochordon 01/09/2015 Nevus 01/09/2015 Social History Tobacco Use Types Packs/Day Years Used Date Smoking Tobacco: Former Smokeless Tobacco: Never Sex and Gender Information Value Date Recorded Sex Assigned at Not on file Gender Identity Female 07/10/2020 7:24 PM EST Sexual Orientation Not on file Last Filed Vital Signs Vital Sign Reading Time Taken Comments Blood Pressure - - Pulse - - Temperature - - Respiratory Rate - - Oxygen Saturation - - Inhaled Oxygen Concentration - - Weight 78.9 kg (174 lb) 11/08/2020 10:23 AM EDT home scale Height 167.6 cm (5' 6) 11/08/2020 10:23 AM EDT reported Body Mass Index 28.08 11/08/2020 10:23 AM EDT Plan of Treatment Health Maintenance Due Date Last Done Comments CT Colonography 1960 Colonoscopy 1960 Colorectal Cancer Screening 1960 FIT DNA 1962 FIT 1960 Sigmoidoscopy (10 year) with FIT yearly 1962 Sigmoidoscopy 1960 HIV screen 1980 Hepatitis C Screening 1980 Tdap adult 1981 Tetanus vaccine 1981 HPV test 1992 PAP Smear 1992 Breast Cancer Share Decision Needed 2002 Breast Cancer screening 2002 Zoster vaccine (1 of 2) 2012 Advance Directive 2017 Covid-19 Vaccine ( - season) 2024 Influenza (Flu) vaccine (1 o f 1 - Influenza standard series) 04/25/2024 Care Teams Crew Mess Attendant Relationship Specialty Start Date End Date Phyllis Daniels PA [address] [place] [address] PCP - General Family Medicine 06/23/20
--- OUTSIDE RECORDS SUMMARY | 2024-05-12 19:27 | XMS_ITS | Encounter Summary ---
Author Organization [facility] Address [address] [place] [address] Care Team Providers Care Mat Tester Name Role Phone Sarika Lee PA-C Primary Care Provider + Encounter Details Date Type Department Care Team ([facility] st Contact Info) Description 01/06/[address] [facility] [phone] Sarika Lee PA-C [address] [place] [phone] Social History Tobacco Use Types Packs/Day Years [...] Diagnosis Comments PAP TEST- RESULT ONLY Routine 01/06/2019 0:00 EDT documented in this encounter Results * PAP TEST- RESULT ONLY (01/06/2019 0:00 EDT) Pathology Report: CYTOPATHOLOGY REPORT Reports generated via electronic interface contain original data; however they are lacking the format of the original report. Caution should be taken when reading/interpreti ng unformatted reports. Name: ? AFIA RODRIGUEZ ? Accession #: ? [id number] ? : ? 1960 (Age: 58) ??F ?Collect Date: ? 01/06/2019 ? Location: ? [facility] ? Receive Date: ? 01/08/2019 ? Provider: SARIKA LEE PA-C Copy to: ? Final Report SPECIMEN ADEQUACY ? Satisfactory for Evaluation - assessment of transformation zone component not applicable ( e.g. atrophy, vaginal sample, hysterectomy) GENERAL CATEGORIZATION ? Negative for Intraepithelial Lesion or Malignancy ?? Last Menstrual Period: 2011 Previous Gynecologic Pathology: Yes: Abnormal many years ago Treatment History: Cryotherapy Specimen/Source: ??Pap Test, Cervix/Endocervix, ThinPrep Imaging System with manual evaluation Document reviewed and electronically signed by: ? Anabela Chavez, HENRRY(ASCP) ? Report ??Date: 01/12/2019 13:58 HPV with Pap Test ? Date Ordered: ? 01/12/2019 ? Status: ?? Signed Out ?Date Complete: ? 01/13/2019 ? By: ??System Interface ? Date Reported: ? 01/13/2019 ? Interpretation RESULT: Negative for HPV. No E6 or E7 mRNA is detected from HPV types 16,18,31,33,35, 39,45,51,52,56,58, 59,66, and 68 by tablet technician mediated amplification. Comments Document reviewed and electronically signed by: ? System Interface ? Report date: 01/13/2019 By the signature above, the attending physician certifies that he/she has personally conducted a gross and/or microscopic examination of the described specimens and rendered or confirmed the above diagnosis. End of Report [facility] 01/06/2019 01/08/2019 Sarika Lee PA-C PATHOLOGY ORDERAnisha PEACE [facility] [address] [place] [address] documented in this encounter Visit Diagnoses Not on filedocumented in this encounter Care Teams Mat Tester Relationship Specialty Start Date End Date Sarika Lee PA-C [address] [place] [phone] PCP - General 08/20/13 documented as of this encounter
--- OUTSIDE RECORDS SUMMARY | 2024-05-12 19:27 | XMS_ITS | Encounter Summary ---
Author Organization [facility] Address [address] [place] [address] Care Team Providers Care Novelty Twister Tender Name Role Phone Phyllis Daniels PA-C Primary Care Provider + Encounter Details Date Type Department Care Team (Late st Contact Info) Description 02/13/2021 Lab Requisition [facility] Pathology & Laboratory Medicine - [address] [address] Outr Resulting Lab, Provider Social History Tobacco Use Types Packs/Day Years [...] Procedure Name Priority Date/Time Associated Diagnosis Comments ZZCOVID-19 TEST [facility] PCR Today 02/13/2021 9:11 EDT COVID-19 TESTING Routine 02/13/2021 9:11 EDT documented in this encounter Results * COVID-19 TEST [facility] PCR (02/13/2021 9:11 EDT) Swab ENTIRE NASOPHARYNX / Unknown 02/13/2021 9:11 EDT 02/13/2021 21:22 EDT Provider Outr Resulting Lab MICROBIOLOGY - GENERAL ORDERABLES [facility] [address] [place] [address] * COVID-19 TESTING (02/13/2021 9:11 EDT) COVID-19 rt-PCR Result Negative Negative 02/14/2021 14:41 EDT [facility] Comment: This test has not been FDA cleared or approved. This test has been authorized by FDA under an EUA for use by authorized laboratories. This test has been authorized only for detection of nucleic acid from 2019-nCoV, not for any other viruses or pathogens. This test is only authorized for the duration of the declaration that circumstances exist justifying the authorization of emergency use of in vitro diagnostic tests for detection and/or diagnosis of 2019-nCoV under section 564(b)(1) of Act, 21 U.S.C ?? 360bbb-3(b) (1), unless the authorization is terminated or revoked sooner. Negative results do not preclude 2019-nCoV infection and should not be used as the sole basis for treatment or other patient management decisions. Negative results must be combined with clinical observations, patient history, and epidemiological information. Testing was performed using the marcos SARS-CoV-2 assay ([employer]ET for [employer] on the Marcos 6800 System Performing Lab Marcos [address] [facility] 02/14/2021 14:41 EDT [facility] Swab 02/13/2021 9:11 EDT 02/13/2021 21:22 EDT Provider Outr Resulting Lab MICROBIOLOGY - GENERAL ORDERABLES [facility] [address] [place] [address] documented in this encounter Visit Diagnoses Not on filedocumented in this encounter Care Teams Novelty Twister Tender Relationship Specialty Start Date End Date Phyllis Daniels PA-C [address] [place] [address] PCP - General 08/20/13 documented as of this encounter
--- OUTSIDE RECORDS SUMMARY | 2024-05-12 19:27 | XMS_ITS | Encounter Summary ---
Author Organization [facility] Address [address] [place] [address] Care Team Providers Care Director Of Physiotherapy Services Name Role Phone Unknown, Provider Primary Care Provider [phone] Encounter Details Date Type Department Care Team (Latest Contact Info) Description 06/25/2013 11:12 EDT - 06/25/2013 23:59 EDT Hospital Encounter [address] [address] Unknown, Provider, Discharge Disposition: Home or Self Care Social History Tobacco Use Types Packs/Day Years Used Date Smoking Tobacco: Never Assessed Sex and Gender Information Value Date Recorded Sex Assigned at Not on file Gender Identity Not on file Sexual Orientation Not on file documented as of this encounter Discharge Disposition Disposition Code Departure Means Destination Home or Self Mcfp documented in this encounter Plan of Treatment Not on file documented as of this encounter Visit Diagnoses Not on filedocumented in this encounter Care Teams Director Of Physiotherapy Services Relationship Specialty Start Date End Date Unknown, ProviderMD PCP - General 11/01/11 06/27/13 documented as of this encounter
--- OUTSIDE RECORDS SUMMARY | 2024-05-12 19:27 | XMS_ITS | Encounter Summary ---
Author Organization [place] [address] Care Team Providers Care Special Events Planner Name Role Phone Phyllis Daniels Primary Care Provider [phone]- [phone] Reason for Visit * Reason Comments Follow-up Encounter Details Date Type Department Care Team (Late st Contact Info) Description 04/29/2017 2:15 PM EDT Office Visit Dermatology at [place] [address] [place] [address] Clay Golden MD [address] [facility] [place], [place] [id number] Acrochordon; Seborrheic keratosis, inflamed Social History Tobacco Use Types Packs/Day Years Used Date Smoking Tobacco: Former Smokeless Tobacco: Never Sex and Gender Information Value Date Recorded Sex Assigned at Not on file Gender Identity Female 07/10/2020 7:24 PM EST Sexual Orientation Not on file documented as of this encounter Progress Notes * Clay Golden MD - 04/29/2017 2:15 PM EDT PROBLEM: Irritated tags. Afia follows up after last being seen in 04/2016. She is concerned about some new lesions. Physical examination reveals verrucous papules, one on the right lateral neck and one on the right medial shoulder consistent with verruca. She does have other tags present on the submental neck, and the left lateral neck. A/P: Tags, verruca. a. After obtaining informed patient consent, the sites were anesthetized and removed with electrodesiccation. b. Wound care instructions and supplies given. c. Return to clinic p.r.n. for new lesions/concerns. Cc: NATO [place] documented in this encounter Plan of Treatment Not on file documented as of this encounter Visit Diagnoses Diagnosis Acrochordon Unspecified hypertrophic and atrophic condition of skin Seborrheic keratosis, inflamed Inflamed seborrheic keratosis documented in this encounter Care Teams Special Events Planner Relationship Specialty Start Date End Date Phyllis Daniels PA [address] [place] [address] PCP - General 10/25/14 04/11/20 documented as of this encounter
--- OUTSIDE RECORDS SUMMARY | 2024-05-12 19:27 | XMS_ITS | Encounter Summary ---
[place] [address] Care Team Providers Care Industrial Workers Name Role Phone Phyllis Daniels Primary Care Provider [phone]- [phone] Reason for Visit * Reason Comments Suture / Staple Removal Encounter Details Date Type Department Care Team (Late st Contact Info) Description 10/20/2017 1:00 PM EST Office Visit Dermatology at [address] [place] [address] Clay Golden MD [address] [facility] [place], [place] [id number] Visit for suture removal Social History Tobacco Use Types Packs/Day Years Used Date Smoking Tobacco: Former Smokeless Tobacco: Never Sex and Gender Information Value Date Recorded Sex Assigned at Not on file Gender Identity Female 07/10/2020 7:24 PM EST Sexual Orientation Not on file documented as of this encounter Progress Notes * Clay Golden MD - 10/20/2017 1:00 PM EST Problem: 1. Follow-up for suture removal and biopsy results Afia follows up and has had no problems postoperatively. The cyst excision site the left axillaryvault is healing well. She is here for suture removal today. Physical examination is excellent healing the biopsy site with minimal erythema no signs of infection no drainage little to no tenderness. Biopsy was read as a follicular cyst status post rupture with inflammation present of the left axillary vault. Assessment plan: Follow-up for suture removal and biopsy results 1. Patient reassured about benign biopsy results 2. Sutures removed 3. Recommend that she follow up here again on an as needed basis for new lesions/concerns. Patient questions answered Cc: NATO Carney documented in this encounter Plan of Treatment Not on file documented as of this encounter Visit Diagnoses Diagnosis Visit for suture removal Encounter for removal of sutures documented in this encounter Care Teams Industrial Workers Relationship Specialty Start Date End Date Phyllis Daniels PA [address] [place] [address] PCP - General 10/25/14 04/11/20 documented as of this encounter
--- OUTSIDE RECORDS SUMMARY | 2024-05-12 19:27 | XMS_ITS | Encounter Summary ---
Author Organization [facility] Address [address] [place] [address] Care Team Providers Care Cashier Supervisor Name Role Phone Unknown, Provider Primary Care Provider [phone] Encounter Details Date Type Department Care Team (Late st Contact Info) Description 06/25/2013 Results [address] [facility] [phone] Jade Walter, DO [address] [place] [address] Social History Tobacco Use Types [...] Date/Time Associated Diagnosis Comments SURGICAL PATHOLOGY Routine 06/25/2013 21 :41 EDT documented in this encounter Results * SURGICAL PATHOLOGY (06/25/2013 21:41 EDT) Pathology Report: SURGICAL PATHOLOGY REPORT Reports generated via electronic interface contain original data; however they are lacking the format of the original report. Caution should be taken when reading/interpreti ng unformatted reports. Name: ? AFIA RODRIGUEZ ? Accession #: ? [id number] ? : ? 1960 (Age: 52) ??F ? Collect Date: ? 06/25/2013 ? Location: ? [facility] ? Receive Date: ? 06/25/2013 ? Provider: JADE WALTER DO Copy to: ELIE ARANGO MD ? Final Pathologic Diagnosis: STOMACH, ANTRUM, BIOPSY: - ??Antral mucosa with mild reactive changes. - ??No Helicobacter pylori-like microorganisms identified on H&E-stained sections. ?? Document reviewed and electronically signed by: MICA JACOBSEN MD Report ??Date: 06/28/2013 15:44 By the signature above, the attending physician certifies that he/she has personally conducted a gross and/or microscopic examination of the described specimens and rendered or confirmed the above diagnosis. Specimen(s) Received: Gastric antrum Clinical History: Epigastric pain; colorectal screening Gross Description: ? Received in formalin labelled with proper patient identification (initials S, S) and 1. gastric antrum are four pink-arenas tissues (0.5 x 0.2 x 0.2 cm to 0.3 x 0.2 x 0.2 cm). Entirely submitted in [address] Rangel 06/26/2013 09:26 AM End of Report [facility] 06/25/2013 21:4 1 EDT 06/25/2013 21:41 EDT Jade Walter DO PATHOLOGY ORDERABLES [facility] [address] [place] [address] documented in this encounter Visit Diagnoses Not on filedocumented in this encounter Care Teams Cashier Supervisor Relationship Specialty Start Date End Date Unknown, Provider, PCP - General 11/01/11 06/27/13 documented as of this encounter
--- OUTSIDE RECORDS SUMMARY | 2024-05-12 19:27 | XMS_ITS | Encounter Summary ---
[place] [address] Care Team Providers Care Welding Operator Name Role Phone Phyllis Daniels Primary Care Provider [phone]- [phone] Reason for Visit * Reason Comments Follow-up Excision Encounter Details Date Type Department Care Team (Late st Contact Info) Description 10/09/2017 2:15 PM EST Procedure visit Dermatology at [place] [address] [place] [phone] Clay Golden MD [address] [facility] [place], [place] [id number] Epidermal cyst Social History Tobacco Use Types Packs/Day Years Used Date Smoking Tobacco: Former Smokeless Tobacco: Never Sex and Gender Information Value Date Recorded Sex Assigned at Not on file Gender Identity Female 07/10/2020 7:24 PM EST Sexual Orientation Not on file documented as of this encounter Progress Notes * Clay Golden MD - 10/09/2017 2:15 PM EST Clinical impression: Follicular cyst, left axillary vaults Size: 1.3 cm Deep suture: 4-0 Vicryl Surface suture: 4-0 Ethilon Follow-up: Will be in 10 days for suture removal biopsy results Indications for surgery, possible adverse outcomes, and activity restrictions discussed. Informed verbal consent was obtained. Skin surface was prepared with 4% chlorhexidine and draped in the usual sterile manner. Local anesthesia with 1% lidocaine, 1-100,000 epinephrine and 0.1 mEq/mL bicarbonate. Using a 15 blade, an elliptical excision was carried out over the top of the lesion. Undermining performed peripherally, hemostasis with electrodesiccation. A layered closure was performed, with specimen to pathology. Wound dressed, wound care reviewed. End length the suture line was 2.5 cm Follow-up in 10 days for suture removal biopsy results. Cc: Phyllis DUTTON documented in this encounter Plan of Treatment Not on file documented as of this encounter Procedures Procedure Name Priority Date/Time Associated Diagnosis Comments LAB SCAN 10/15/2017 12:00 AM EST documented in this encounter Results * SCAN DOC: LAB (10/15/2017 12:00 AM EST) Narrative 10/15/2017 12:00 AM EST Ordered by an unspecified provider. Scanning Provider MEDIA MGR SCAN EXT O RDR/RSLT documented in this encounter Visit Diagnoses Diagnosis Epidermal cyst Sebaceous cyst documented in this encounter Care Teams Welding Operator Relationship Specialty Start Date End Date Phyllis Daniels PA [address] [place] [address] PCP - General 10/25/14 04/11/20 documented as of this encounter
--- OUTSIDE RECORDS SUMMARY | 2024-05-12 19:27 | XMS_ITS | Encounter Summary ---
[place] [address] Care Team Providers Care Security Intern Name Role Phone Phyllis Daniels Primary Care Provider +1- [phone] Reason for Visit * Reason Comments Skin Lesion Encounter Details Date Type Department Care Team (Late st Contact Info) Description 09/12/2015 3:15 PM EST Office Visit Dermatology at [place] [address] [facility] [place] [address] Clay Golden MD [address] [facility] [address] [place] [address] Seborrheic keratosis, inflamed Social History Tobacco Use Types Packs/Day Years Used Date Smoking Tobacco: Former Sex and Gender Information Value Date Recorded Sex Assigned at Not on file Gender Identity Female 07/10/2020 7:24 PM EST Sexual Orientation Not on file documented as of this encounter Patient Instructions * Patient Instructions* Adenike Catalan LPN - 09/12/2015 3:25 PM EST Images from the original note were not included. [facility] Skin Tag Removal: After Your Visit Your [...] color and feel of the skin. ?? marine architect front of a full-length mirror. Look carefully [...] more? Visit our health information library at [email or web address] You can also view health information on [employer], your personal patient account. Log in or sign up today. Enter [id number] in the search box to learn more about Skin Tag Removal: After Your Visit. ?? [id number] [employer]. Care instructions adapted under license by [facility]. This care instruction is for use with your licensed healthcare professional. If you have questions about a medical condition or this instruction, always ask your healthcare professional. [employer] disclaims any warranty or liability for your use of this information. Content Version: 10.4.097901; Current as of: November 03, 2013 documented in this encounter Progress Notes * Clay Golden MD - 09/12/2015 3:51 PM EST Problem: Followup for additional skin tag removal. Afia follows up and is concerned about a new lesion on the right preauricular cheek. Afia Winchester's granddaughter, enjoyed learning about bees in [place] recently. Physical examination reveals not an actinic but actually an early pedunculated seborrheic keratosis. Assessment and Plan: Pedunculated seborrheic keratosis. a. After obtaining informed consent site was anesthetized and removed with light C and D and curettage. b. Triple antibiotic ointment and Band-Aid placed. Wound care instructions and supplies given. Recommend return to clinic p.r.n. for new lesions/concerns. COPY: Phyllis Magana P.A.-C. documented in this encounter Plan of Treatment Not on file documented as of this encounter Visit Diagnoses Diagnosis Seborrheic keratosis, inflamed Inflamed seborrheic keratosis documented in this encounter Care Teams Security Intern Relationship Specialty Start Date End Date Phyllis Daniels PA [address] [place] [address] PCP - General 10/25/14 04/11/20 documented as of this encounter
--- OUTSIDE RECORDS SUMMARY | 2024-05-12 19:27 | XMS_ITS | Referral Summary ---
Author Organization [facility] Address [address] [place] [address] Care Team Providers Care Paving Block Cutter Name Role Phone Phyllis Daniels PA-C Primary Care Provider + Encounters Date Type Department Care Team Description 03/26/2024 Lab Requisition [facility] Pathology & Laboratory Medicine - [facility] [address] [place] [address] Sheila Walls, DO Polyp of colon; Other [...] Orientation Not on file Plan of Treatment Not on file Procedures Procedure Name Priority Date/Time Associated Diagnosis [...] explore management options, if applicable. 03/30/2024 9:51 EDT [facility] Final Diagnosis A. COLON, 90 CM, POLYP, BIOPSY: - Colonic mucosa with no significant diagnostic abnormality. - Small submucosal lymphoid aggregate present. - No definite polyp identified. - Deeper sections x3 examined. B. RECTUM, POLYP, BIOPSY: - Hyperplastic polyp. 03/30/2024 9:51 [facility] Attestation There was significant resident/fellow involvement in the diagnostic evaluation of this case. By the signature below, the attending physician certifies that they have personally conducted a gross and/or microscopic examination of the described specimens and rendered or confirmed the above diagnosis. 03/30/2024 9:51 [facility] at 0951 Clinical History Screening colonoscopy; polyps and internal hemorrhoid 03/30/2024 9:51 [facility] Gross Description A. Received [...] processing. Stephanie Mott 03/27/2024 12:05 03/30/2024 9:51 T [facility] Resident/Osman w: Pito Wells DO 03/30/2024 9:51 T [facility] Performing Lab [facility] 03/30/2024 9:51 T [facility] Scanned Images 03/30/2024 9:51 T [facility] Tissue SPECIMEN FROM RECTUM / Unknown 03/26/2024 10:10 EDT 03/26/2024 17:39 EDT Tissue specimen (specimen) SPECIMEN FROM RECTUM / Unknown 03/26/2024 10:10 EDT 03/26/2024 17:39 EDT Sheila Walls DO PATHOLOGY ORDERABLES [facility] [address] [place] [phone] from Last 3 Months Care Teams Paving Block Cutter Relationship Specialty Start Date End Date Phyllis Daniels PA-C [address] [place] [phone] PCP - General 08/20/13
--- OUTSIDE RECORDS SUMMARY | 2024-05-12 19:27 | XMS_ITS | Encounter Summary ---
Author [place] [address] Care Team Providers Care Grocery Stocker Name Role Phone Phyllis Daniels Primary Care Provider +1- [phone] Reason for Visit * Reason Onset Date Comments Reminder Appointment 08/07/2020 Encounter Details Date Type Department Care Team (Late st Contact Info) Description 08/07/2020 Telephone [place] [phone] Lelia Daniel CCMA Reminder Appointment Social History Tobacco Use Types Packs/Day Years Used Date Smoking Tobacco: Former Smokeless Tobacco: Never Sex and Gender Information Value Date Recorded Sex Assigned at Not on file Gender Identity Female 07/10/2020 7:24 PM EST Sexual Orientation Not on file documented as of this encounter Miscellaneous Notes * Telephone Encounter - Lelia Daniel LNA - 08/07/2020 11:12 AM EST Called patient to review medications and allergies for their upcoming gastroenterology Type of Appointment: Telehealth appointment. Reach Patient during MA Check: No, Left Message Notes for the provider: Notes for the nurse: documented in this encounter Plan of Treatment Not on file documented as of this encounter Visit Diagnoses Not on filedocumented in this encounter Care Teams Grocery Stocker Relationship Specialty Start Date End Date Phyllis Daniels PA [address] [place], [place] [address] PCP - General Family Medicine 06/23/20 documented as of this encounter
--- OUTSIDE RECORDS SUMMARY | 2024-05-12 19:27 | XMS_ITS | Encounter Summary ---
[place] [address] Care Team Providers Care Correctional Officer Name Role Phone Phyllis Daniels Primary Care Provider [phone] Reason for Visit * Reason Comments Skin Check Encounter Details Date Type Department Care Team (Late st Contact Info) Description 01/09/2015 11:30 AM EDT Office Visit Dermatology at [place] [address] [facility] [place] [address] Clay Golden MD [address], [place] Anisha DERMATOLOGY [place], [place] [id number] Acne vulgaris; Acrochordon; Nevus Discharge Disposition: Home Social History Tobacco Use Types Packs/Day Years Used Date Smoking Tobacco: Former Sex and Gender Information Value Date Recorded Sex Assigned at Not on file Gender Identity Female 07/10/2020 7:24 PM EST Sexual Orientation Not on file documented as of this encounter Patient Instructions * Patient Instructions* Adenike Catalan LPN - 01/09/2015 11:31 AM EDT Images from the original note were not included. [facility] Moles: After Your Visit Your Care Instructions Moles are skin growths made up of cells that produce color (pigment). A mole can appear anywhere onthe skin, alone or in groups. Most people get a few moles during their first 20 years of life. Theyare usually brown in color but can be blue, black, or flesh-colored. Most moles are harmless and donot cause pain or other symptoms, unless you rub them or they bump against something. You usually do not need treatment for moles. But some can turn into cancer. Talk to your doctor if a mole bleeds, itches, cross, or changes size or color. Also let your doctor know if you get a new mole. Make sure to wear sunscreen and other sun protection every day to help prevent skin cancer. Follow-up care is a tineo part of your treatment and safety. Be sure to make and go to all appointments, and call your doctor if you are having problems. It???s also a good idea to know your test results and keep a list of the medicines you take. How can you care for yourself at home? ?? Check all the skin on your body once a month for skin growths or other changes, such as in the color and feel of the skin. ?? rotary surface grinder front of a full-length mirror. Look carefully at the front and back of your body. Then look at your right and left sides with your arms raised. ?? Bend your elbows and look carefully at your forearms, the back of your upper arms, and your palms. ?? Look at your feet, the bottoms of your feet, and the spaces between [...] ?? A sore that will not heal. To prevent skin cancer ?? Always wear sunscreen on exposed skin. Make sure the sunscreen blocks ultraviolet rays (both UVAand UVB) and has a sun protection factor (SPF) of at least 15. Use it every day, even when it is cloudy. Some doctors may recommend a higher SPF, such as 30. ?? Wear a wide-brimmed hat and long sleeves and pants if you are going to be outdoors for very long. ?? Avoid the sun between 10 a.m. and 4 p.m., which is the peak time for the sun's ultraviolet rays. ?? Avoid sunburns, tanning booths, and sunlamps. ?? Be sure to protect children from the sun. Sunburns in childhood damage the skin and increase therisk of cancer. When should you call for help? Watch closely for changes in your health, and be sure to contact your doctor if: ?? A mole looks different than it did before. It may have changed in size, color, shape, or the wayit looks. ?? You have a new mole. ?? You have a new pimple or skin growth that does not go away. Where can you learn more? Visit our health information library at [email or web address] You can also view health information on [employer], your personal patient account. Log in or sign up today. Enter M489 in the search box to learn more about Moles: After Your Visit. ?? [id number] [employer]. Care instructions adapted under license by [facility]. This care instruction is for use with your licensed healthcare professional. If you have questions about a medical condition or this instruction, always ask your healthcare professional. [employer] disclaims any warranty or liability for your use of this information. Content Version: 10.4.433597; Current as of: November 03, 2013 documented in this encounter Progress Notes * Clay Golden MD - 01/09/2015 12:34 PM EDT Problem: Skin checkup. 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 In October she was started on MetroGel for facial acneform dermatitis, and this has helped only partially. She is referred today by Phyllis Magana for a general skin checkup as well. The patient denies any past history of skin cancer or melanoma. She has a number of tags she would like to have removed. Also she points to a lesion on the right flank that did not resolve with LN2 therapy. Physical examination reveals a seborrheic keratosis on the right flank and a number of tags present around the base of her neck. She is a fair skinned woman with blue eyes but has a benign examination of the head and the neck, the chest, the back, hands, arms, forearms, thighs, and calves. She has open and closed comedonal acne present over the malar prominences and over her forehead. She has little to no rosacea. There are no telangiectasias. She has no facial erythema. Assessment and Plan: 1. Significant open and closed comedonal acne vulgaris, adult. a. Recommend that we begin tretinoin 0.1% cream, applying q.o.h.s. for one week, then q.h.s. one-half hour after washing; 20 grams dispensed with three refills. b. Continue metronidazole in the a.m. until she finishes her current supply, and then DC that. Further use of this will not likely contribute any more to the comedone reduction, which is now really her chief complaint. 2. Tags, base of neck; seborrheic keratosis, right flank. a. We will schedule a 15-minute appointment for removal of these with electrodesiccation. 3. Benign skin examination. a. Patient reassured about benign nevi, benign skin examination. Note: I would like to see the patient back after using the tretinoin cream for two to three months. See her back sooner for treatment of her tags. COPY: Phyllis Magana P.A.-C. documented in this encounter Plan of Treatment Not on file documented as of this encounter Visit Diagnoses Diagnosis Acne vulgaris Other acne Acrochordon Unspecified hypertrophic and atrophic condition of skin Nevus Benign neoplasm of skin, site unspecified documented in this encounter Care Teams Correctional Officer Relationship Specialty Start Date End Date Phyllis Daniels [place] [address] [place] [address] PCP - General 10/25/14 04/11/20 documented as of this encounter
--- OUTSIDE RECORDS SUMMARY | 2024-05-12 19:27 | XMS_ITS | Encounter Summary ---
Author Organization [facility] Address [address] [place] [address] Care Team Providers Care Supervisor Respiratory Name Role Phone Unavailable Primary Care Provider Unavailabl e Encounter Details Date Type Department Care Team (Late st Contact Info) Description 09/23/2007 Results Only [facility] [address] [place] [address] Elie Arango MD [facility] [address] [place], [place] [id number] Social History Tobacco Use Types Packs/Day Years Used Date Smoking Tobacco: Never Assessed Sex and Gender Information Value Date Recorded Sex Assigned at Not on file Gender Identity Not on file Sexual Orientation Not on file documented as of this encounter Plan of Treatment Not on file documented as of this encounter Procedures Procedure Name Priority Date/Time Associated Diagnosis Comments CYTOPATHOLOGY Routine 09/23/2007 0:00 EST documented in this encounter Results * CYTOPATHOLOGY (09/23/2007 0:00 EST) Pathology Report: CYTOPATHOLOGY REPORT Reports generated via electronic interface contain original data; however they are lacking the format of the original report. Caution should be taken when reading/interpreti ng unformatted reports. Name: ? RAQUELENS AFIA ? Accession #: ? [id number] : ? 1960 (Age: 47) ??F ?Collect Date: ? 09/23/2007 Location: ? [facility] ? Receive Date: ? 09/24/2007 Provider: ?ELIE ARANGO MD Copy to: ? Specimen/Source: ?ThinPrep Pap Test, Cervix/Endocervix, processed on TransGamingPrep Imaging System, with manual evaluation Last Menstrual Period: ? 09/11/07 Treatment History: ? Cryotherapy: Cervical Other: ? Additional clinical information: currently has genital warts ? SPECIMEN ADEQUACY ? Satisfactory for Evaluation - transformation zone component present GENERAL CATEGORIZATION ? Negative for Intraepithelial Lesion or Malignancy ? Document reviewed and electronically signed by: ? HENRRY Wilson(ASCP) ? Report Date: ??09/29/2007 12:11 End of Report [facility] 09/23/2007 09/24/2007 Elie Arango MD PATHOLOGY ORDERABLES [facility] [address] [place] [address] documented in this encounter Visit Diagnoses Not on filedocumented in this encounter
[2024-05-12 19:41] LABS: Abs Immature Grans 0.02 10^3/uL (0.0-0.06); Absolute Basophil Count 0.07 10^3/uL (0.0-0.2); Absolute Eosinophil Count 0.15 10^3/uL (0.0-0.7); Absolute Monocyte Count 0.95 10^3/uL (0.1-0.8); Absolute Neutrophil Count 2.93 10^3/uL (1.2-6.7); Eosinophils % 2.2 %; HCT 39.2 % (36.0-46.0); HGB 13.6 g/dL (11.2-15.7); Immature Grans % 0.3 %; Lymphocytes % 38.7 %; MCH 32.2 pg (27.0-33.0); MCHC 34.7 % (32.0-36.0); MCV 93 fL (80-95); Monocytes % 14.1 %; Neutrophils % 43.7 %; Platelet Count 319 10^3/uL (130-400); RBC 4.22 10^6/uL (3.93-5.22); RDW 12.3 % (11.7-14.6); RDW-SD 41.8 fL; WBC 6.72 10^3/uL (4.4-10.8)
[2024-05-12 19:57] LABS: ALT 101 U/L (14-59); AST 48 U/L (15-37); Albumin 3.9 g/dL (3.4-5.0); Alkaline Phosphatase 62 U/L (46-116); Anion Gap 10.6 mmol/L (3-11); BUN 21 mg/dL (7-18); Bilirubin, Total 0.24 mg/dL (0.2-1.0); CO2 25.4 mmol/L (21.0-32.0); CREATININE 1.1 mg/dL (0.55-1.02); Calcium 10.1 mg/dL (8.5-10.1); Calculated LDL 126 mg/dL (<100); Chloride 105 mmol/L (98-107); Cholesterol 231 mg/dL (<200); Estimated GFR 57.17 (mL/min/1.73m2); Glucose 120 mg/dL (74-106); HDL Cholesterol 29 mg/dL (40-60); Potassium 3.9 mmol/L (3.5-5.1); Sodium 141 mmol/L (136-145); Total Protein 7.4 g/dL (6.4-8.2); Triglyceride 380 mg/dL (<150)
== END 2024-05-12 19:24 | disposition home or self-care (01) ==
LOC: NCHCN 19:23
PROVIDERS: PCP Physician Assistant Medical; Visit Provider Physician Assistant Medical
DX: E78.5 Hyperlipidemia, unspecified (principal); K76.0 Fatty (change of) liver, not elsewhere classified
CPT/HCPCS: 80053; 80061; 83036; 85025

== ENCOUNTER 2024-10-20 16:34 | Outpatient (REF) | payer MEDICAID, SELFPAY ==
--- NOTE | 2024-10-20 15:00 | PAPFT_PTH ---
PATIENT: Afia Ernandez LOC: [facility]#:[id number] AGE/SX: 64/F ROOM: RE10/20/[address]: Phyllis Daniels : 1960 BED: DIS: 10/20/2024 SPEC #: [id number] RECD: 10/21/24 12:58 STATUS: ALEXEY REMaurice #: [id number] CLARA: 10/20/24 15:[address]: Phyllis Daniels DEPT: [facility] Cytology RECD BY: Evelyn Garibay Tissues: 1 - CX/ENDOCX FOR PAP SMEARS Procedures: PAP THIN PREP/[facility] Screening HPV DNA PROBE Comments: [id number] (HPV 16 & 18/45)
== END 2024-10-20 16:35 | disposition home or self-care (01) ==
LOC: NCHCN 16:34
PROVIDERS: PCP Physician Assistant Medical; Visit Provider Physician Assistant Medical
DX: Z11.51 Encounter for screening for human papillomavirus (HPV) (principal); Z01.419 Encounter for gynecological examination (general) (routine) without abnormal findings
CPT/HCPCS: 88142; 87624

== ENCOUNTER 2024-11-15 02:11 | Outpatient (CLI) | payer MEDICAID, SELFPAY ==
--- NOTE | 2024-11-15 15:53 | DI.MAMMO_ITS ---
Exam(s) MAMMO SCREENING EXAM: MAMMO SCREENING CLINICAL HISTORY: SCREENING MAMMO Z12.31. TECHNIQUE: Bilateral full field digital CC and MLO mammographic images were obtained with 3D tomosyn thesis and utilizing computer aided detection (CAD). COMPARISON: Prior mammograms were reviewed. FINDINGS: Fibroglandular tissue pattern is again noted be moderately dense. There is partially calcified nodule posteriorly in the left breast which is probably a fibroadenoma. Asymmetric density laterally in the left breast located 11 cm in from the nipple is unchanged from p rior mammograms. There are no new spiculated masses nor new malignant appearing microcalcification groups. There is no significant architectural distortion nor skin thickening-retraction. IMPRESSION: Benign findings. No radiographic evidence of malignancy. BI-RADS Category 2 - Benign Findings Breast Density - Category C - Heterogeneously dense Breast density Category C or D implies that the patient has dense breast tissue. Dense breast tissue can make it harder to find cancer on a mammogram. Dense breast tissue is also associated with an incr eased risk of breast cancer. This information about the result of the mammogram report was provided to the patient to raise their awareness. Use this report when you speak with the patient about their risks for breast cancer, which includes their family history. At that time, you may recommend additional screening tests (Ultrasoun d or MRI) as these tests may add significant information. A negative radiographic report should not delay biopsy if a dominant or clinically suspicious mass is present. Up to ten percent of cancers are not identified on mammography. A negative report may reinforce clinical impression. Adenosis and dense breasts may obscure an underlying neoplasm. False positive reports average 6 to 10%. Patient will receive a letter notifying them of these results.
== END 2024-11-15 02:31 ==
LOC: DI 02:11
PROVIDERS: PCP Physician Assistant Medical; Visit Provider Physician Assistant Medical
DX: Z12.31 Encounter for screening mammogram for malignant neoplasm of breast (principal); R92.2 Inconclusive mammogram; R92.333 Mammographic heterogeneous density, bilateral breasts; D24.2 Benign neoplasm of left breast
CPT/HCPCS: 77063; 77067